=== PATIENT | male | born 1945 | race Caucasian/White ===

== ENCOUNTER 2016-08-19 17:58 | Inpatient (IN) ==
[2016-08-19] MEDS ORDERED: ONDANSETRON 4 MG/2 ML VIAL IV STA (18:31)
[2016-08-19] MEDS ORDERED: HYDROmorphone 2 MG/1 ML VIAL IV STA (18:31)
[2016-08-19] MEDS ORDERED: PIPERACILLIN/TAZOBACTAM 3,375 MG in SODIUM CHLORIDE 0.9% 100 ML IV STA (18:31)
[2016-08-19] MEDS ORDERED: PANTOPRAZOLE 40 MG VIAL IV STA (18:31)
[2016-08-19] MEDS ORDERED: SODIUM CHLORIDE 0.9% 1,000 ML IV STA (18:31)
[2016-08-19] MEDS ORDERED: ONDANSETRON 4 MG/2 ML VIAL ONE (18:44)
[2016-08-19] MEDS ORDERED: PANTOPRAZOLE 40 MG VIAL IV ONE (18:44)
[2016-08-19] MEDS ORDERED: PIPERACILLIN/TAZOBACTAM 3,375 MG VIAL IV ONE (18:44)
[2016-08-19] MEDS ORDERED: HYDROmorphone 2 MG/1 ML VIAL ONE (18:44)
--- NOTE | 2016-08-19 18:53 | Emergency Department Note ---
IAlexandr Brittany, am scribing for, and in the presence of, Stalin Capellan MD 18:40. Marilia Gongora Charles R, MD, personally performed the services described in this documentation, ascribed by Christie Strange in my presence, and it is both accurate and complete 853 . Arrival - Arrival Chief Complaint: Abdominal / Flank Pain Stated Complaint: nausea/cholostomy packed ED Nursing Triage Note: C/O States has a colostomy bag x 1 year., states today at 1500 he feels like his bag is stopped up or has a blockage, states nothing is draining out of the bag since 1500 today., states the last BM he can remember is on saturday., + nasuea., + vomited , + pain in the abdomen Mode of Arrival: Wheelchair Limitations: No Limitations Source: Patient Time Seen by Provider: 08/19/16 18:25 - History of Present Illness HPI Narrative: This is a 70 y/o white male,who presents to the ED with 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 He localizes the abdomen pain to the left lower quadrant. He states the pain is more so around his colostomy bag. He states he has had the colostomy bag for a year secondary to diverticulitis. He reports vomiting but states this is secondary to riding in the car on the way to the ED. He states the last time he has eaten was at noon today. He reports being on Aspirin and Plavex. He reports the area around the colostomy bag has been swollen today. Pt has no other complaints/pain in the ED at this time. Pt has a PMHx of CAD, thyroid disorder, and pancreatitis. Pt has had a cardiac cath with 2 stents, appendectomy, cholecystectomy, and colonoscopy. Pt has a family medical Hx of heart disease. 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) Consistency: constant Severity: severe Allergies/Adverse Reactions: Allergies Allergy/AdvReac Type Severity Reaction Status Date / Time No Known Allergies Allergy Verified 08/19/16 18:07 Home Medications: Home Medications Medication Instructions Recorded Confirmed Type Aspirin [Ecotrin] 325 mg PO DAILY 10/28/14 08/19/16 History Clopidogrel [Plavix] 75 mg PO DAILY 10/28/14 08/19/16 History Gabapentin Cap/Tab [Neurontin 300 mg PO TID 10/28/14 08/19/16 History Cap/Tab] Simvastatin [Zocor] 40 mg PO DAILY tablet 06/14/15 08/19/16 Rx Tamsulosin [Flomax] 0.4 mg PO DAILY capsule 06/14/15 08/19/16 Rx Acetaminophen Tab [Tylenol Tab] 650 mg PO Q6H PRN #0 tablet 02/21/16 08/19/16 Rx Montelukast Tab [Singulair Tab] 10 mg PO DAILY 04/13/16 08/19/16 History Ranitidine Tab [Zantac Tab] 150 mg PO BID 04/13/16 08/19/16 History Levothyroxine Tab [Synthroid Tab] 50 mcg PO DAILY 08/19/16 08/19/16 History Review of System - Review of System 12 point system: reviewed and no additional remarkable complaints except as stated - Review of System Gastrointestinal: Present: abdominal pain, nausea, vomiting Medical,Surgical,& Family Hx - Medical History Cardio: History of: CAD Neurology: No history of: Seizures HEENT: History of: HEENT Problems (cataract left eye) Endocrine: History of: Thyroid Disorder (takes levothyroxine) Gastrointestinal: History of: Hemorrhoids, Pancreatitis, Gastrointestinal Cancer , GI Problems (COLOSTOMY PLACEMENT PER DR. OLSEN 2016) Hematology: No history of: Blood Transfusion Reaction - Surgical History Cardiac Surgeries: Sugical HX of: Cardiac Catheterization (2 stents placed...2012) Abdominal Surgeries: Surgical HX of: Appendectomy (not certain), Cholecystectomy , Colonoscopy Orthopedic Surgeries: Patient denies;: Orthopedic Surgery - Family History Family History: Reports;: Family Heart Disease (parents) - Social History Smoking Status: Smoker, status unknown Frequency of Alcohol Use: None Type of Drug Use: None Exam Vital Signs: Vital Signs Temperature 97.6 F 08/19/16 18:02 Pulse Rate 105 H 08/19/16 19:00 Respiratory Rate 18 08/19/16 19:00 Blood Pressure 144/85 08/19/16 19:00 O2 Sat by Pulse Oximetry 99 08/19/16 19:00 - General General appearance: alert, in no apparent distress - Head Head exam: Present: atraumatic, normocephalic, normal inspection - Eye Eye exam: Present: normal appearance, PERRL, EOMI. Absent: nystagmus, miosis, mydriasis - ENT ENT exam: Present: normal exam, normal oropharynx, mucous membranes moist, TM's normal bilaterally, normal external ear exam - Neck Neck exam: Present: normal inspection, full ROM, trachea midline. Absent: tenderness, meningismus, lymphadenopathy, thyromegaly - Chest Chest inspection: Present: normal inspection, symmetric chest wall rise. Absent : tenderness, rash, abscess - Respiratory Respiratory exam: Present: normal lung sounds bilaterally. Absent: rales, respiratory distress, rhonchi, stridor, wheezes - Cardiovascular Cardiovascular exam: Present: regular rate, normal rhythm, normal heart sounds. Absent: murmur, rubs, gallop, clicks - Abdominal Exam Abdominal exam: Present: soft, tenderness (Tenderness around the colostomy bag area), hernia (What appears to be an incarcerated hernia), other (There is absoultely no bowel sounds). Absent: distention, guarding, rebound, rigidity - Rectal Exam Rectal exam: Present: deferred - Extremities Exam Extremities exam: Present: normal inspection, full ROM, normal capillary refill. Absent: tenderness, pedal edema, joint swelling, calf tenderness - Back Exam Back exam: Present: normal inspection, full ROM. Absent: tenderness, muscle spasm, rashes - Neurological Exam Neurological exam: Present: alert, oriented X3, CN II-XII intact. Absent: motor sensory deficit - Psychiatric Psychiatric exam: Present: normal affect, normal mood. Absent: depressed, agitated, anxious, flat affect, manic - Skin Skin exam: Present: warm, dry, intact, normal color. Absent: rash, cyanosis, diaphoresis, erythema, pallor, mottled Course - Consultations Consultation #1: Dr. Smalls saw patient emergency room he is going to come to emergency surgery for incarcerated abdominal hernia from the stoma Time: 19:16 Results - Labs CBC & BMP: 08/19/16 18:24 Lab Results: I have reviewed the patients labs Critical Care Time Critical Care Time: Yes Total Critical Care Time: 60 Disposition Clinical Impression: Abdominal pain, History of colostomy, Incarcerated hernia of abdominal cavity, Acute abdomen Case discussed with: patient, patient's family Disposition: Still a Patient Condition: Critical Time of Disposition: 19:17
[2016-08-19 19:08] LABS: Basophils % 0.4 % (0.0-0.8); Eosinophils # 0.3 10*3/uL (0.0-0.87); Eosinophils % 2.7 % (0.00-10.9); Hematocrit 38.1 VOL% (42.0-52.0); Hemoglobin 12.8 GM/DL (14.0-18.0); Immature Granulocytes % 0.5 %; Immature Granulocytes Absolute 0.05 #; Lymphocytes # 2.5 10*3/uL (1.4-4.0); Lymphocytes % 23.6 % (21.2-54.2); Mean Corpuscular HGB Conc 33.6 GM/DL (32-36); Mean Corpuscular Hemoglobin 29 PG (27-34); Mean Corpuscular Volume 84.9 FL (87-102); Mean Platelet Volume 9.1 FL (9.6-12.0); Monocytes # 0.8 10*3/uL (0.11-0.8); Monocytes % 7.4 % (1.7-12.7); Neutrophils # 6.8 10*3/uL (1.4-7.4); Neutrophils % 65.4 % (38.7-73.9); Platelet Count 355 T/CUMM (130-400); Red Blood Count 4.49 MC/CUMM (3.8-5.5); Red Cell Distribution Width 13.9 % (9.3-17.3); White Blood Count 10.5 T/CUMM (4-12)
[2016-08-19 19:19] LABS: Lactic Acid 1.9 MMOL/L (0.4-2.0)
[2016-08-19 19:22] LABS: Alanine Aminotransferase 14 U/L (16-61); Albumin 3.8 G/DL (3.4-5.0); Alkaline Phosphatase 96 U/L (45-117); Amylase 28 U/L (25-115); Aspartate Amino Transferase 12 U/L (0-37); Bilirubin,Total < 0.39 MG/DL (0.2-1.0); Blood Urea Nitrogen 10 MG/DL (7-18); Calcium 9.1 MG/DL (8.5-10.1); Glucose 173 MG/DL (74-106); Magnesium 2.2 MG/DL (1.8-2.4); Osmolality,Calculated 283.3 MOS/KG (273-304); Potassium 3.7 MMOL/L (3.5-5.1); Sodium 141 MMOL/L (136-145); Total Protein 7.7 G/DL (6.4-8.3); Troponin I Only < 0.015 NG/ML (0.00-0.045)
--- NOTE | 2016-08-19 19:24 | XRay Report ---
Single view the chest. Indication: Upper abdominal pain. Comparison: April 13, 2016. There is mild to moderate atelectasis which has developed in the left lung base. The heart is normal in size. There is calcific plaque within the right knob. The pulmonary vasculature is normal. The right lung is clear. Stable osseous structures. Impression: Development of mild to moderate left basilar atelectasis. PROCEDURE INTERPRETED AT [facility] DEPARTMENT OF RADIOLOGY Final Report Signed by: Dr. Qing Brewster
--- NOTE | 2016-08-19 19:26 | XRay Report ---
Abdomen complete. Indication: Generalized abdominal pain. Comparison: January 27, 2016. Calcified granuloma is seen in the medial aspect of the left lung base. Numerous surgical clips are present within the right upper quadrant. There is considerable fecal material within the colon. Bowel herniates into an ostomy site at the left lower quadrant. This was seen on the previous CT from February 16, 2016. There is air in mildly prominent small intestine. There are a few air-fluid levels noted. No free air. Normal osseous structures. Impression: 1. Constipation. 2. Bowel herniates into an ostomy site in the left lower quadrant. This is a stable finding. PROCEDURE INTERPRETED AT [facility] DEPARTMENT OF RADIOLOGY Final Report Signed by: Dr. Qing Brewster
--- NOTE | 2016-08-19 19:30 | General Surg History&Physical ---
Assessment and Plan (1) Incarcerated hernia of abdominal cavity Status: Acute Assessment and plan: This patient has an incarcerated parastomal hernia. This is firm and nonreducible. The patient has a bowel obstruction from this. I have recommended exploratory laparotomy with parastomal hernia repair. The patient has not had a colonoscopy or interrogation of the remainder of his GI tract so I do not think it would be a good idea to try to come back up right now in addition he is on Plavix and had a recent cardiac stent placed I think doing the minimal possible to get him well is most prudent plan at this time. I discussed the operation in detail with the patient and the expected outcomes have been reviewed. We will proceed with surgery tonight. Current Visit: Yes History of Present Illness Chief complaint: Abdominal pain with nausea and vomiting History of present illness: Mr. Willams is a 70 year old male who is admitted to the ER with abdominal pain and firmness over his parastomal hernia. He has also had nausea and vomiting. He had a colostomy done for perforated diverticulitis by Dr. Olsen in April 2015 and recently had coronary artery stents placed in April 2016 and is currently on Plavix and aspirin. He presents to the ER today with acute tenderness over his parastomal hernia which is been present for some time. He also developed nausea and vomiting. Home Medications Medication Instructions Recorded Confirmed Type Aspirin [Ecotrin] 325 mg PO DAILY 10/28/14 08/19/16 History Clopidogrel [Plavix] 75 mg PO DAILY 10/28/14 08/19/16 History Gabapentin Cap/Tab [Neurontin 300 mg PO TID 10/28/14 08/19/16 History Cap/Tab] Simvastatin [Zocor] 40 mg PO DAILY tablet 06/14/15 08/19/16 Rx Tamsulosin [Flomax] 0.4 mg PO DAILY capsule 06/14/15 08/19/16 Rx Acetaminophen Tab [Tylenol Tab] 650 mg PO Q6H PRN #0 tablet 02/21/16 08/19/16 Rx Montelukast Tab [Singulair Tab] 10 mg PO DAILY 04/13/16 08/19/16 History Ranitidine Tab [Zantac Tab] 150 mg PO BID 04/13/16 08/19/16 History Levothyroxine Tab [Synthroid Tab] 50 mcg PO DAILY 08/19/16 08/19/16 History Allergies Allergy/AdvReac Type Severity Reaction Status Date / Time No Known Allergies Allergy Verified 08/19/16 18:07 Medical,Surgical,& Family Hx - Medical History Cardio: History of: CAD Neurology: No history of: Seizures HEENT: History of: HEENT Problems (cataract left eye) Endocrine: History of: Thyroid Disorder (takes levothyroxine) Gastrointestinal: History of: Hemorrhoids, Pancreatitis, Gastrointestinal Cancer , GI Problems (COLOSTOMY PLACEMENT PER DR. OLSEN 2016) Hematology: No history of: Blood Transfusion Reaction - Surgical History Cardiac Surgeries: Sugical HX of: Cardiac Catheterization (2 stents placed...2012) Abdominal Surgeries: Surgical HX of: Appendectomy (not certain), Cholecystectomy , Colonoscopy Orthopedic Surgeries: Patient denies;: Orthopedic Surgery - Family History Family History: Reports;: Family Heart Disease (parents) - Social History Smoking Status: Smoker, status unknown Frequency of Alcohol Use: None Type of Drug Use: None Exam - Constitutional Vitals: Period Temp Pulse Resp BP Sys/Butler Pulse Ox Last 24 Hr 97.6 F-97.6 F 90-105 18-18 127-176/67-94 97-99 General appearance: normal weight, no acute distress - Head Head exam: Present: normal inspection, normocephalic - Eye Eye exam: Present: EOMI Pupils: Present: PATRICIO - ENT ENT exam: Present: normal exam Mouth exam: Present: normal external inspection, normal voice - Neck Neck exam: Present: normal inspection, trachea midline - Respiratory Respiratory exam: Present: clear to auscultation bilaterally. Absent: accessory muscle use, chest wall tenderness - Cardiovascular Cardiovascular exam: Present: tachycardia. Absent: RRR, systolic murmur - GI/Abdominal GI/Abdominal exam: Present: hypoactive bowel sounds, tenderness (There is acute tenderness over the parastomal hernia which is firm to the touch. There is no ostomy output), other (There is a firm mass over the parastomal hernia which is exquisitely tender and nonreducible.). Absent: guarding, rebound - Extremities Exam Extremities exam: Present: normal inspection, normal capillary refill - Back Exam Back exam: Present: normal inspection - Neurological Exam Neurological exam: Present: alert, oriented X3 Speech: Present: normal - Skin Skin exam: Present: normal color, warm - Constitutional Constitutional: Present: as per HPI - EENT Nose, mouth and throat: Present: as per HPI - Cardiovascular Cardiovascular: Present: as per HPI - Respiratory Respiratory: Present: as per HPI - Gastrointestinal Gastrointestinal: Present: as per HPI - Genitourinary Genitourinary: Present: as per HPI - Musculoskeletal Musculoskeletal: Present: as per HPI - Neurological Neurological: Present: as per HPI - Endocrine Endocrine: Present: as per HPI Hematologic/Lymphatic: Present: as per HPI Quality Measures - VTE Contraindication to Pharmacological VTE Prophylaxis: High Risk of Bleeding Results - Labs CBC & BMP: 08/19/16 18:24 08/19/16 18:24 - Diagnostic Findings Procedure: Chest x-ray: image reviewed by FRAN singh x-ray: image reviewed by me
[2016-08-19] MEDS ORDERED: PROPOFOL 1,000 MG/100 ML BOTTLE IV ONE (20:47)
--- NOTE | 2016-08-19 20:48 | Operative Note ---
Date of procedure: 08/19/16 Pre-op diagnosis: Incarcerated parastomal hernia Post-op diagnosis: same Procedure: Preoperative diagnosis Incarcerated parastomal hernia Postoperative diagnosis Incarcerated parastomal hernia with small bowel strangulation Procedures performed 1. Exploratory laparotomy 2. Reduction of parastomal hernia Findings A loop of small bowel was stuck in the parastomal hernia and an additional adhesion between the small bowel and the abdominal wall and omentum had created an internal hernia that had resulted in necrotic appearing small bowel. This was reduced manually by pushing on the ostomy site and also pulling gently internally and the hernia was reduced. The bowel pinked up some but still appeared slightly purple and dusky in portions of the area that was reduced. Once all of the bowel contents were reduced I made the decision to leave the abdomen open with a temporary abdominal closure rather than commit to any bowel resection up front with hopes that his small bowel pink up over the next day or 2 and he will not require any resection. Complications None apparent Specimen None Anesthesia GETA Blood loss Minimal Indications Incarcerated parastomal hernia Description of procedure The patient was taken to the operating room and transferred to the operating table in the supine position. Pressure points were padded and SCDs were placed to lower extremities. General endotracheal anesthesia was administered. The abdomen was prepped with Betadine and draped sterilely. Preoperative antibiotics were administered, and a timeout was performed. The abdomen was entered with a midline incision using the patient's prior midline incision and electrocautery was used to open the fascia. There is a lot of adhesions to the midline and these were taken down with sharp dissection. Once the adhesions were taken down in the midline it became apparent that there was necrotic distended small bowel there was looping into the parastomal hernia. In addition , there were adhesive bands between the small bowel and the abdominal wall as well as several pieces of omentum that had resulted in a necrotic appearing strangulated small bowel segment. This hernia was reduced with adhesio lysis and also with external pressure on the ostomy site. Once the mesentery was untwisted the small bowel pinked up. There was some areas of ecchymosis on the bowel wall and also some purplish areas and skip lesions that appeared dusky and overall there was nothing grossly necrotic after waiting several minutes and reevaluating the bowel and nothing was resected upfront. There is enough concern that I decided to close the abdomen with a temporary abdominal closure using a wound VAC and plan for second look laparotomy in the next 24-48 hours with plans for definitive repair of the parastomal hernia and reevaluation of the small bowel at that time. The patient was dressed with an abscess or abdominal wound VAC in his ostomy appliance was reapplied. He was transferred to the ICU and left on the ventilator. Postoperative plan Second look laparotomy in 24-48 hours Anesthesia: JOLENE Surgeon / Physician: Nabeel Smalls Estimated blood loss: minimal Specimens: none sent Condition: stable Disposition: ICU Results - Labs CBC & BMP: 08/19/16 18:24 08/19/16 18:24 Discharge Plan - Discharge Medications No Action Gabapentin Cap/Tab [Neurontin Cap/Tab] 300 mg PO TID Clopidogrel [Plavix] 75 mg PO DAILY Aspirin [Ecotrin] 325 mg PO DAILY Simvastatin [Zocor] 40 mg PO DAILY tablet Tamsulosin [Flomax] 0.4 mg PO DAILY capsule Montelukast Tab [Singulair Tab] 10 mg PO DAILY Ranitidine Tab [Zantac Tab] 150 mg PO BID Levothyroxine Tab [Synthroid Tab] 50 mcg PO DAILY Acetaminophen Tab [Tylenol Tab] 650 mg PO Q6H PRN #0 tablet PRN Reason: Pain Mild (1-3) And/Or Fever - Follow Up or Referral - Forms/Instructions
[2016-08-19 20:49] LABS: Amorphous Crystals,Urine Occasional /HPF (Few); Apearance,Urine Slightly Hazy (Clear); Bilirubin,Urine Negative (Negative); Blood, Urine Negative (Negative); Glucose,Urine (UA) Negative (Negative); Hyaline Casts,Urine 2 /LPF (0-3); Ketones,Urine 5 mg/dL (Negative); Mucus,Urine Occasional /LPF (Occasional); Nitrite,Urine Negative (Negative); Protein,Urine Negative; RBC,Urine 2 /HPF (0-4); Urine Color Yellow (Yellow); Urine Specific Gravity 1.011 (1.001-1.035); Urine Urobilinogen < 2.0 EU/DL (0.2-1.0); WBC,Urine 1 /HPF (0-6)
[2016-08-19] MEDS ORDERED: fentaNYL 100 MCG/2 ML VIAL ONE (20:56)
[2016-08-19] MEDS ORDERED: MIDAZOLAM 2 MG/2 ML VIAL ONE (20:56)
[2016-08-19] MEDS ORDERED: DESFLURANE 1 UNIT/15 MINUTE INH ONE (20:56)
[2016-08-19] MEDS: PROPOFOL 1,000 MG/100 ML BOTTLE IV SCH (21:00)
[2016-08-19 21:26] LABS: ABG Base Excess 0.9 MMOL/L (-2.5-2.5); ABG HCO3 25.2 MMOL/L (20-26); ABG Oxygen Saturation 99.3 % (95-100); ABG PCO2 47.5 MM HG (35-48); ABG PH 7.361 (7.35-7.45); Allen Test Positive; Pt O2 Delivery Device Ventilator
[2016-08-19] MEDS ORDERED: PROMETHAZINE 25 MG/1 ML VIAL IM PRN (21:28)
[2016-08-19] MEDS: LACTATED RINGERS 1,000 ML IV SCH (21:33)
[2016-08-19] MEDS: HYDROmorphone 2 MG/1 ML VIAL IV PRN (21:59)
[2016-08-20] MEDS: GABAPENTIN 300 MG CAPSULE PO SCH ×4 (00:02→23:11)
[2016-08-20] MEDS: FAMOTIDINE 20 MG TABLET PO SCH ×3 (00:02→12:29)
[2016-08-20] MEDS: HYDROmorphone 2 MG/1 ML VIAL IV PRN ×5 (00:30→17:56)
--- NOTE | 2016-08-20 02:37 | EKG Report ---
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
[2016-08-20 03:24] LABS: ABG Base Excess 2.8 MMOL/L (-2.5-2.5); ABG HCO3 27.8 MMOL/L (20-26); ABG Oxygen Saturation 98.2 % (95-100); ABG PCO2 44.3 MM HG (35-48); ABG PH 7.416 (7.35-7.45); ABG PO2 125.3 MM HG (80-95); ABG TCO2 29.2 MMOL/L (23-27); Allen Test Positive; Pt O2 Delivery Device Ventilator
[2016-08-20] MEDS ORDERED: LACTATED RINGERS 1,000 ML IV ONE ×5 (04:51→23:50)
[2016-08-20 05:12] LABS: Basophils % 0.3 % (0.0-0.8); Eosinophils % 0.2 % (0.00-10.9); Hematocrit 34.5 VOL% (42.0-52.0); Hemoglobin 11.3 GM/DL (14.0-18.0); Immature Granulocytes % 0.4 %; Immature Granulocytes Absolute 0.06 #; Lymphocytes # 0.4 10*3/uL (1.4-4.0); Lymphocytes % 2.4 % (21.2-54.2); Mean Corpuscular HGB Conc 32.8 GM/DL (32-36); Mean Corpuscular Hemoglobin 28 PG (27-34); Mean Corpuscular Volume 86.3 FL (87-102); Mean Platelet Volume 9.2 FL (9.6-12.0); Monocytes # 0.7 10*3/uL (0.11-0.8); Monocytes % 4.6 % (1.7-12.7); Neutrophils # 14.5 10*3/uL (1.4-7.4); Neutrophils % 92.1 % (38.7-73.9); Platelet Count 267 T/CUMM (130-400); Red Cell Distribution Width 13.8 % (9.3-17.3); White Blood Count 15.7 T/CUMM (4-12)
[2016-08-20 05:39] LABS: Calcium 7.8 MG/DL (8.5-10.1); Osmolality,Calculated 283.1 MOS/KG (273-304)
[2016-08-20 05:52] LABS: Band Neutrophils 15 % (0-10); Hypochromasia 1+; Lymphocytes 1 % (20-55); Metamyelocytes 1 %; Segmented Neutrophils 82 % (50-85); Total Cells Counted 100
[2016-08-20 05:53] LABS: Microcytosis Slight
[2016-08-20] MEDS ORDERED: ALBUMIN IV ONE (06:47)
[2016-08-20] MEDS ORDERED: ALBUMIN 5% 12.5 GM/250 ML VIAL IV ONE ×3 (06:48→23:48)
[2016-08-20] MEDS: LACTATED RINGERS 1,000 ML IV SCH ×3 (06:49→23:14)
[2016-08-20] MEDS: PROPOFOL 1,000 MG/100 ML BOTTLE IV SCH ×2 (06:57→23:10)
--- NOTE | 2016-08-20 06:58 | XRay Report ---
Exam: XR chest 1V portable Indication: Intubated Comparison study: Prior chest radiograph 08/19/2016 at 6:40 PM Findings: Endotracheal tube now noted in place which terminates approximately 4 cm from the pepper. Esophagogastric tube travels below the [id number] into the stomach. The proximal sidehole is at the gastroesophageal junction. Advancement 5 cm is recommended for more optimal positioning. Minimal perihilar opacities are noted which are slightly increased from the prior study likely due to atelectasis and low lung volumes. There is no focal consolidation, pneumothorax or pleural effusion identified. Osseous structures appear stable from prior. Impression: Interval intubation. Esophagogastric tube travels below the [id number] but the sidehole is noted in the distal esophagus and advancement 5 cm is recommended for more optimal positioning. Minimal perihilar and basilar opacities likely represent atelectasis, which are minimally increased from prior. PROCEDURE INTERPRETED AT [facility] DEPARTMENT OF RADIOLOGY Final Report Signed by: Raulito Flor
[2016-08-20] MEDS: LEVOTHYROXINE 50 MCG TABLET PO SCH (06:59)
--- NOTE | 2016-08-20 07:23 | XRay Report ---
Exam: XR chest 1V portable Date: 08/20/2016 4:00 AM Indication: Shortness of breath Comparison: 08/19/2016 Technical: AP portable Findings: Endotracheal tube is at the level aortic knob. Nasogastric tube and external cardiac leads are unchanged. Minimal atelectatic change in the left base. ASVD is present. Heart is normal in size. No pneumothorax. Impression: 1. Stable appearance of life support tubing 2. Persistent atelectatic change or infiltrate in the left base PROCEDURE INTERPRETED AT [facility] DEPARTMENT OF RADIOLOGY Final Report Signed by: Dr. Tylor Summers
--- NOTE | 2016-08-20 07:35 | Pulmonology Consult Note ---
Assessment and Plan (1) Hypotension Status: Acute Assessment and plan: The patient is on the ventilator postop and does have some hypotension. He is probably on the dry side. He will continue with fluid resuscitation. Current Visit: Yes (2) On mechanically assisted ventilation Status: Acute Assessment and plan: Patient is stable on the ventilator and is probably going back to surgery today. Current Visit: No (3) Coronary artery disease Status: Chronic Assessment and plan: The patient has had stents done in the recent past. Current Visit: No (4) Pancreatic cancer Status: Chronic Assessment and plan: The patient apparently had a Whipple procedure several years ago. Current Visit: No (5) Incarcerated hernia of abdominal cavity Status: Acute Assessment and plan: Patient comes in with an incarcerated ventral hernia is now postop. He will go back for relook operation today. Current Visit: Yes (6) Acute abdomen Status: Acute Assessment and plan: Patient came in with nausea vomiting and acute abdomen and is now postop. Current Visit: Yes History of Present Illness Chief complaint: Ventilator management History of present illness: Mr. Willams is a 70 year old white male that presented to the emergency room with abdominal pain and nausea and vomiting. He has had a previous colostomy for perforated diverticular disease. He had a ventral hernia that appeared incarcerated. He had an acute abdomen and was taken to the OR last night had the incarcerated ventral hernia repaired did have some small bowel strangulation. His abdomen was left open and he is stable on the ventilator. He is somewhat hypotensive and getting fluids. Otherwise he is reasonably alert and comfortable. He is going back to surgery today to have a relook operation. The patient has had known coronary artery disease and has had stents done in the past. He takes thyroid replacement. Otherwise he apparently has been fairly healthy. Home Medications Medication Instructions Recorded Confirmed Type Aspirin [Ecotrin] 325 mg PO DAILY 10/28/14 08/19/16 History Clopidogrel [Plavix] 75 mg PO DAILY 10/28/14 08/19/16 History Gabapentin Cap/Tab [Neurontin 300 mg PO TID 10/28/14 08/19/16 History Cap/Tab] Simvastatin [Zocor] 40 mg PO DAILY tablet 06/14/15 08/19/16 Rx Tamsulosin [Flomax] 0.4 mg PO DAILY capsule 06/14/15 08/19/16 Rx Acetaminophen Tab [Tylenol Tab] 650 mg PO Q6H PRN #0 tablet 02/21/16 08/19/16 Rx Montelukast Tab [Singulair Tab] 10 mg PO DAILY 04/13/16 08/19/16 History Ranitidine Tab [Zantac Tab] 150 mg PO BID 04/13/16 08/19/16 History Levothyroxine Tab [Synthroid Tab] 50 mcg PO DAILY 08/19/16 08/19/16 History Allergies Allergy/AdvReac Type Severity Reaction Status Date / Time No Known Allergies Allergy Verified 08/19/16 18:07 ROS unobtainable: due to endotracheal tube (He is on the ventilator and unable to give a history.) Exam (Pulmonay) H&P - Constitutional Vitals: Period Temp Pulse Resp BP Sys/Butler Pulse Ox Last 24 Hr 97 F-101.9 F 90-117 8-20 76-189/44-94 97-100 General appearance: normal weight, no acute distress (Patient is alert on the ventilator.) - Head Head exam: Present: normal inspection, normocephalic - Eye Eye exam: Present: EOMI. Absent: scleral icterus Pupils: Present: PATRICIO - ENT ENT exam: Present: normal exam, other (ET tube is in good position) - Neck Neck exam: Present: normal inspection. Absent: lymphadenopathy, thyromegaly - Respiratory Respiratory exam: Present: clear to auscultation bilaterally. Absent: wheezes - Cardiovascular Cardiovascular exam: Present: regular rate and rhythm, tachycardia. Absent: gallop, systolic murmur - GI/Abdominal GI/Abdominal exam: Present: soft, other (Abdomen is wrapped and is still open with a wound VAC in place.). Absent: distended - Extremities Exam Extremities exam: Absent: calf tenderness, edema - Neurological Exam Neurological exam: Present: alert - Psychiatric Psychiatric exam: Present: normal affect - Skin Skin exam: Present: warm, dry Medical,Surgical,& Family Hx - Medical History Cardio: History of: CAD Neurology: No history of: Seizures HEENT: History of: HEENT Problems (cataract left eye) Endocrine: History of: Thyroid Disorder (takes levothyroxine) Gastrointestinal: History of: Hemorrhoids, Pancreatitis, Gastrointestinal Cancer , GI Problems (COLOSTOMY PLACEMENT PER DR. OLSEN 2016) Hematology: No history of: Blood Transfusion Reaction - Surgical History Cardiac Surgeries: Sugical HX of: Cardiac Catheterization (2 stents placed...2012April 2016) Thoracic Surgeries: Patient denies;: Organ Transplant Abdominal Surgeries: Surgical HX of: Abdominal Surgery, Appendectomy (not certain), Cholecystectomy, Colonoscopy Reproductive Surgeries: Patient denies;: Genitourinary Surgery Orthopedic Surgeries: Patient denies;: Orthopedic Surgery - Family History Family History: Reports;: Family Heart Disease (parents) - Social History Smoking Status: Smoker, status unknown Frequency of Alcohol Use: None Type of Drug Use: None Results - Labs CBC & BMP: 08/20/16 04:52 08/20/16 04:52 Labs: PO2 is 125 with a PCO2 of 44 and a pH of 7.41 - Diagnostic Findings Procedure: Chest x-ray: image reviewed by me, report reviewed by me (Chest x- ray is clear) Quality Measures - VTE Contraindication to Pharmacological VTE Prophylaxis: High Risk of Bleeding
--- NOTE | 2016-08-20 08:21 | Cardiology Consult Note ---
Assessment and Plan (1) Stented coronary artery Status: Acute Assessment and plan: Patient has stable CAD currently. He had multiple LAD stents placed in April of this year and needs to continue his Plavix and aspirin for another 9 months. He is currently stable on Plavix and our plan will be to continue it as long as he is not having active bleeding. Current Visit: Yes (2) History of colostomy Status: Chronic Current Visit: Yes (3) Coronary artery disease Status: Chronic Current Visit: No (4) Hypercholesterolemia Status: Chronic Current Visit: No History of Present Illness - Data of Consult Patient: known to practice within the last 3 years - Consult Narrative Reason for consult: bowel obstruction on plavix with mul History of present illness: Mr. Willams is a 70 year old male who in April of this year underwent multiple stents placed to his LAD. He had 2 proximal LAD stents 2 mid LAD stents. He apparently is done well since that time. He has a history of an incarcerated parastomal hernia related to his colostomy. He has been on Plavix and aspirin since he had his intervention and has had no significant bleeding. He was taken to surgery and had a repair of his hernia and is going to be re-explored today. He is not having symptoms related to active angina. He is awake and alert without complaints. He is conversant but intubated but appears awake and appropriate. He denies breathing difficulties had no anginal chest pain no orthopnea or PND. CC: Nabeel Smalls MD - Home Medications and Allergies Home Medications: Home Medications Medication Instructions Recorded Confirmed Type Aspirin [Ecotrin] 325 mg PO DAILY 10/28/14 08/19/16 History Clopidogrel [Plavix] 75 mg PO DAILY 10/28/14 08/19/16 History Gabapentin Cap/Tab [Neurontin 300 mg PO TID 10/28/14 08/19/16 History Cap/Tab] Simvastatin [Zocor] 40 mg PO DAILY tablet 06/14/15 08/19/16 Rx Tamsulosin [Flomax] 0.4 mg PO DAILY capsule 06/14/15 08/19/16 Rx Acetaminophen Tab [Tylenol Tab] 650 mg PO Q6H PRN #0 tablet 02/21/16 08/19/16 Rx Montelukast Tab [Singulair Tab] 10 mg PO DAILY 04/13/16 08/19/16 History Ranitidine Tab [Zantac Tab] 150 mg PO BID 04/13/16 08/19/16 History Levothyroxine Tab [Synthroid Tab] 50 mcg PO DAILY 08/19/16 08/19/16 History Allergies/Adverse Reactions: Allergies Allergy/AdvReac Type Severity Reaction Status Date / Time No Known Allergies Allergy Verified 08/19/16 18:07 Medical,Surgical,& Family Hx - Medical History Cardio: History of: CAD Neurology: No history of: Seizures HEENT: History of: HEENT Problems (cataract left eye) Endocrine: History of: Thyroid Disorder (takes levothyroxine) Gastrointestinal: History of: Hemorrhoids, Pancreatitis, Gastrointestinal Cancer , GI Problems (COLOSTOMY PLACEMENT PER DR. OLSEN 2016) Hematology: No history of: Blood Transfusion Reaction - Surgical History Cardiac Surgeries: Sugical HX of: Cardiac Catheterization (2 stents placed...2012April 2016) Thoracic Surgeries: Patient denies;: Organ Transplant Abdominal Surgeries: Surgical HX of: Abdominal Surgery, Appendectomy (not certain), Cholecystectomy, Colonoscopy Reproductive Surgeries: Patient denies;: Genitourinary Surgery Orthopedic Surgeries: Patient denies;: Orthopedic Surgery - Family History Family History: Reports;: Family Heart Disease (parents) - Social History Smoking Status: Smoker, status unknown Frequency of Alcohol Use: None Type of Drug Use: None Physical Examination Vital Signs Temp Pulse Resp BP Pulse Ox 97.6 F 93 H 18 176/94 97 08/19/16 18:02 08/19/16 18:02 08/19/16 18:02 08/19/16 18:02 08/19/16 18:02 Exam: Physical examination: General: The patient is awake and alert and oriented -3. Mood and affect are normal. HEENT: Normocephalic, sclera are clear there are no lid xanthelasmas noted. Oral mucosa is free of cyanosis or pallor. Neck: The neck is supple without JVD. Carotid upstrokes are normal volume and amplitude. There are faint carotid bruits bilaterally. There is no palpable thyroid. Trachea is midline. Chest: Lungs: The patient is comfortable at rest without intercostal retractions or abdominal breathing. There are no adventitial sounds rales rubs rhonchi or wheezes noted. Cardiovascular: The PMI is nondisplaced. No palpable thrill S3 or S4. There is a regular rate and rhythm with a grade 3 murmur of what sounds like mitral insufficiency. No rub or gallop noted. Dorsalis pedis posterior tibial pulses are 1+ and equal and femoral pulses are 2+ and equal bilaterally. Abdomen: Abdomen is soft and nontender with normal active bowel sounds. There is no palpable mass or organomegaly noted. There is no midline bruit. Extremities exam: There is no cyanosis clubbing or edema. Skin: Skin is warm and dry without ecchymosis or urticaria or skin rash. There are no palpable nodules. Musculoskeletal: There is no kyphosis or scoliosis noted. Result/EKG - Labs CBC & BMP: 08/20/16 04:52 08/20/16 04:52 Labs: Laboratory Results - last 24 hr 08/19/16 08/19/16 08/19/16 18:24 18:24 20:45 WBC 10.5 RBC 4.49 Hgb 12.8 L Hct 38.1 L MCV 84.9 L MCH 29 MCHC 33.6 RDW 13.9 Plt Count 355 MPV 9.1 L Neut % (Auto) 65.4 Lymph % (Auto) 23.6 [place] % (Auto) 7.4 Eos % (Auto) 2.7 Baso % (Auto) 0.4 Neut # (Auto) 6.8 Lymph # (Auto) 2.5 [place] # (Auto) 0.8 Eos # (Auto) 0.3 Baso # (Auto) 0.0 Total Counted Immature Gran % 0.5 Nucleated RBC % 0.0 Immature Gran # 0.05 Segmented Neutrophils Band Neutrophils Lymphocytes Monocytes Metamyelocytes Nucleated RBCs # 0.00 Hypochromasia Microcytosis Morphology Comment ABG pH ABG pCO2 ABG pO2 ABG HCO3 ABG Total CO2 ABG O2 Saturation ABG Base Excess FiO2 Sodium 141 Potassium 3.7 Chloride 103 Carbon Dioxide 27 Anion Gap 14.7 BUN 10 Creatinine 0.80 GFR Calculation 99 BUN/Creatinine Ratio 12.00 Glucose 173 H Calculated Osmolality 283.3 Lactic Acid 1.9 Calcium 9.1 Magnesium 2.2 Total Bilirubin < 0.39 AST 12 ALT 14 L Alkaline Phosphatase 96 Troponin I < 0.015 Total Protein 7.7 Albumin 3.8 Globulin 3.9 H Albumin/Globulin Ratio 0.9 L Amylase 28 Lipase 91.0 Urine Color Yellow Urine Appearance Slightly hazy Urine pH 7.0 Ur Specific [place] 1.011 Urine Protein Negative Urine Glucose (UA) Negative Urine Ketones 5 Urine Blood Negative Urine Nitrate Negative Urine Bilirubin Negative Urine Urobilinogen < 2.0 H Urine Leukocytes Negative Urine RBC 2 Urine WBC 1 Amorphous Crystals Occasional Hyaline Casts 2 Urine Mucus Occasional Ur Culture Indicated? Not indicated 08/19/16 08/20/16 08/20/16 21:10 03:12 04:52 WBC 15.7 H D RBC 4.00 Hgb 11.3 L Hct 34.5 L MCV 86.3 L MCH 28 MCHC 32.8 RDW 13.8 Plt Count 267 D MPV 9.2 L Neut % (Auto) 92.1 H Lymph % (Auto) 2.4 L [place] % (Auto) 4.6 Eos % (Auto) 0.2 Baso % (Auto) 0.3 Neut # (Auto) 14.5 H Lymph # (Auto) 0.4 L [place] # (Auto) 0.7 Eos # (Auto) 0.0 Baso # (Auto) 0.0 Total Counted 100 Immature Gran % 0.4 Nucleated RBC % 0.0 Immature Gran # 0.06 Segmented Neutrophils 82 Band Neutrophils 15 H Lymphocytes 1 L Monocytes 1 L Metamyelocytes 1 Nucleated RBCs # 0.00 Hypochromasia 1+ Microcytosis Slight Morphology Comment ABG pH 7.361 7.416 ABG pCO2 47.5 44.3 ABG pO2 219.0 H 125.3 H ABG HCO3 25.2 27.8 H ABG Total CO2 24.0 29.2 H ABG O2 Saturation 99.3 98.2 ABG Base Excess 0.9 2.8 H FiO2 50.00 50.00 Sodium Potassium Chloride Carbon Dioxide Anion Gap BUN Creatinine GFR Calculation BUN/Creatinine Ratio Glucose Calculated Osmolality Lactic Acid Calcium Magnesium Total Bilirubin AST ALT Alkaline Phosphatase Troponin I Total Protein Albumin Globulin Albumin/Globulin Ratio Amylase Lipase Urine Color Urine Appearance Urine pH Ur Specific [place] Urine Protein Urine Glucose (UA) Urine Ketones Urine Blood Urine Nitrate Urine Bilirubin Urine Urobilinogen Urine Leukocytes Urine RBC Urine WBC Amorphous Crystals Hyaline Casts Urine Mucus Ur Culture Indicated? 08/20/16 04:52 WBC RBC Hgb Hct MCV MCH MCHC RDW Plt Count MPV Neut % (Auto) Lymph % (Auto) [place] % (Auto) Eos % (Auto) Baso % (Auto) Neut # (Auto) Lymph # (Auto) [place] # (Auto) Eos # (Auto) Baso # (Auto) Total Counted Immature Gran % Nucleated RBC % Immature Gran # Segmented Neutrophils Band Neutrophils Lymphocytes Monocytes Metamyelocytes Nucleated RBCs # Hypochromasia Microcytosis Morphology Comment ABG pH ABG pCO2 ABG pO2 ABG HCO3 ABG Total CO2 ABG O2 Saturation ABG Base Excess FiO2 Sodium 142 Potassium 4.0 Chloride 107 Carbon Dioxide 26 Anion Gap 13.0 BUN 13 Creatinine 0.80 GFR Calculation 99 BUN/Creatinine Ratio 16.00 Glucose 119 H Calculated Osmolality 283.1 Lactic Acid Calcium 7.8 L Magnesium Total Bilirubin AST ALT Alkaline Phosphatase Troponin I Total Protein Albumin Globulin Albumin/Globulin Ratio Amylase Lipase Urine Color Urine Appearance Urine pH Ur Specific [place] Urine Protein Urine Glucose (UA) Urine Ketones Urine Blood Urine Nitrate Urine Bilirubin Urine Urobilinogen Urine Leukocytes Urine RBC Urine WBC Amorphous Crystals Hyaline Casts Urine Mucus Ur Culture Indicated? - EKG EKG results: interpreted by me (EKG shows sinus rhythm with left anterior hemiblock which is borderline. No acute changes are noted) Quality Measures - VTE Contraindication to Pharmacological VTE Prophylaxis: High Risk of Bleeding
--- NOTE | 2016-08-20 08:26 | EKG Report ---
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
[2016-08-20] MEDS ORDERED: LACTATED RINGERS 700 ML IV ONE (08:48)
[2016-08-20] MEDS: PANTOPRAZOLE 40 MG VIAL IV SCH (08:49)
[2016-08-20] MEDS: PIPERACILLIN/TAZOBACTAM 3,375 MG in SODIUM CHLORIDE 0.9% 100 ML IV SCH ×2 (08:50→17:57)
[2016-08-20] MEDS ORDERED: ASPIRIN EC 81 MG TABLET PO SCH (09:00)
[2016-08-20] MEDS ORDERED: ASPIRIN EC 325 MG TABLET PO SCH (09:00)
--- NOTE | 2016-08-20 10:35 | Ultrasound Report ---
Exam: US carotid duplex BI Date: 08/20/2016 8:32 AM Indication: Carotid bruit Comparison 11/20/2011 Findings: Grayscale color flow analysis and spectral analysis imaging was performed with image stored and captured. Right Flow velocities centimeters per second Common carotid artery: 98 Proximal ICA: 215 Distal ICA: 154 External carotid artery: 152 Vertebral artery: 52 ICA/CCA ratio: 2.2 Measurements in millimeters Distal ICA: 3.5 Left: Flow velocities centimeters per second Common carotid artery: 91 Proximal ICA: 170 Distal ICA: 311 External carotid artery: 172 Vertebral artery: 63 ICA/CCA ratio: 3.4 Measurements in millimeters Distal ICA: 4.1 Some spectral broadening present. Moderate plaque present bilaterally with elevated velocities. Abnormal color flow Impression: 1. 50-70% stenosis right ICA 2. 70-80% stenosis left ICA 3. Increased velocities and calcification and plaque when compared to previous study. CT angiography may be beneficial or formal arteriography further evaluation Today studies were performed utilizing indirect NASCET criteria The ultrasound images were stored and captured PROCEDURE INTERPRETED AT [facility] Final Report Signed by: Dr. Tylor Summers
[2016-08-20] MEDS ORDERED: ASPIRIN CHEW 81 MG TABLET PO ONE (11:42)
[2016-08-20] MEDS: ASPIRIN CHEW 81 MG TABLET PO SCH (12:29)
[2016-08-20] MEDS: CLOPIDOGREL 75 MG TABLET PO SCH (12:29)
[2016-08-20] MEDS: MONTELUKAST 10 MG TABLET PO SCH (12:29)
[2016-08-20] MEDS: TAMSULOSIN 0.4 MG CAPSULE PO SCH (12:29)
[2016-08-20] MEDS: SIMVASTATIN 40 MG TABLET PO SCH (12:29)
--- NOTE | 2016-08-20 12:31 | ECHO Report ---
[facility] Exam Date: 08/20/2016 10:06 Referring Physician: Technologist: Age: 70 Ht (in): Wt (lb): Gender: M Exam Location: [facility] Echo Indications: BP: / HR: Rhythm: Sinus Technical Quality: Fair IMPRESSIONS Normal LV size and EF estimated to be in the 60% range AoV,MV calcification with preserved excursion Doppler study reveals trivial , mild TR at velocities suggesting sPAP of 30 mmHg LA chamber sizes are normal MEASUREMENTS (Male / Female) Normal Values 2D ECHO LV Diastolic Diameter PLAX 4.1 cm 4.2 - 5.9 / 3.9 - 5.3 cm LV Systolic Diameter PLAX 2.9 cm LV Fractional Shortening PLAX 28.5 % IVS Diastolic Thickness 1.2 cm 0.6 - 1.0 / 0.6 - 0.9 cm LVPW Diastolic Thickness 1.1 cm 0.6 - 1.0 / 0.6 - 0.9 cm RV Internal Dim ED PLAX 2.2 cm Aortic Root Diameter 2.7 cm LA Systolic Diameter LX 3.1 cm 3.0 - 4.0 / 2.7 - 3.8 cm DOPPLER TR Peak Velocity 197.0 cm/s TR Peak Gradient 15.5 mmHg FINDINGS Left Ventricle Right Ventricle Right Atrium Left Atrium Mitral Valve Aortic Valve Tricuspid Valve Pulmonic Valve Pericardium Aorta Petey Carrero MD (Electronically Signed) Final Date: 20 August 2016 11:54
[2016-08-20] MEDS ORDERED: PHENYLEPHRINE DRIP 40 MG/250 ML PREMIX IV ONE (13:05)
[2016-08-20] MEDS: PHENYLEPHRINE DRIP 40 MG/250 ML PREMIX IV SCH (13:07)
[2016-08-20] MEDS ORDERED: VECURONIUM 10 MG VIAL IV ONE (13:50)
[2016-08-20] MEDS ORDERED: PHENYLEPHRINE 1 MG/10 ML SYRINGE IV ONE (13:50)
[2016-08-20] MEDS ORDERED: TISSUE ADHESIVE 1 EACH APPLICATOR TOP ONE (17:00)
[2016-08-20] MEDS ORDERED: fentaNYL 100 MCG/2 ML VIAL ONE (17:30)
[2016-08-20] MEDS ORDERED: MIDAZOLAM 2 MG/2 ML VIAL ONE (17:31)
[2016-08-20] MEDS ORDERED: SEVOFLURANE 1 UNIT/15 MINUTE INH ONE (17:36)
--- NOTE | 2016-08-20 17:40 | Anesthesia Post-Op ---
Anesthesia Post OP - Post Ansesthetic Evaluation Patient seen in post op: Yes Resp: within normal limits CV: within normal limits Mental: within normal limits Temp: within normal limits [id number]: within normal limits Nausea and Vomiting: within normal limits Pain: within normal limits
[2016-08-20] MEDS: ENOXAPARIN 40 MG/0.4 ML SYRINGE SUBCUT SCH (17:48)
[2016-08-20] MEDS ORDERED: LIDOCAINE 100 MG/5 ML SYRINGE ONE (19:42)
[2016-08-20] MEDS ORDERED: ETOMIDATE 20 MG/10 ML VIAL IV ONE (19:42)
[2016-08-20] MEDS ORDERED: SUCCINYLCHOLINE 200 MG/10 ML VIAL ONE (19:42)
[2016-08-20] MEDS ORDERED: ROCURONIUM 100 MG/10 ML VIAL IV ONE (19:42)
[2016-08-20] MEDS ORDERED: ONDANSETRON 4 MG/2 ML VIAL ONE (19:42)
--- NOTE | 2016-08-20 19:52 | Operative Note ---
Date of procedure: 08/20/16 Pre-op diagnosis: Open abdomen with parastomal hernia Post-op diagnosis: same Procedure: Preoperative diagnosis Open abdomen with parastomal hernia Postoperative diagnosis Same Procedures performed 1. Reopening of recent laparotomy with second look laparotomy 2. Parastomal hernia repair with mesh 22 modifier Findings The small bowel all appeared viable and there is no evidence of obstruction or necrotic bowel. A retrorectus parastomal hernia repair with mesh was performed with a keyhole piece of 10 x 16 cm Strattice mesh. The fascia anteriorly and posteriorly was closed primarily around the mesh. The ostomy was patent after the repair was finished. Because of the intense adhesions in the large parastomal hernia this case took more than twice usual length of time. Complications None apparent Specimen None Anesthesia General endotracheal Blood loss Minimal Indications Open abdomen with large parastomal hernia Description of procedure The patient was taken to the operating room and transferred to the operating table in the supine position. Pressure points were padded and SCDs were hooked up to the pump in her artery present. The abdomen was prepped with Betadine and draped sterilely and the wound VAC was removed. Timeout was called. The abdomen was washed out copiously. A large parastomal hernia was seen consistent with a prior exploration. The bowel appeared viable and there is no evidence of necrotic bowel or need for resection of small bowel. The adhesions of a parastomal hernia were taken down. The retrorectus plane was developed and the anterior fascia was also dissected away from the rectus muscle around the stoma site. This took an extensive amount of time because of the patient's adhesions and the large size of the parastomal hernia and this took more than twice usual length of time because of this. The anterior fascia was closed with #1 PDS sutures. The retrorectus plane was then developed and a piece of 10 x 16 cm Strattice mesh was brought into the field. A keyhole was cut in the center of the mesh around the ostomy and the mesh was sewn in place with trans- fascial fixation using Monocryl sutures. 4 skin incisions were made spaced out along the course of the mesh using an 11 blade scalpel and the Monocryl sutures were parachuted through the trans-fascial fixation through the mesh and then back up through the fascia through these incisions. The 2 fixation locations medially were developed by creating a skin flap between the fascia and the skin incision and these 2 fixation locations were performed with transvaginal fixation using Monocryl sutures as well. These fixation sutures were all tied down. The mesh was under appropriate physiologic tension and covered the hernia well. The posterior fascia was then closed over the mesh after the tails of the mesh were reapproximated to close the mesh around the parastomal hernia defect. The posterior fascia and peritoneum was closed with #1 running PDS suture. The midline fascia was then closed with #1 non-looped PDS sutures and interrupted internal retention sutures using #1 Vicryl were placed intermittently throughout the fascia to prevent dehiscence postoperatively. The skin incisions were irrigated and closed with skin clips and the trans- fascial fixation locations were closed with skin glue. The ostomy was then evaluated and it was patent. The patient was transferred back to the ICU and left intubated. Post-operative plan wean ventilator Implants: 10 x 16cm strattice mesh Anesthesia: JOLENE Surgeon / Physician: Nabeel Smalls Estimated blood loss: minimal Specimens: none sent Condition: stable Disposition: ICU Results - Labs CBC & BMP: 08/20/16 04:52 08/20/16 04:52 Discharge Plan - Discharge Medications No Action Gabapentin Cap/Tab [Neurontin Cap/Tab] 300 mg PO TID Clopidogrel [Plavix] 75 mg PO DAILY Aspirin [Ecotrin] 325 mg PO DAILY Simvastatin [Zocor] 40 mg PO DAILY tablet Tamsulosin [Flomax] 0.4 mg PO DAILY capsule Montelukast Tab [Singulair Tab] 10 mg PO DAILY Ranitidine Tab [Zantac Tab] 150 mg PO BID Levothyroxine Tab [Synthroid Tab] 50 mcg PO DAILY Acetaminophen Tab [Tylenol Tab] 650 mg PO Q6H PRN #0 tablet PRN Reason: Pain Mild (1-3) And/Or Fever - Follow Up or Referral - Forms/Instructions
--- NOTE | 2016-08-20 22:01 | Operative Note ---
Date of procedure: 08/20/16 Pre-op diagnosis: Inadequate venous access with hypotension Post-op diagnosis: same Procedure: Preoperative diagnosis Hypotension with inadequate venous access Postoperative diagnosis Same Procedures performed Right internal jugular central line placement Ultrasound guidance and interpretation of images Findings The right internal jugular vein was compressible and was accessed on first stick with venous nonpulsatile blood return. Wire placement was confirmed with ultrasound and the vein was accessed under ultrasound guidance. The catheter was placed at 15 centimeters at the skin level. Complications None apparent Specimen None Anesthesia Local 10 cc lidocaine Indication Hypotension with inadequate venous access Description of procedure The patient was placed in supine position in his ICU bed. The neck was prepped with chlorhexidine and draped sterilely. Timeout was called. Ultrasound was used to identify the vascular structures in the right neck. The jugular vein is compressible. Local anesthetic was administered under ultrasound guidance. The vein was accessed with a needle on the first attempt under ultrasound guidance. Venous nonpulsatile blood return was obtained. A wire was passed easily into the venous system and placement was confirmed again with ultrasound. A skin incision was made alongside the wire and the dilator was placed over the wire. Seldinger technique was used to place a triple-lumen catheter and it was threaded over the wire up to 15 centimeters at the skin. The catheter was sewn in place at this location. All 3 lm returned blood easily and were flushed with saline. The catheter was sewn in place with 3-0 silk sutures in a Biopatch sterile dressing was placed with Tegaderm. Postoperative plan Chest x-ray Implants: central line Anesthesia: local Surgeon / Physician: Nabeel Smalls Estimated blood loss: minimal Specimens: none sent Condition: critical Disposition: ICU Results - Labs CBC & BMP: 08/20/16 04:52 08/20/16 04:52 Discharge Plan - Discharge Medications No Action Gabapentin Cap/Tab [Neurontin Cap/Tab] 300 mg PO TID Clopidogrel [Plavix] 75 mg PO DAILY Aspirin [Ecotrin] 325 mg PO DAILY Simvastatin [Zocor] 40 mg PO DAILY tablet Tamsulosin [Flomax] 0.4 mg PO DAILY capsule Montelukast Tab [Singulair Tab] 10 mg PO DAILY Ranitidine Tab [Zantac Tab] 150 mg PO BID Levothyroxine Tab [Synthroid Tab] 50 mcg PO DAILY Acetaminophen Tab [Tylenol Tab] 650 mg PO Q6H PRN #0 tablet PRN Reason: Pain Mild (1-3) And/Or Fever - Follow Up or Referral - Forms/Instructions
[2016-08-20] MEDS ORDERED: ALBUMIN 5% 25 GM in PREMIX 1 EACH IV SCH (23:45)
[2016-08-21] MEDS ORDERED: LACTATED RINGERS 1,000 ML IV ONE
[2016-08-21] MEDS ORDERED: ALBUMIN 5% 12.5 GM in PREMIX 2 EACH IV ONE (00:03)
[2016-08-21] MEDS ORDERED: ALBUMIN 5% 12.5 GM/250 ML VIAL IV ONE (00:08)
[2016-08-21 00:17] LABS: ABG Base Excess 0.3 MMOL/L (-2.5-2.5); ABG HCO3 24.3 MMOL/L (20-26); ABG Oxygen Saturation 98.7 % (95-100); ABG PCO2 36.5 MM HG (35-48); ABG PH 7.441 (7.35-7.45); ABG PO2 209.9 MM HG (80-95); ABG TCO2 25.4 MMOL/L (23-27); Allen Test Positive; Pt O2 Delivery Device Ventilator
[2016-08-21 00:20] LABS: Basophils % 0.1 % (0.0-0.8); Eosinophils % 0.2 % (0.00-10.9); Hematocrit 28.9 VOL% (42.0-52.0); Hemoglobin 9.3 GM/DL (14.0-18.0); Immature Granulocytes % 0.4 %; Immature Granulocytes Absolute 0.04 #; Lymphocytes # 0.6 10*3/uL (1.4-4.0); Lymphocytes % 5.8 % (21.2-54.2); Mean Corpuscular HGB Conc 32.2 GM/DL (32-36); Mean Corpuscular Hemoglobin 29 PG (27-34); Mean Corpuscular Volume 88.7 FL (87-102); Mean Platelet Volume 9.2 FL (9.6-12.0); Monocytes # 0.7 10*3/uL (0.11-0.8); Neutrophils # 8.9 10*3/uL (1.4-7.4); Neutrophils % 86.5 % (38.7-73.9); Platelet Count 196 T/CUMM (130-400); Red Blood Count 3.26 MC/CUMM (3.8-5.5); Red Cell Distribution Width 14.1 % (9.3-17.3); White Blood Count 10.3 T/CUMM (4-12)
[2016-08-21] MEDS: ONDANSETRON 4 MG/2 ML VIAL IV PRN ×3 (00:24→16:29)
[2016-08-21 00:42] LABS: Band Neutrophils 4 % (0-10); Lymphocytes 5 % (20-55); Segmented Neutrophils 87 % (50-85); Total Cells Counted 100
[2016-08-21 00:43] LABS: Calcium 7.2 MG/DL (8.5-10.1); Hypochromasia Slight; Magnesium 1.6 MG/DL (1.8-2.4); Osmolality,Calculated 285.8 MOS/KG (273-304); Platelet Estimate Adequate; Potassium 3.9 MMOL/L (3.5-5.1)
[2016-08-21] MEDS: HYDROmorphone 2 MG/1 ML VIAL IV PRN ×3 (00:59→10:47)
[2016-08-21] MEDS: PIPERACILLIN/TAZOBACTAM 3,375 MG in SODIUM CHLORIDE 0.9% 100 ML IV SCH ×4 (01:05→23:52)
[2016-08-21 04:10] LABS: ABG Base Excess -0.8 MMOL/L (-2.5-2.5); ABG HCO3 24.7 MMOL/L (20-26); ABG Oxygen Saturation 98.8 % (95-100); ABG PCO2 44.5 MM HG (35-48); ABG PH 7.362 (7.35-7.45); ABG PO2 209.2 MM HG (80-95); ABG TCO2 26.1 MMOL/L (23-27); Allen Test Positive; Pt O2 Delivery Device Ventilator
[2016-08-21] MEDS: LACTATED RINGERS 1,000 ML IV SCH ×3 (04:30→23:52)
[2016-08-21] MEDS ORDERED: MAGNESIUM SULF RIDER 4 GM in PREMIX 1 EACH IV PRN (05:23)
[2016-08-21] MEDS ORDERED: MAGNESIUM SULF RIDER 2 GM in PREMIX 1 EACH IV PRN (05:23)
[2016-08-21 05:39] LABS: Basophils % 0.1 % (0.0-0.8); Eosinophils % 0.1 % (0.00-10.9); Hematocrit 26.4 VOL% (42.0-52.0); Hemoglobin 8.3 GM/DL (14.0-18.0); Immature Granulocytes % 0.6 %; Immature Granulocytes Absolute 0.05 #; Lymphocytes # 0.6 10*3/uL (1.4-4.0); Mean Corpuscular HGB Conc 31.4 GM/DL (32-36); Mean Corpuscular Hemoglobin 28 PG (27-34); Mean Corpuscular Volume 90.1 FL (87-102); Mean Platelet Volume 9.5 FL (9.6-12.0); Monocytes # 0.5 10*3/uL (0.11-0.8); Monocytes % 6.4 % (1.7-12.7); Neutrophils # 6.7 10*3/uL (1.4-7.4); Neutrophils % 84.8 % (38.7-73.9); Platelet Count 180 T/CUMM (130-400); Red Blood Count 2.93 MC/CUMM (3.8-5.5); Red Cell Distribution Width 14.2 % (9.3-17.3); White Blood Count 7.9 T/CUMM (4-12)
[2016-08-21 06:09] LABS: Calcium 6.9 MG/DL (8.5-10.1); Magnesium 1.7 MG/DL (1.8-2.4); Osmolality,Calculated 282.1 MOS/KG (273-304); Potassium 3.9 MMOL/L (3.5-5.1)
[2016-08-21 06:12] LABS: Band Neutrophils 17 % (0-10); Lymphocytes 5 % (20-55); Segmented Neutrophils 73 % (50-85); Total Cells Counted 100
[2016-08-21 06:13] LABS: Hypochromasia Slight; Platelet Estimate Adequate; Polychromasia Slight
[2016-08-21] MEDS: LEVOTHYROXINE 50 MCG TABLET PO SCH (06:58)
--- NOTE | 2016-08-21 07:28 | XRay Report ---
Exam: XR chest 1V portable Indication: Intubated, ventilator Comparison study: 08/21/2016 radiograph Findings: Endotracheal tube and esophagogastric tube are in similar positions. Right-sided central venous catheter is also essentially stable from prior. There are patchy perihilar and basilar interstitial opacities with layering opacities on the left lung base, which are slightly increased from prior. There is no pneumothorax. Cardiac silhouette and mediastinal contours appear similar to prior. Impression: Stable position of support tubes and lines. Slight worsening of perihilar and basilar opacities may represent atelectasis and developing small left pleural effusion. PROCEDURE INTERPRETED AT [facility] DEPARTMENT OF RADIOLOGY Final Report Signed by: Raulito Flor
--- NOTE | 2016-08-21 07:38 | XRay Report ---
Exam: XR chest 1V portable Indication: Intubated, ventilator Comparison study: 08/20/2016 Findings: Endotracheal tube, esophagogastric tube and right-sided central line are in similar positions. Minimal perihilar and left basilar interstitial opacities are not significantly changed from prior. There is no focal consolidation, pneumothorax or pleural effusion. Impression: Stable position of support tubes and lines. No significant change. PROCEDURE INTERPRETED AT [facility] DEPARTMENT OF RADIOLOGY Final Report Signed by: Raulito Flor
--- NOTE | 2016-08-21 07:49 | Pulmonology Progress Note ---
Pulmonary - PN: Subj Interval history: Patient is a 70-year-old white man that presented with an acute abdomen with nausea and vomiting and had an incarcerated ventral hernia. His first operation was a couple nights ago. He was stable on the ventilator and had a relook operation yesterday evening. He has had his abdominal wound closed. He is relatively comfortable on the ventilator and is alert. He has required boluses of fluid to maintain his blood pressure but otherwise he is doing okay. Overall he looks reasonably stable this morning. Exam (Progress Note) - Constitutional Vitals: Period Temp Pulse Resp BP Sys/Butler Pulse Ox Last 24 Hr 97.5 F-99.8 F 71-113 8-22 63-132/44-74 94-100 Exam: General appearance: normal weight, no acute distress (Patient is alert on the ventilator. He is comfortable and responds easily.) - Head Head exam: Present: normal inspection, normocephalic - Eye Eye exam: Present: EOMI. Absent: scleral icterus Pupils: Present: PATRICIO - ENT ENT exam: Present: normal exam, other (ET tube is in good position) - Neck Neck exam: Present: normal inspection. Absent: lymphadenopathy, thyromegaly - Respiratory Respiratory exam: Present: clear to auscultation bilaterally. He does not have any rales or wheezing. - Cardiovascular Cardiovascular exam: Present: regular rate and rhythm. Absent: gallop, systolic murmur - GI/Abdominal GI/Abdominal exam: Present: soft, other (Abdomen is soft and the wound looks okay. ) - Extremities Exam Extremities exam: Absent: calf tenderness, edema, he moves his extremities okay. - Neurological Exam Neurological exam: Present: alert - Psychiatric Psychiatric exam: Present: normal affect - Skin Skin exam: Present: warm, dry Results - Labs CBC & BMP: 08/21/16 05:00 08/21/16 05:00 Labs: His PO2 is 209 with a PCO2 of 44 and a pH of 7.36 - Diagnostic Findings Procedure: Chest x-ray: image reviewed by me, report reviewed by me (Chest x- ray is rotated but looks okay) Assessment and Plan (1) Hypotension Status: Acute Assessment and plan: The patient is on the ventilator postop and does have some hypotension. He is probably on the dry side. He will continue with fluid resuscitation. His blood pressure looks better today. Current Visit: Yes (2) On mechanically assisted ventilation Status: Acute Assessment and plan: Patient is stable on the ventilator and is doing fairly well postop. Will see how he does on CPAP. Current Visit: No (3) Coronary artery disease Status: Chronic Assessment and plan: The patient has had stents done in the recent past. Current Visit: No (4) Pancreatic cancer Status: Chronic Assessment and plan: The patient apparently had a Whipple procedure several years ago. Current Visit: No (5) Incarcerated hernia of abdominal cavity Status: Acute Assessment and plan: Patient comes in with an incarcerated ventral hernia is now postop. He had his abdomen closed yesterday and is doing fairly well. Current Visit: Yes (6) Acute abdomen Status: Acute Assessment and plan: Patient came in with nausea vomiting and acute abdomen and is now postop. So far is stable postop. Current Visit: Yes
--- NOTE | 2016-08-21 07:55 | XRay Report ---
Exam: XR chest 1V portable Date: 08/20/2016 9:54 PM Indication: Status post central line placement Comparison: 08/20/2016 3:28 AM Technical: AP portable Findings: Right IJ catheter has been placed. External cardiac leads are present. Nasogastric tube and endotracheal tube are present. ASVD is present. Basilar atelectatic change present. Skin fold is present over the right chest no obvious pneumothorax present. Mild cardiac enlargement. Impression: 1. Interval placement right IJ catheter with stable appearance of the endotracheal tube and nasogastric tube 2. No pneumothorax 3. Minimal basilar atelectatic change bilaterally PROCEDURE INTERPRETED AT [facility] DEPARTMENT OF RADIOLOGY Final Report Signed by: Dr. Tylor Summers
[2016-08-21] MEDS: ASPIRIN CHEW 81 MG TABLET PO SCH (08:52)
[2016-08-21] MEDS: TAMSULOSIN 0.4 MG CAPSULE PO SCH (08:52)
[2016-08-21] MEDS: GABAPENTIN 300 MG CAPSULE PO SCH ×3 (08:52→21:00)
[2016-08-21] MEDS: MONTELUKAST 10 MG TABLET PO SCH (08:53)
[2016-08-21] MEDS: CLOPIDOGREL 75 MG TABLET PO SCH (08:53)
[2016-08-21] MEDS: SIMVASTATIN 40 MG TABLET PO SCH (08:53)
[2016-08-21] MEDS: PANTOPRAZOLE 40 MG VIAL IV SCH (08:54)
[2016-08-21 09:14] LABS: Allen Test Positive; Pt O2 Delivery Device Ventilator
[2016-08-21 09:15] LABS: ABG Base Excess -0.3 MMOL/L (-2.5-2.5); ABG HCO3 24.2 MMOL/L (20-26); ABG Oxygen Saturation 99.7 % (95-100); ABG PCO2 38.1 MM HG (35-48); ABG PH 7.409 (7.35-7.45); ABG TCO2 21.8 MMOL/L (23-27)
--- NOTE | 2016-08-21 09:45 | Cardiology Progress Note ---
Assessment and Plan - Time spent with patient Time spent with patient: Greater than 30 minutes (1) CAD (coronary artery disease) Status: Chronic Assessment and plan: SEE PLAN OF CARE LISTED BELOW Current Visit: Yes Qualifiers: Coronary Disease-Associated Artery/Lesion type: [place] artery [place] vs. transplanted heart: augustine heart Associated angina: without angina Qualified Code(s): I25.10 - Atherosclerotic heart disease of augustine coronary artery without angina pectoris (2) History of colostomy Status: Chronic Assessment and plan: SEE PLAN OF CARE LISTED BELOW Current Visit: Yes (3) Hypercholesterolemia Status: Chronic Assessment and plan: SEE PLAN OF CARE LISTED BELOW Current Visit: Yes (4) Anemia Status: Acute Assessment and plan: SEE PLAN OF CARE LISTED BELOW Current Visit: Yes (5) Incarcerated hernia of abdominal cavity Status: Acute Assessment and plan: SEE PLAN OF CARE LISTED BELOW Current Visit: Yes (6) Stented coronary artery Status: Chronic Assessment and plan: SEE PLAN OF CARE LISTED BELOW Current Visit: Yes Cardiology - PN: Subj Interval history: 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 BALDERAS SUMMARY: Mr. Willams, 70WM, with a known history of coronary artery disease, dyslipidemia. April 13, 2016 underwent proximal LAD (2 Emery), mid LAD (2 Emery), distal LAD (1 ARON). Admitted August 19, 2016 with abdominal pain. Was found to have an incarcerated hernia related to his colostomy. He urgently underwent exploratory laparotomy and reduction of parastomal hernia. In a staged fashion , returned to the OR the following day for reexploration with second look laparotomy. He has been maintained on the ventilator in ICU, slowly improving. AUGUST 21, 2016: This morning, patient is improving. He did require several fluid boluses for hypotension during the night. This has improved as well. He is being maintained in the ventilator but awake, alert and cooperative. No arrhythmia overnight. He is anemic but expected, appears to be stable. Magnesium is low and will verify that he is on magnesium replacement protocol. He is being maintained on aspirin, Plavix, lipid-lowering agent. When able, will introduce beta blockers and/or VITALIY inhibitor as needed. Will further discuss with Dr. Carrero and await additional recommendations. ASSESSMENT/PLAN: 1. INCARCERATED HERNIA REPAIR - status post repair. Stable 2. COLOSTOMY - pink stoma. Continue current plan of care 3. CAD WITH RECENT PCI -April 2016 required multiple PCI to the LAD with a total of 5 drug-eluting stents. Continue Aspirin/Plavix. 4. DYSLIPIDEMIA - continue lipid-lowering agent. Fasting lipid profile in the morning. 5. ANEMIA - seems to be stable. Expected postoperatively. Exam (Progress Note) - Constitutional Vitals: Period Temp Pulse Resp BP Sys/Butler Pulse Ox Last 24 Hr 97.5 F-99.8 F 71-113 8-22 63-132/44-74 94-100 Exam: General: [Appears well with no apparent distress.] [Pleasant and cooperative. ] [Appears comfortable.] HEENT: [Normocephalic, atraumatic. Mucous membranes moist. No jaundice noted. Conjunctiva moist and clear, sclerae anicteric] Neck: No JVD/HJR, no thyromegaly or lymphadenopathy noted. No carotid bruit appreciated Cardiac: [Regular rate and rhythm.] [No obvious murmur, rub or gallop.] Lungs: [Course sounds throughout. Symmetrical chest wall movements noted. Ventilator in use. Abdomen: Hypoactive colostomy intact, pink stoma. Dressing dry and intact mid abdomen. Musculoskeletal: No fluid collection. Decreased range of motion is noted. Extremities: No clubbing, cyanosis noted. [ No edema noted.] Upper extremity pulses 2+. Lower extremity pulses 2+. Capillary refill less than 3 seconds. Skin: No unusual lesions or rashes. No skin breakdown appreciated. Neuro: Awake, alert and oriented 3. Moves all extremities well without hemiparesis or paralysis. No essential tremor is appreciated. Result/EKG - Labs CBC & BMP: 08/21/16 05:00 08/21/16 05:00 Lab Results: I have reviewed the past 24 hour labs Labs: Laboratory Results - last 24 hr 08/21/16 08/21/16 08/21/16 00:13 00:15 00:15 WBC 10.3 D RBC 3.26 L Hgb 9.3 L D Hct 28.9 L MCV 88.7 MCH 29 MCHC 32.2 RDW 14.1 Plt Count 196 D MPV 9.2 L Neut % (Auto) 86.5 H Lymph % (Auto) 5.8 L [place] % (Auto) 7.0 Eos % (Auto) 0.2 Baso % (Auto) 0.1 Neut # (Auto) 8.9 H Lymph # (Auto) 0.6 L [place] # (Auto) 0.7 Eos # (Auto) 0.0 Baso # (Auto) 0.0 Total Counted 100 Immature Gran % 0.4 Nucleated RBC % 0.0 Immature Gran # 0.04 Segmented Neutrophils 87 H Band Neutrophils 4 Lymphocytes 5 L Monocytes 4 Nucleated RBCs # 0.00 Platelet Estimate Adequate Polychromasia Hypochromasia Slight ABG pH 7.441 ABG pCO2 36.5 ABG pO2 209.9 H ABG HCO3 24.3 ABG Total CO2 25.4 ABG O2 Saturation 98.7 ABG Base Excess 0.3 FiO2 50.00 Sodium 144 Potassium 3.9 Chloride 108 H Carbon Dioxide 26 Anion Gap 13.9 BUN 12 Creatinine 0.80 GFR Calculation 99 BUN/Creatinine Ratio 15.00 Glucose 106 Calculated Osmolality 285.8 Calcium 7.2 L Magnesium 1.6 L 08/21/16 08/21/16 08/21/16 03:59 05:00 05:00 WBC 7.9 RBC 2.93 L Hgb 8.3 L Hct 26.4 L MCV 90.1 MCH 28 MCHC 31.4 L RDW 14.2 Plt Count 180 MPV 9.5 L Neut % (Auto) 84.8 H Lymph % (Auto) 8.0 L [place] % (Auto) 6.4 Eos % (Auto) 0.1 Baso % (Auto) 0.1 Neut # (Auto) 6.7 Lymph # (Auto) 0.6 L [place] # (Auto) 0.5 Eos # (Auto) 0.0 Baso # (Auto) 0.0 Total Counted 100 Immature Gran % 0.6 Nucleated RBC % 0.0 Immature Gran # 0.05 Segmented Neutrophils 73 Band Neutrophils 17 H Lymphocytes 5 L Monocytes 5 Nucleated RBCs # 0.00 Platelet Estimate Adequate Polychromasia Slight Hypochromasia Slight ABG pH 7.362 ABG pCO2 44.5 ABG pO2 209.2 H ABG HCO3 24.7 ABG Total CO2 26.1 ABG O2 Saturation 98.8 ABG Base Excess -0.8 FiO2 50.00 Sodium 142 Potassium 3.9 Chloride 108 H Carbon Dioxide 27 Anion Gap 10.9 BUN 12 Creatinine 0.70 GFR Calculation 105 BUN/Creatinine Ratio 17.00 Glucose 100 Calculated Osmolality 282.1 Calcium 6.9 L Magnesium 1.7 L 08/21/16 09:05 WBC RBC Hgb Hct MCV MCH MCHC RDW Plt Count MPV Neut % (Auto) Lymph % (Auto) [place] % (Auto) Eos % (Auto) Baso % (Auto) Neut # (Auto) Lymph # (Auto) [place] # (Auto) Eos # (Auto) Baso # (Auto) Total Counted Immature Gran % Nucleated RBC % Immature Gran # Segmented Neutrophils Band Neutrophils Lymphocytes Monocytes Nucleated RBCs # Platelet Estimate Polychromasia Hypochromasia ABG pH 7.409 ABG pCO2 38.1 ABG pO2 171.0 H ABG HCO3 24.2 ABG Total CO2 21.8 L ABG O2 Saturation 99.7 ABG Base Excess -0.3 FiO2 40.00 Sodium Potassium Chloride Carbon Dioxide Anion Gap BUN Creatinine GFR Calculation BUN/Creatinine Ratio Glucose Calculated Osmolality Calcium Magnesium - Diagnostic Findings Procedure: Chest x-ray: report reviewed by me - EKG EKG results: interpreted by me EKG shows: sinus rhythm Quality Measures - VTE Contraindication to Pharmacological VTE Prophylaxis: High Risk of Bleeding
--- NOTE | 2016-08-21 11:30 | EKG Report ---
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
[2016-08-21] MEDS: PHENYLEPHRINE DRIP 40 MG/250 ML PREMIX IV SCH (13:46)
[2016-08-21] MEDS ORDERED: NALOXONE 0.4 MG/ML VIAL IV PRN (13:47)
[2016-08-21] MEDS: HYDROmorphone PCA 30 MG/30 ML SYRINGE IV SCH (14:03)
[2016-08-21] MEDS ORDERED: ALBUMIN 5% 50 GM in PREMIX 1 EACH IV ONE (14:59)
[2016-08-21 15:13] LABS: Hematocrit 27.4 VOL% (42.0-52.0); Hemoglobin 8.9 GM/DL (14.0-18.0)
[2016-08-21] MEDS: ENOXAPARIN 40 MG/0.4 ML SYRINGE SUBCUT SCH (16:35)
[2016-08-21] MEDS ORDERED: ALPRAZolam 0.5 MG TABLET PO PRN (17:10)
[2016-08-21] MEDS ORDERED: diphenhydrAMINE 50 MG/1 ML VIAL IV ONE (18:15)
[2016-08-21] MEDS ORDERED: diphenhydrAMINE 50 MG/1 ML VIAL ONE (18:15)
[2016-08-21] MEDS ORDERED: ACETAMINOPHEN 325 MG TABLET PO ONE (18:59)
--- NOTE | 2016-08-21 19:15 | XRay Report ---
Portable chest. Indication: Shortness of breath. Comparison: Earlier today. The heart is enlarged with left ventricular hypertrophy. There is infiltrate and pleural effusion at the left lung base, stable. The pulmonary vasculature is prominent. The right lung is essentially clear. IJ line is in satisfactory position. Endotracheal tube and nasogastric tube have been removed. Impression: No significant interval change in the appearance of the lung [place]. Cardiomegaly and venous congestion. Left basilar infiltrate and pleural effusion. PROCEDURE INTERPRETED AT [facility] DEPARTMENT OF RADIOLOGY Final Report Signed by: Dr. Qing Brewster
--- NOTE | 2016-08-21 19:34 | Event Note ---
General Surgery Progress Note Chief complaint This patient is a 71-year-old man admitted with a parastomal hernia that was incarcerated resulting in strangulated small bowel treated with reduction of parastomal hernia through exploratory laparotomy with delayed closure of abdomen and pelvis hernia repair on 08/20/2016 Interval history The patient was extubated this morning. He is still requiring IV fluid resuscitation. His hemoglobin is stabilized. His ostomy is starting to produce some. Labs are acceptable. Urine output is adequate. Physical exam The patient is afebrile with normal heart rate. His blood pressure is stabilizing some this morning with IV fluid resuscitation. He wakes up and follows commands. AVEL drain is serosanguineous. Labs Reviewed Imaging Chest x-ray reviewed Assessment and plan Continue n.p.o. for today Continue IV fluids as needed Continue to trend hemoglobin Monitor drain output
[2016-08-22] MEDS: PIPERACILLIN/TAZOBACTAM 3,375 MG in SODIUM CHLORIDE 0.9% 100 ML IV SCH ×4 (02:34→23:34)
[2016-08-22 04:13] LABS: Basophils % 0.3 % (0.0-0.8); Eosinophils # 0.2 10*3/uL (0.0-0.87); Eosinophils % 2.5 % (0.00-10.9); Hematocrit 25.8 VOL% (42.0-52.0); Hemoglobin 8.3 GM/DL (14.0-18.0); Immature Granulocytes % 0.5 %; Immature Granulocytes Absolute 0.04 #; Lymphocytes # 0.6 10*3/uL (1.4-4.0); Lymphocytes % 7.3 % (21.2-54.2); Mean Corpuscular HGB Conc 32.2 GM/DL (32-36); Mean Corpuscular Hemoglobin 29 PG (27-34); Mean Corpuscular Volume 89.3 FL (87-102); Mean Platelet Volume 9.6 FL (9.6-12.0); Monocytes # 0.5 10*3/uL (0.11-0.8); Neutrophils # 7.4 10*3/uL (1.4-7.4); Neutrophils % 83.4 % (38.7-73.9); Platelet Count 169 T/CUMM (130-400); Red Blood Count 2.89 MC/CUMM (3.8-5.5); Red Cell Distribution Width 13.8 % (9.3-17.3); White Blood Count 8.8 T/CUMM (4-12)
[2016-08-22 04:39] LABS: Calcium 7.4 MG/DL (8.5-10.1); Potassium 3.7 MMOL/L (3.5-5.1)
[2016-08-22 04:45] LABS: Cholesterol 61 MG/DL (50-200); HDL Cholesterol < 10 MG/DL (40-60); Triglycerides 149 MG/DL (2-150); VLDL CHOLESTEROL 29.8 MG/DL
[2016-08-22] MEDS: LACTATED RINGERS 1,000 ML IV SCH ×3 (06:38→23:36)
[2016-08-22] MEDS: LEVOTHYROXINE 50 MCG TABLET PO SCH (06:42)
--- NOTE | 2016-08-22 07:28 | Event Note ---
General Surgery Progress Note Chief complaint This patient is a 71-year-old man admitted with a parastomal hernia that was incarcerated resulting in strangulated small bowel treated with reduction of parastomal hernia through exploratory laparotomy with delayed closure of abdomen and pelvis hernia repair on 08/20/2016 Interval history The patient was extubated yesterday and his NG tube has been removed. His ostomy is working well. He feels hungry. His pain is well controlled. He had a reaction to albumin infusion yesterday and this was stopped and has since resolved. His hemoglobin is relatively stable and he has not been transfused. He is not complaining of any chest pain. He has not been out of bed. His urine output is adequate. His labs today are otherwise unremarkable. Physical exam The patient is afebrile with normal vital signs His chest is clear His heart is regular His abdomen is soft and appropriately tender with normal bowel sounds. No evidence of parastomal hernia. Ostomy is functioning well. Midline incision is clean with no evidence of infection. Labs Reviewed Imaging None Assessment and plan Full liquid diet today Transfer to floor Physical therapy Continue AVEL drain Increase activity Start Toradol for assisted pain control
[2016-08-22] MEDS: KETOROLAC 15 MG/1 ML VIAL IV SCH ×3 (07:48→20:47)
--- NOTE | 2016-08-22 08:09 | Pulmonology Progress Note ---
Pulmonary - PN: Subj Interval history: Patient is a 70-year-old white man that presented with an acute abdomen with nausea and vomiting and had an incarcerated ventral hernia. His first operation was a couple nights ago. He was stable on the ventilator and had a relook operation yesterday evening. He has had his abdominal wound closed. He did well yesterday and was able to be extubated. Today he says he is feeling okay but is very sore. He is not able to cough very well. He denies being short of breath however. His blood pressure and heart rate are little more stable. He will be transferred to the floor today. Exam (Progress Note) - Constitutional Vitals: Period Temp Pulse Resp BP Sys/Butler Pulse Ox Last 24 Hr 97.9 F-99.0 F 88-119 12-22 90-139/48-74 91-100 Exam: General appearance: normal weight, no acute distress (Patient is alert and talking and looks comfortable.) - Head Head exam: Present: normal inspection, normocephalic - Eye Eye exam: Present: EOMI. Absent: scleral icterus Pupils: Present: PATRICIO - ENT ENT exam: Present: normal exam - Neck Neck exam: Present: normal inspection. Absent: lymphadenopathy, thyromegaly - Respiratory Respiratory exam: Present: clear to auscultation bilaterally. He is moving air well without any wheezing. - Cardiovascular Cardiovascular exam: Present: regular rate and rhythm. Absent: gallop, systolic murmur - GI/Abdominal GI/Abdominal exam: Present: soft, other (Abdomen is soft and the wound looks okay. ) - Extremities Exam Extremities exam: Absent: calf tenderness, edema, he moves his extremities okay. - Neurological Exam Neurological exam: Present: alert, he is moving everything well without any weakness. - Psychiatric Psychiatric exam: Present: normal affect - Skin Skin exam: Present: warm, dry Results - Labs CBC & BMP: 08/22/16 03:45 08/22/16 03:45 - Diagnostic Findings Procedure: Chest x-ray: image reviewed by me, report reviewed by me (Chest x- ray shows some minimal atelectasis in the bases.) Assessment and Plan (1) Hypotension Status: Acute Assessment and plan: The patient is doing much better and his blood pressure and heart rate are stable. His volume status looks better. Current Visit: Yes (2) On mechanically assisted ventilation Status: Resolved Assessment and plan: Patient came off the ventilator easily yesterday and is doing well with his breathing. He will continue with respiratory therapy. Current Visit: No (3) Pancreatic cancer Status: Chronic Assessment and plan: The patient apparently had a Whipple procedure several years ago. Current Visit: No (4) Incarcerated hernia of abdominal cavity Status: Acute Assessment and plan: Patient comes in with an incarcerated ventral hernia is now postop. He is still very sore but his abdomen is doing better. Current Visit: Yes (5) Acute abdomen Status: Acute Assessment and plan: Patient came in with nausea vomiting and acute abdomen and is now postop. So far is stable postop. He will transfer to a regular room today. Current Visit: Yes
[2016-08-22] MEDS: CLOPIDOGREL 75 MG TABLET PO SCH (09:08)
[2016-08-22] MEDS: SIMVASTATIN 40 MG TABLET PO SCH (09:09)
[2016-08-22] MEDS: TAMSULOSIN 0.4 MG CAPSULE PO SCH (09:10)
[2016-08-22] MEDS: GABAPENTIN 300 MG CAPSULE PO SCH ×3 (09:10→20:48)
[2016-08-22] MEDS: ASPIRIN CHEW 81 MG TABLET PO SCH (09:11)
[2016-08-22] MEDS: MONTELUKAST 10 MG TABLET PO SCH (09:11)
[2016-08-22] MEDS: PANTOPRAZOLE 40 MG VIAL IV SCH (09:12)
--- NOTE | 2016-08-22 09:12 | EKG Report ---
Stationary ECG Study 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
--- NOTE | 2016-08-22 09:26 | Cardiology Progress Note ---
<Aline Tai E - Last Filed: 08/22/16 09:17> Assessment and Plan - Time spent with patient Time spent with patient: Greater than 30 minutes (1) CAD (coronary artery disease) Status: Chronic Assessment and plan: SEE PLAN OF CARE LISTED BELOW Current Visit: Yes Qualifiers: Coronary Disease-Associated Artery/Lesion type: [place] artery [place] vs. transplanted heart: [place] heart Associated angina: without angina Qualified Code(s): I25.10 - Atherosclerotic heart disease of [place] coronary artery without angina pectoris (2) History of colostomy Status: Chronic Assessment and plan: SEE PLAN OF CARE LISTED BELOW Current Visit: Yes (3) Hypercholesterolemia Status: Chronic Assessment and plan: SEE PLAN OF CARE LISTED BELOW Current Visit: Yes (4) Anemia Status: Acute Assessment and plan: SEE PLAN OF CARE LISTED BELOW Current Visit: Yes (5) Incarcerated hernia of abdominal cavity Status: Acute Assessment and plan: SEE PLAN OF CARE LISTED BELOW Current Visit: Yes (6) Stented coronary artery Status: Chronic Assessment and plan: SEE PLAN OF CARE LISTED BELOW Current Visit: Yes (7) Murmur, cardiac Status: Chronic Assessment and plan: SEE PLAN OF CARE LISTED BELOW Current Visit: Yes Cardiology - PN: Subj Interval history: FURNACE STOCK INSPECTOR: DR. BALDERAS SUMMARY: Mr. Willams, 70WM, with a known history of coronary artery disease, dyslipidemia. April 13, 2016 underwent proximal LAD (2 Emery), mid LAD (2 Emery), distal LAD (1 ARON). Admitted August 19, 2016 with abdominal pain. Was found to have an incarcerated hernia related to his colostomy. He urgently underwent exploratory laparotomy and reduction of parastomal hernia. In a staged fashion , returned to the OR the following day for reexploration with second look laparotomy and found to have strangulated small bowel treated with reduction of parastomal hernia through exploratory laparotomy with delayed closure. AUGUST 21, 2016: This morning, patient is improving. He did require several fluid boluses for hypotension during the night. This has improved as well. He is being maintained in the ventilator but awake, alert and cooperative. No arrhythmia overnight. He is anemic but expected, appears to be stable. Magnesium is low and will verify that he is on magnesium replacement protocol. He is being maintained on aspirin, Plavix, lipid-lowering agent. When able, will introduce beta blockers and/or VITALIY inhibitor as needed. Will further discuss with Dr. Carrero and await additional recommendations. AUGUST 22, 2016: Extubated this morning, appears to be improving well. Apparently he had some hypotension which responded well to fluid bolus. At this point, he is not on pressors and blood pressure stable. Denies chest pain and appears to be breathing comfortably. Labs are stable. Of note, he did have a rash. In the lower chest upper abdominal area laterally during the night. Echocardiogram August 20, 2016: EF 60%, trivial AMS, PAP 30 mmHg ASSESSMENT/PLAN: 1. INCARCERATED HERNIA REPAIR - status post repair. Stable 2. COLOSTOMY - pink stoma. Continue current plan of care 3. CAD WITH RECENT PCI - April 2016 required multiple PCI to the LAD with a total of 5 drug-eluting stents. Continue Aspirin/Plavix. 4. DYSLIPIDEMIA - continue lipid-lowering agent. LDL 31. 5. ANEMIA - seems to be stable. Expected postoperatively. 6. CARDIAC MURMUR - benign per recent echo Exam (Progress Note) - Constitutional Vitals: Period Temp Pulse Resp BP Sys/Butler Pulse Ox Last 24 Hr 97.9 F-99.0 F 88-119 12-24 90-139/48-74 91-100 Exam: General: [Appears well with no apparent distress.] [Pleasant and cooperative. ] [Appears comfortable.] HEENT: [Normocephalic, atraumatic. Mucous membranes moist. No jaundice noted. Conjunctiva moist and clear, sclerae anicteric] Neck: No JVD/HJR, no thyromegaly or lymphadenopathy noted. No carotid bruit appreciated Cardiac: [Regular rate and rhythm.] [No obvious murmur, rub or gallop.] Lungs: [Lungs relatively clear. Symmetrical chest wall movements noted. Abdomen: Hypoactive colostomy intact, pink stoma. Dressing dry and intact mid abdomen. Musculoskeletal: No fluid collection. Decreased range of motion is noted. Extremities: No clubbing, cyanosis noted. [ No edema noted.] Upper extremity pulses 2+. Lower extremity pulses 2+. Capillary refill less than 3 seconds. Skin: Red, raised rash laterally across the upper abdomen. No skin breakdown appreciated. Neuro: Awake, alert and oriented 3. Moves all extremities well without hemiparesis or paralysis. No essential tremor is appreciated. Result/EKG - Labs CBC & BMP: 08/22/16 03:45 08/22/16 03:45 Lab Results: I have reviewed the past 24 hour labs Labs: Laboratory Results - last 24 hr 08/21/16 08/21/16 08/22/16 05:00 15:11 03:45 WBC 8.8 RBC 2.89 L Hgb 8.9 L 8.3 L Hct 27.4 L 25.8 L MCV 89.3 MCH 29 MCHC 32.2 RDW 13.8 Plt Count 169 MPV 9.6 Neut % (Auto) 83.4 H Lymph % (Auto) 7.3 L [place] % (Auto) 6.0 Eos % (Auto) 2.5 Baso % (Auto) 0.3 Neut # (Auto) 7.4 Lymph # (Auto) 0.6 L [place] # (Auto) 0.5 Eos # (Auto) 0.2 Baso # (Auto) 0.0 Immature Gran % 0.5 Nucleated RBC % 0.0 Immature Gran # 0.04 Nucleated RBCs # 0.00 Sodium Potassium Chloride Carbon Dioxide Anion Gap BUN Creatinine GFR Calculation BUN/Creatinine Ratio Glucose Calculated Osmolality Calcium Magnesium Triglycerides Cholesterol LDL Cholesterol VLDL Cholesterol HDL Cholesterol Heart Disease Risk Ratio Blood Type O POSITIVE Antibody Screen Negative 08/22/16 08/22/16 03:45 03:45 WBC RBC Hgb Hct MCV MCH MCHC RDW Plt Count MPV Neut % (Auto) Lymph % (Auto) [place] % (Auto) Eos % (Auto) Baso % (Auto) Neut # (Auto) Lymph # (Auto) [place] # (Auto) Eos # (Auto) Baso # (Auto) Immature Gran % Nucleated RBC % Immature Gran # Nucleated RBCs # Sodium 143 Potassium 3.7 Chloride 106 Carbon Dioxide 25 Anion Gap 15.7 H BUN 9 Creatinine 0.50 L GFR Calculation 121 BUN/Creatinine Ratio 18.00 Glucose 72 L Calculated Osmolality 282.0 Calcium 7.4 L Magnesium 2.0 Triglycerides 149 Cholesterol 61 LDL Cholesterol 31.0 VLDL Cholesterol 29.8 HDL Cholesterol < 10 L Heart Disease Risk Ratio 6.10 Blood Type Antibody Screen - EKG EKG results: interpreted by me EKG shows: sinus rhythm Quality Measures - VTE Contraindication to Pharmacological VTE Prophylaxis: High Risk of Bleeding <Petey Carrero - Last Filed: 08/22/16 13:05> Assessment and Plan (1) Stented coronary artery Status: Chronic Current Visit: Yes (2) History of colostomy Status: Chronic Current Visit: Yes (3) Coronary artery disease Status: Deleted Current Visit: Yes (4) Hypercholesterolemia Status: Chronic Current Visit: Yes Cardiology - PN: Subj Interval history: This is a 70-year-old man who has a history of coronary disease recent stenting in April 2016 with 5 stents in the LAD. He now has had surgery and has had repair of some obstruction and was able to maintain his Plavix without stopping it. He has been cardiac stable and our plan is to continue support and follow. He has no other specific issues currently. I have discussed in detail the particulars of this case and I have examined the patient and reviewed the patient's chart both current and old. I was directly involved in the patient's evaluation and management and I completely agree with Aline Tai NP regarding this patient's evaluation and treatment plan. Exam (Progress Note) - Constitutional Vitals: Period Temp Pulse Resp BP Sys/Butler Pulse Ox Last 24 Hr 97.9 F-99.0 F 87-119 10-30 92-139/48-74 90-99 Result/EKG - Labs CBC & BMP: 08/22/16 03:45 08/22/16 03:45 Labs: Laboratory Results - last 24 hr 08/21/16 08/21/16 08/22/16 05:00 15:11 03:45 WBC 8.8 RBC 2.89 L Hgb 8.9 L 8.3 L Hct 27.4 L 25.8 L MCV 89.3 MCH 29 MCHC 32.2 RDW 13.8 Plt Count 169 MPV 9.6 Neut % (Auto) 83.4 H Lymph % (Auto) 7.3 L [place] % (Auto) 6.0 Eos % (Auto) 2.5 Baso % (Auto) 0.3 Neut # (Auto) 7.4 Lymph # (Auto) 0.6 L [place] # (Auto) 0.5 Eos # (Auto) 0.2 Baso # (Auto) 0.0 Immature Gran % 0.5 Nucleated RBC % 0.0 Immature Gran # 0.04 Nucleated RBCs # 0.00 Sodium Potassium Chloride Carbon Dioxide Anion Gap BUN Creatinine GFR Calculation BUN/Creatinine Ratio Glucose Calculated Osmolality Calcium Magnesium Triglycerides Cholesterol LDL Cholesterol VLDL Cholesterol HDL Cholesterol Heart Disease Risk Ratio Blood Type O POSITIVE Antibody Screen Negative 08/22/16 08/22/16 03:45 03:45 WBC RBC Hgb Hct MCV MCH MCHC RDW Plt Count MPV Neut % (Auto) Lymph % (Auto) [place] % (Auto) Eos % (Auto) Baso % (Auto) Neut # (Auto) Lymph # (Auto) [place] # (Auto) Eos # (Auto) Baso # (Auto) Immature Gran % Nucleated RBC % Immature Gran # Nucleated RBCs # Sodium 143 Potassium 3.7 Chloride 106 Carbon Dioxide 25 Anion Gap 15.7 H BUN 9 Creatinine 0.50 L GFR Calculation 121 BUN/Creatinine Ratio 18.00 Glucose 72 L Calculated Osmolality 282.0 Calcium 7.4 L Magnesium 2.0 Triglycerides 149 Cholesterol 61 LDL Cholesterol 31.0 VLDL Cholesterol 29.8 HDL Cholesterol < 10 L Heart Disease Risk Ratio 6.10 Blood Type Antibody Screen
[2016-08-22] MEDS: ALUMINUM/MAGNES/SIMETH MAX STR 30 ML UDCUP PO PRN ×2 (12:50→18:31)
[2016-08-22] MEDS: PHENYLEPHRINE DRIP 40 MG/250 ML PREMIX IV SCH (13:10)
[2016-08-22] MEDS: HYDROmorphone PCA 30 MG/30 ML SYRINGE IV SCH (14:01)
[2016-08-22] MEDS: ENOXAPARIN 40 MG/0.4 ML SYRINGE SUBCUT SCH (15:45)
[2016-08-22] MEDS ORDERED: ALUM/MAG/SIMETH/LIDO VISC 1:1 30 ML BOTTLE PO ONE (19:45)
[2016-08-23] MEDS: KETOROLAC 15 MG/1 ML VIAL IV SCH ×4 (01:30→20:51)
[2016-08-23] MEDS: CLORAZEPATE 3.75 MG TABLET PO PRN ×2 (03:07→23:26)
[2016-08-23 04:25] LABS: Basophils % 0.2 % (0.0-0.8); Eosinophils # 0.2 10*3/uL (0.0-0.87); Eosinophils % 2.2 % (0.00-10.9); Hematocrit 30.4 VOL% (42.0-52.0); Hemoglobin 9.6 GM/DL (14.0-18.0); Immature Granulocytes % 0.9 %; Immature Granulocytes Absolute 0.09 #; Lymphocytes # 0.6 10*3/uL (1.4-4.0); Lymphocytes % 6.6 % (21.2-54.2); Mean Corpuscular HGB Conc 31.6 GM/DL (32-36); Mean Corpuscular Hemoglobin 28 PG (27-34); Mean Corpuscular Volume 89.4 FL (87-102); Mean Platelet Volume 9.6 FL (9.6-12.0); Monocytes # 0.6 10*3/uL (0.11-0.8); Monocytes % 5.8 % (1.7-12.7); Neutrophils % 84.3 % (38.7-73.9); Platelet Count 224 T/CUMM (130-400); Red Cell Distribution Width 13.8 % (9.3-17.3); White Blood Count 9.5 T/CUMM (4-12)
[2016-08-23 04:55] LABS: Calcium 7.5 MG/DL (8.5-10.1); Magnesium 1.9 MG/DL (1.8-2.4); Osmolality,Calculated 275.4 MOS/KG (273-304); Potassium 3.7 MMOL/L (3.5-5.1)
[2016-08-23] MEDS: LEVOTHYROXINE 50 MCG TABLET PO SCH (06:14)
[2016-08-23] MEDS: LACTATED RINGERS 1,000 ML IV SCH ×3 (06:19→23:50)
--- NOTE | 2016-08-23 07:30 | EKG Report ---
Stationary ECG Study [facility] Test Date: 08/23/2016 7:32:17 AM Pat Name: KEYA BROWN Department: Room: 116 Gender: M Data Processor: SF : 1945 Requested by: Petey Carrero Order Number: [id number] Reading MD: PETEY CARRERO Intervals [place] Rate: 115 P: 56 NM: 146 QRS: 36 QRSD: 81 T: 18 QT: 303 QTc: 371 Interpretive Statements SINUS TACHYCARDIA WITH OCCASIONAL VENTRICULAR PREMATURE COMPLEXES ABNORMAL RHYTHM ECG Electronically Signed On 08-23-16 07:34:19 CDT by PETEY CARRERO [email or web address]
--- NOTE | 2016-08-23 07:56 | Cardiology Progress Note ---
<Aline Tai E - Last Filed: 08/23/16 08:14> Assessment and Plan - Time spent with patient Time spent with patient: Greater than 30 minutes (1) CAD (coronary artery disease) Status: Chronic Assessment and plan: SEE PLAN OF CARE LISTED BELOW Current Visit: Yes Qualifiers: Coronary Disease-Associated Artery/Lesion type: [place] artery [place] vs. transplanted heart: [place] heart Associated angina: without angina Qualified Code(s): I25.10 - Atherosclerotic heart disease of [place] coronary artery without angina pectoris (2) History of colostomy Status: Chronic Assessment and plan: SEE PLAN OF CARE LISTED BELOW Current Visit: Yes (3) Hypercholesterolemia Status: Chronic Assessment and plan: SEE PLAN OF CARE LISTED BELOW Current Visit: Yes (4) Anemia Status: Acute Assessment and plan: SEE PLAN OF CARE LISTED BELOW Current Visit: Yes (5) Incarcerated hernia of abdominal cavity Status: Acute Assessment and plan: SEE PLAN OF CARE LISTED BELOW Current Visit: Yes (6) Stented coronary artery Status: Chronic Assessment and plan: SEE PLAN OF CARE LISTED BELOW Current Visit: Yes (7) Murmur, cardiac Status: Chronic Assessment and plan: SEE PLAN OF CARE LISTED BELOW Current Visit: Yes (8) Sinus tachycardia Status: Acute Assessment and plan: SEE PLAN OF CARE LISTED BELOW Current Visit: Yes Cardiology - PN: Subj Interval history: LAPPING MACHINE SET UP OPERATOR: DR. BALDERAS SUMMARY: Mr. Willams, 70WM, with a known history of coronary artery disease, dyslipidemia. April 13, 2016 underwent proximal LAD (2 Emery), mid LAD (2 Emery), distal LAD (1 ARON). Admitted August 19, 2016 with abdominal pain. Was found to have an incarcerated hernia related to his colostomy. He urgently underwent exploratory laparotomy and reduction of parastomal hernia. In a staged fashion , returned to the OR the following day for reexploration with second look laparotomy and found to have strangulated small bowel treated with reduction of parastomal hernia through exploratory laparotomy with delayed closure. AUGUST 21, 2016: This morning, patient is improving. He did require several fluid boluses for hypotension during the night. This has improved as well. He is being maintained in the ventilator but awake, alert and cooperative. No arrhythmia overnight. He is anemic but expected, appears to be stable. Magnesium is low and will verify that he is on magnesium replacement protocol. He is being maintained on aspirin, Plavix, lipid-lowering agent. When able, will introduce beta blockers and/or VITALIY inhibitor as needed. Will further discuss with Dr. Carrero and await additional recommendations. AUGUST 22, 2016: Extubated this morning, appears to be improving well. Apparently he had some hypotension which responded well to fluid bolus. At this point, he is not on pressors and blood pressure stable. Denies chest pain and appears to be breathing comfortably. Labs are stable. Of note, he did have a rash. In the lower chest upper abdominal area laterally during the night. Echocardiogram August 20, 2016: EF 60%, trivial AMS, PAP 30 mmHg AUGUST 23, 2016: This morning, patient tells me he is feeling better. Off pressors. Blood pressure is stable. Heart rate reveals a sinus tachycardia low 100s. Continue with IV hydration. Anemia is stable on Aspirin and Plavix. Would like to add a beta-brent soon. If blood pressure remains to be stable , may consider starting this afternoon. Rhonchi throughout [place]. I obtained an incentive spirometry device and we reviewed how to use and he demonstrated ability. EF is 50%, safe to continue with hydration. Will further discuss with Dr. Carrero and await additional recommendations. ASSESSMENT/PLAN: 1. INCARCERATED HERNIA REPAIR - status post repair. Stable 2. COLOSTOMY - pink stoma. Continue current plan of care 3. CAD WITH RECENT PCI - April 2016 required multiple PCI to the LAD with a total of 5 drug-eluting stents. Continue Aspirin/Plavix. 4. DYSLIPIDEMIA - continue lipid-lowering agent. LDL 31. 5. ANEMIA - seems to be stable on Aspirin and Plavix. 6. CARDIAC MURMUR - benign per recent echo 7. SINUS TACHYCARDIA - stable, will consider adding beta-brent this afternoon if blood pressure remained stable. Exam (Progress Note) - Constitutional Vitals: Period Temp Pulse Resp BP Sys/Butler Pulse Ox Last 24 Hr 97.5 F-98.7 F 83-118 10-30 102-139/54-75 87-98 Exam: General: [Appears well with no apparent distress.] [Pleasant and cooperative. ] [Appears comfortable.] HEENT: [Normocephalic, atraumatic. Mucous membranes moist. No jaundice noted. Conjunctiva moist and clear, sclerae anicteric] Neck: No JVD/HJR, no thyromegaly or lymphadenopathy noted. No carotid bruit appreciated Cardiac: [Regular rate and rhythm.] [No obvious murmur, rub or gallop.] Lungs: [Lungs relatively clear. Symmetrical chest wall movements noted. Abdomen: Hypoactive colostomy intact, pink stoma. Dressing dry and intact mid abdomen. Musculoskeletal: No fluid collection. Decreased range of motion is noted. Extremities: No clubbing, cyanosis noted. [ No edema noted.] Upper extremity pulses 2+. Lower extremity pulses 2+. Capillary refill less than 3 seconds. Skin: Red, raised rash laterally across the upper abdomen. No skin breakdown appreciated. Neuro: Awake, alert and oriented 3. Moves all extremities well without hemiparesis or paralysis. No essential tremor is appreciated. Result/EKG - Labs CBC & BMP: 08/23/16 03:25 08/23/16 03:25 Lab Results: I have reviewed the past 24 hour labs Labs: Laboratory Results - last 24 hr 08/23/16 08/23/16 03:25 03:25 WBC 9.5 RBC 3.40 L Hgb 9.6 L Hct 30.4 L MCV 89.4 MCH 28 MCHC 31.6 L RDW 13.8 Plt Count 224 D MPV 9.6 Neut % (Auto) 84.3 H Lymph % (Auto) 6.6 L [place] % (Auto) 5.8 Eos % (Auto) 2.2 Baso % (Auto) 0.2 Neut # (Auto) 8.0 H Lymph # (Auto) 0.6 L [place] # (Auto) 0.6 Eos # (Auto) 0.2 Baso # (Auto) 0.0 Immature Gran % 0.9 Nucleated RBC % 0.0 Immature Gran # 0.09 Nucleated RBCs # 0.00 Sodium 140 Potassium 3.7 Chloride 105 Carbon Dioxide 24 Anion Gap 14.7 BUN 8 Creatinine 0.50 L GFR Calculation 121 BUN/Creatinine Ratio 16.00 Glucose 85 Calculated Osmolality 275.4 Calcium 7.5 L Magnesium 1.9 - EKG EKG results: interpreted by me EKG shows: tachycardia, sinus rhythm Quality Measures - VTE Contraindication to Pharmacological VTE Prophylaxis: High Risk of Bleeding <Petey Carrero - Last Filed: 08/23/16 11:00> Assessment and Plan (1) Stented coronary artery Status: Chronic Current Visit: Yes (2) History of colostomy Status: Chronic Current Visit: Yes (3) Coronary artery disease Status: Deleted Current Visit: Yes (4) Hypercholesterolemia Status: Chronic Current Visit: Yes Cardiology - PN: Subj Interval history: Patient continues stable. I agree with assessment and plan and I will start him on beta blockade. I have discussed in detail the particulars of this case and I have examined the patient and reviewed the patient's chart both current and old. I was directly involved in the patient's evaluation and management and I completely agree with Aline Tai NP regarding this patient's evaluation and treatment plan. Exam (Progress Note) - Constitutional Vitals: Period Temp Pulse Resp BP Sys/Butler Pulse Ox Last 24 Hr 97.5 F-98.1 F 83-118 10-27 102-139/54-80 87-98 Result/EKG - Labs CBC & BMP: 08/23/16 03:25 08/23/16 03:25 Labs: Laboratory Results - last 24 hr 08/23/16 08/23/16 03:25 03:25 WBC 9.5 RBC 3.40 L Hgb 9.6 L Hct 30.4 L MCV 89.4 MCH 28 MCHC 31.6 L RDW 13.8 Plt Count 224 D MPV 9.6 Neut % (Auto) 84.3 H Lymph % (Auto) 6.6 L [place] % (Auto) 5.8 Eos % (Auto) 2.2 Baso % (Auto) 0.2 Neut # (Auto) 8.0 H Lymph # (Auto) 0.6 L [place] # (Auto) 0.6 Eos # (Auto) 0.2 Baso # (Auto) 0.0 Immature Gran % 0.9 Nucleated RBC % 0.0 Immature Gran # 0.09 Nucleated RBCs # 0.00 Sodium 140 Potassium 3.7 Chloride 105 Carbon Dioxide 24 Anion Gap 14.7 BUN 8 Creatinine 0.50 L GFR Calculation 121 BUN/Creatinine Ratio 16.00 Glucose 85 Calculated Osmolality 275.4 Calcium 7.5 L Magnesium 1.9
--- NOTE | 2016-08-23 07:57 | Pulmonology Progress Note ---
Pulmonary - PN: Subj Interval history: Patient is a 70-year-old white man that presented with an acute abdomen with nausea and vomiting and had an incarcerated ventral hernia. His first operation was a couple nights ago. He was stable on the ventilator and had a relook operation yesterday evening. He has had his abdominal wound closed. He did well yesterday and was able to be extubated. He has had a little bit of trouble with his blood pressure but is better now. He still is very sore and cannot cough very well. He says he was a little congested last night but is better now. Overall he looks reasonably stable. Exam (Progress Note) - Constitutional Vitals: Period Temp Pulse Resp BP Sys/Butler Pulse Ox Last 24 Hr 97.5 F-98.7 F 83-118 10-30 102-139/54-75 87-98 Exam: General appearance: normal weight, no acute distress (Patient is alert and talking and looks comfortable. He continues to be very sore.) - Head Head exam: Present: normal inspection, normocephalic - Eye Eye exam: Present: EOMI. Absent: scleral icterus Pupils: Present: PATRICIO - ENT ENT exam: Present: normal exam - Neck Neck exam: Present: normal inspection. Absent: lymphadenopathy, thyromegaly - Respiratory Respiratory exam: Present: He has very good breath sounds bilaterally but he does have some rhonchi present. - Cardiovascular Cardiovascular exam: Present: regular rate and rhythm. He still has a mild tachycardia. Absent: gallop, systolic murmur - GI/Abdominal GI/Abdominal exam: Present: soft, other (Abdomen is soft and the wound looks okay. ) - Extremities Exam Extremities exam: Absent: calf tenderness, edema, he moves his extremities okay. - Neurological Exam Neurological exam: Present: alert, he is moving everything well without any weakness. - Psychiatric Psychiatric exam: Present: normal affect - Skin Skin exam: Present: warm, dry Results - Labs CBC & BMP: 08/23/16 03:25 08/23/16 03:25 Assessment and Plan (1) Hypotension Status: Acute Assessment and plan: The patient is doing much better and his blood pressure and heart rate are stable. His volume status looks better. He is still very weak. Current Visit: Yes (2) Pancreatic cancer Status: Chronic Assessment and plan: The patient apparently had a Whipple procedure several years ago. Current Visit: No (3) Incarcerated hernia of abdominal cavity Status: Acute Assessment and plan: Patient comes in with an incarcerated ventral hernia is now postop. He is still very sore but his abdomen is doing better. He still has a little trouble coughing and is very slow moving. Otherwise he is doing okay. Current Visit: Yes (4) Acute abdomen Status: Acute Assessment and plan: Patient came in with nausea vomiting and acute abdomen and is now postop. So far is stable postop. He will probably go to a regular room today. Current Visit: Yes
[2016-08-23] MEDS: MONTELUKAST 10 MG TABLET PO SCH (09:16)
[2016-08-23] MEDS: GABAPENTIN 300 MG CAPSULE PO SCH ×3 (09:16→20:51)
[2016-08-23] MEDS: TAMSULOSIN 0.4 MG CAPSULE PO SCH (09:16)
[2016-08-23] MEDS: SIMVASTATIN 40 MG TABLET PO SCH (09:16)
[2016-08-23] MEDS: CLOPIDOGREL 75 MG TABLET PO SCH (09:17)
[2016-08-23] MEDS: ASPIRIN CHEW 81 MG TABLET PO SCH (09:17)
[2016-08-23] MEDS: PANTOPRAZOLE 40 MG VIAL IV SCH (09:21)
[2016-08-23] MEDS: PIPERACILLIN/TAZOBACTAM 3,375 MG in SODIUM CHLORIDE 0.9% 100 ML IV SCH (09:26)
--- NOTE | 2016-08-23 10:26 | Event Note ---
General Surgery Progress Note Chief complaint This patient is a 71-year-old man admitted with a parastomal hernia that was incarcerated resulting in strangulated small bowel treated with reduction of parastomal hernia through exploratory laparotomy with delayed closure of abdomen and pelvis hernia repair on 08/20/2016 Interval history No events overnight. Patient was unable to transfer to a floor bed due to lack of nursing availability. He is passing gas and bowel movements through his ostomy. He feels well overall. He tolerated liquids with no nausea or vomiting. His labs are stable. Physical exam The patient is afebrile with normal vital signs other than some low-grade tachycardia His chest is clear His heart is regular His abdomen is soft and appropriately tender with normal bowel sounds. No evidence of parastomal hernia. Ostomy is functioning well. Midline incision is clean with no evidence of infection. Labs Reviewed Imaging None Assessment and plan Advance diet as tolerated Begin physical therapy and activity once transferred to the floor Continue Plavix, aspirin, and DVT chemoprophylaxis with Lovenox.
[2016-08-23] MEDS ORDERED: diphenhydrAMINE 50 MG/1 ML VIAL IV PRN (10:32)
[2016-08-23] MEDS: METOPROLOL TARTRATE 25 MG TABLET PO SCH ×2 (12:50→20:52)
[2016-08-23] MEDS ORDERED: HYDROmorphone 2 MG/1 ML VIAL IV PRN (14:37)
[2016-08-23] MEDS: HYDROmorphone PCA 30 MG/30 ML SYRINGE IV SCH (15:58)
[2016-08-23] MEDS: ENOXAPARIN 40 MG/0.4 ML SYRINGE SUBCUT SCH (16:07)
[2016-08-23] MEDS: HYDROmorphone 2 MG/1 ML VIAL IV PRN ×2 (16:08→21:57)
[2016-08-24] MEDS: KETOROLAC 15 MG/1 ML VIAL IV SCH ×4 (02:05→21:22)
[2016-08-24] MEDS: HYDROmorphone 2 MG/1 ML VIAL IV PRN ×2 (02:07→17:35)
[2016-08-24 05:57] LABS: Basophils % 0.3 % (0.0-0.8); Eosinophils # 0.3 10*3/uL (0.0-0.87); Eosinophils % 2.5 % (0.00-10.9); Hematocrit 31.6 VOL% (42.0-52.0); Hemoglobin 10.4 GM/DL (14.0-18.0); Immature Granulocytes % 0.9 %; Immature Granulocytes Absolute 0.09 #; Lymphocytes # 0.8 10*3/uL (1.4-4.0); Lymphocytes % 7.5 % (21.2-54.2); Mean Corpuscular HGB Conc 32.9 GM/DL (32-36); Mean Corpuscular Hemoglobin 29 PG (27-34); Mean Corpuscular Volume 86.8 FL (87-102); Monocytes # 0.7 10*3/uL (0.11-0.8); Monocytes % 6.5 % (1.7-12.7); Neutrophils # 8.3 10*3/uL (1.4-7.4); Neutrophils % 82.3 % (38.7-73.9); Platelet Count 256 T/CUMM (130-400); Red Blood Count 3.64 MC/CUMM (3.8-5.5); Red Cell Distribution Width 13.9 % (9.3-17.3); White Blood Count 10.1 T/CUMM (4-12)
[2016-08-24] MEDS: LEVOTHYROXINE 50 MCG TABLET PO SCH (06:11)
[2016-08-24 06:35] LABS: Calcium 7.8 MG/DL (8.5-10.1); Magnesium 2.2 MG/DL (1.8-2.4); Osmolality,Calculated 279.1 MOS/KG (273-304); Potassium 3.8 MMOL/L (3.5-5.1)
--- NOTE | 2016-08-24 08:43 | Pulmonology Progress Note ---
Pulmonary - PN: Subj Interval history: Patient is a 70-year-old white man that presented with an acute abdomen with nausea and vomiting and had an incarcerated ventral hernia. His first operation was a couple nights ago. He was stable on the ventilator and had a relook operation. He had his abdomen closed and came off the ventilator okay. He said he had a fairly good night but feels badly this morning. He has had a little bit of shortness of breath and continues to have abdominal pain. He feels like he may be breaking out although I do not see a rash at present. Overall he just feels bad in general Exam (Progress Note) - Constitutional Vitals: Period Temp Pulse Resp BP Sys/Butler Pulse Ox Last 24 Hr 97.9 F-99.9 F 88-114 18-22 114-159/62-88 90-94 Exam: General appearance: normal weight, no acute distress (Patient is alert and looks like he is comfortable. He is not in any distress at all.) - Head Head exam: Present: normal inspection, normocephalic - Eye Eye exam: Present: EOMI. Absent: scleral icterus Pupils: Present: PATRICIO - ENT ENT exam: Present: normal exam - Neck Neck exam: Present: normal inspection. Absent: lymphadenopathy, thyromegaly - Respiratory Respiratory exam: Present: He has fairly good breath sounds bilaterally with some mild rhonchi. - Cardiovascular Cardiovascular exam: Present: regular rate and rhythm. He still has a mild tachycardia. Absent: gallop, systolic murmur - GI/Abdominal GI/Abdominal exam: Present: soft, other (Abdomen is soft and the wound looks okay. He still has some mild tenderness.) - Extremities Exam Extremities exam: Absent: calf tenderness, edema, he moves his extremities okay. - Neurological Exam Neurological exam: Present: alert, he is moving everything well without any weakness. - Psychiatric Psychiatric exam: Present: normal affect - Skin Skin exam: Present: warm, dry Results - Labs CBC & BMP: 08/24/16 05:38 08/24/16 05:38 Assessment and Plan (1) Hypotension Status: Acute Assessment and plan: The patient is doing much better and his blood pressure is up now. We will try to diurese just a little. Current Visit: Yes (2) Pancreatic cancer Status: Chronic Assessment and plan: The patient apparently had a Whipple procedure several years ago. Current Visit: No (3) Incarcerated hernia of abdominal cavity Status: Acute Assessment and plan: Patient comes in with an incarcerated ventral hernia is now postop. He is still very sore but his abdomen is doing better. He still has a little trouble coughing and is very slow moving. Otherwise he is doing okay. Current Visit: Yes (4) Acute abdomen Status: Acute Assessment and plan: Patient came in with nausea vomiting and acute abdomen and is now postop. He says he does not feel that well but I do not think he had a good night sleep. He is taking some liquids but still has considerable soreness. Current Visit: Yes
[2016-08-24] MEDS ORDERED: FUROSEMIDE 20 MG/2 ML VIAL IV ONE (08:48)
--- NOTE | 2016-08-24 09:01 | Event Note ---
General Surgery Progress Note Chief complaint This patient is a 71-year-old man admitted with a parastomal hernia that was incarcerated resulting in strangulated small bowel treated with reduction of parastomal hernia through exploratory laparotomy with delayed closure of abdomen and pelvis hernia repair on 08/20/2016 Interval history No events overnight. The patient is having some sundowning with delirium at nighttime. He is tolerating his liquid diet with no nausea or vomiting. Urine output is good. Labs are normal today. AVEL drain is serosanguineous. Physical exam The patient does have a low-grade temp this morning with low-grade tachycardia otherwise his vital signs been normal His chest is clear His heart is regular His abdomen is soft and appropriately tender with normal bowel sounds. No evidence of parastomal hernia. Ostomy is functioning well. Midline incision is clean with no evidence of infection. He has a little bit of a rash on his abdominal wall which looks like an antibiotic allergy Labs Reviewed Imaging None Assessment and plan Advance diet as tolerated Begin physical therapy and activity today, patient has not ambulated yet Continue Plavix, aspirin, and DVT chemoprophylaxis with Lovenox. Stop antibiotics
[2016-08-24] MEDS: PANTOPRAZOLE 40 MG VIAL IV SCH (09:24)
[2016-08-24] MEDS: GABAPENTIN 300 MG CAPSULE PO SCH ×3 (09:27→21:22)
[2016-08-24] MEDS: ASPIRIN CHEW 81 MG TABLET PO SCH (09:27)
[2016-08-24] MEDS: SIMVASTATIN 40 MG TABLET PO SCH (09:27)
[2016-08-24] MEDS: CLOPIDOGREL 75 MG TABLET PO SCH (09:27)
[2016-08-24] MEDS: METOPROLOL TARTRATE 25 MG TABLET PO SCH ×2 (09:27→21:22)
[2016-08-24] MEDS: TAMSULOSIN 0.4 MG CAPSULE PO SCH (09:28)
[2016-08-24] MEDS: MONTELUKAST 10 MG TABLET PO SCH (09:28)
--- NOTE | 2016-08-24 14:20 | Cardiology Progress Note ---
Huber Gongora April, RN, am scribing for, and in the presence of, Petey Carrero MD 14:20. Assessment and Plan (1) CAD (coronary artery disease) Status: Chronic Assessment and plan: He required multiple PCI to the day with a total of 5 drug-eluting stents in April 2016. Continue aspirin and Plavix. Current Visit: Yes Qualifiers: Coronary Disease-Associated Artery/Lesion type: [place] artery [place] vs. transplanted heart: [place] heart Associated angina: without angina Qualified Code(s): I25.10 - Atherosclerotic heart disease of [place] coronary artery without angina pectoris (2) Anemia Status: Acute Assessment and plan: This is stable on aspirin and Plavix. Current Visit: Yes (3) Incarcerated hernia of abdominal cavity Status: Acute Assessment and plan: Status post repair, stable. Dr. Smalls is following. Current Visit: Yes (4) Sinus tachycardia Status: Acute Assessment and plan: Metoprolol tartrate was added yesterday. Heart rate this morning in the 80s- 90s. Current Visit: Yes (5) History of colostomy Status: Chronic Current Visit: Yes (6) Hypercholesterolemia Status: Chronic Current Visit: Yes Cardiology - PN: Subj Interval history: NOTE TELLER: DR. BALDERAS SUMMARY: Mr. Willams, 70WM, with a known history of coronary artery disease, dyslipidemia. April 13, 2016 underwent proximal LAD (2 Emery), mid LAD (2 Emery), distal LAD (1 ARON). Admitted August 19, 2016 with abdominal pain. Was found to have an incarcerated hernia related to his colostomy. He urgently underwent exploratory laparotomy and reduction of parastomal hernia. In a staged fashion , returned to the OR the following day for reexploration with second look laparotomy and found to have strangulated small bowel treated with reduction of parastomal hernia through exploratory laparotomy with delayed closure. August 24, 2016: Mr. Willams says he generally does not feel good. He gave me no specific complaints. He denies any chest pain. He does report rapid breathing and appears tachypneic. Oxygen is in use via nasal cannula. O2 sats have been in the low 90s. Metoprolol 12.5 p.o. twice daily was started yesterday. Vital signs been stable throughout the night. His H&H is slightly improved to 10.4 and 31.6. His kidney function and electrolytes are stable. He reports he has been trying to use his incentive spirometry frequently. Patient remains symptomatically stable with good vital signs and overall he is recovering without event. His cardiac status continues stable on good medications and we will continue following I have discussed in detail the particulars of this case and I have examined the patient and reviewed the patient's chart both current and old. I was directly involved in the patient's evaluation and management and I completely agree with Kely Ngo RN regarding this patient's evaluation and treatment plan. Exam (Progress Note) - Constitutional Vitals: Period Temp Pulse Resp BP Sys/Butler Pulse Ox Last 24 Hr 97.9 F-99.8 F 88-112 18-22 114-136/62-86 90-94 Exam: General: [Appears well with no apparent distress.] [Pleasant and cooperative. ] [Appears comfortable.] HEENT: [Normocephalic, atraumatic. Mucous membranes moist. No jaundice noted. Conjunctiva moist and clear, sclerae anicteric] Neck: No JVD/HJR, no thyromegaly or lymphadenopathy noted. No carotid bruit appreciated Cardiac: [Regular rate and rhythm.] [No obvious murmur, rub or gallop.] Lungs: [Lungs relatively clear. Symmetrical chest wall movements noted. Abdomen: Hypoactive colostomy intact, pink stoma. Dressing dry and intact mid abdomen. Musculoskeletal: No fluid collection. Decreased range of motion is noted. Extremities: No clubbing, cyanosis noted. [ No edema noted.] Upper extremity pulses 2+. Lower extremity pulses 2+. Capillary refill less than 3 seconds. Skin: Red, raised rash laterally across the upper abdomen. No skin breakdown appreciated. Neuro: Awake, alert and oriented 3. Moves all extremities well without hemiparesis or paralysis. No essential tremor is appreciated. Result/EKG - Labs CBC & BMP: 08/24/16 05:38 08/24/16 05:38 Lab Results: I have reviewed the past 24 hour labs Labs: Laboratory Results - last 24 hr 08/24/16 08/24/16 05:38 05:38 WBC 10.1 RBC 3.64 L Hgb 10.4 L Hct 31.6 L MCV 86.8 L MCH 29 MCHC 32.9 RDW 13.9 Plt Count 256 MPV 9.0 L Neut % (Auto) 82.3 H Lymph % (Auto) 7.5 L [place] % (Auto) 6.5 Eos % (Auto) 2.5 Baso % (Auto) 0.3 Neut # (Auto) 8.3 H Lymph # (Auto) 0.8 L [place] # (Auto) 0.7 Eos # (Auto) 0.3 Baso # (Auto) 0.0 Immature Gran % 0.9 Nucleated RBC % 0.0 Immature Gran # 0.09 Nucleated RBCs # 0.00 Sodium 142 Potassium 3.8 Chloride 107 Carbon Dioxide 25 Anion Gap 13.8 BUN 5 L Creatinine 0.60 L GFR Calculation 111 BUN/Creatinine Ratio 8.00 Glucose 107 H Calculated Osmolality 279.1 Calcium 7.8 L Magnesium 2.2 Quality Measures - VTE Contraindication to Pharmacological VTE Prophylaxis: High Risk of Bleeding Magan Gongora Wesley, MD, personally performed the services described in this documentation, ascribed by Kely Ngo RN in my presence, and it is both accurate and complete 420 .
[2016-08-24] MEDS: ENOXAPARIN 40 MG/0.4 ML SYRINGE SUBCUT SCH (15:04)
[2016-08-24] MEDS: ALUMINUM/MAGNES/SIMETH MAX STR 30 ML UDCUP PO PRN (17:34)
[2016-08-25] MEDS: HYDROmorphone 2 MG/1 ML VIAL IV PRN (00:38)
[2016-08-25] MEDS: KETOROLAC 15 MG/1 ML VIAL IV SCH ×4 (04:27→21:11)
[2016-08-25] MEDS: LEVOTHYROXINE 50 MCG TABLET PO SCH (06:04)
--- NOTE | 2016-08-25 08:03 | Pulmonology Progress Note ---
Pulmonary - PN: Subj Interval history: This 70-year-old white male had an incarcerated ventral hernia as a result of previous laparotomy for a Whipple procedure. He had surgery and is doing pretty well. He does have some postoperative atelectasis and required some fluids. He is better after Lasix and he is continuing to do incentive spirometry regularly. Exam (Progress Note) - Constitutional Vitals: Period Temp Pulse Resp BP Sys/Butler Pulse Ox Last 24 Hr 97.9 F-99.9 F 91-114 18-22 109-159/63-88 90-96 Exam: Vital signs are normal. Pupils react to light. Throat is clear. Neck supple no bruits. Chest shows a few basilar rhonchi. Heart normal rate and rhythm no murmurs. Abdomen is soft bandaged decreased bowel sounds present. Extremities no clubbing cyanosis or edema. Calves nontender. Results - Labs CBC & BMP: 08/24/16 05:38 08/24/16 05:38 Lab Results: I have reviewed the past 24 hour labs Assessment and Plan (1) Pancreatic cancer Status: Chronic Assessment and plan: Patient has previously had a Whipple procedure. Current Visit: No (2) Incarcerated hernia of abdominal cavity Status: Acute Assessment and plan: This is been repaired with surgery. Patient is eating some at present. Current Visit: Yes (3) CAD (coronary artery disease) Status: Chronic Assessment and plan: No active angina. Previous cardiac stents. Current Visit: Yes Qualifiers: Coronary Disease-Associated Artery/Lesion type: [place] artery [place] vs. transplanted heart: [place] heart Associated angina: without angina Qualified Code(s): I25.10 - Atherosclerotic heart disease of [place] coronary artery without angina pectoris
--- NOTE | 2016-08-25 08:27 | Event Note ---
Status post ex lap. Afebrile vital signs stable. Patient states he is feeling better and has been working with physical therapy. He is tolerating a regular diet. Stoma appears viable with some stool in the bag. His abdomen is soft appropriately tender nondistended incision looks okay. Encouraged ambulation.
[2016-08-25] MEDS: METOPROLOL TARTRATE 25 MG TABLET PO SCH ×2 (08:42→21:11)
[2016-08-25] MEDS: ASPIRIN CHEW 81 MG TABLET PO SCH (08:42)
[2016-08-25] MEDS: TAMSULOSIN 0.4 MG CAPSULE PO SCH (08:42)
[2016-08-25] MEDS: GABAPENTIN 300 MG CAPSULE PO SCH ×3 (08:43→21:11)
[2016-08-25] MEDS: CLOPIDOGREL 75 MG TABLET PO SCH (08:44)
[2016-08-25] MEDS: MONTELUKAST 10 MG TABLET PO SCH (08:47)
[2016-08-25] MEDS: SIMVASTATIN 40 MG TABLET PO SCH (08:48)
[2016-08-25] MEDS: PANTOPRAZOLE 40 MG VIAL IV SCH (08:49)
[2016-08-25] MEDS: ALUMINUM/MAGNES/SIMETH MAX STR 30 ML UDCUP PO PRN (10:20)
--- NOTE | 2016-08-25 12:22 | Cardiology Progress Note ---
Assessment and Plan (1) CAD (coronary artery disease) Status: Chronic Assessment and plan: He required multiple PCI to the day with a total of 5 drug-eluting stents in April 2016. Continue aspirin and Plavix. Current Visit: Yes Qualifiers: Coronary Disease-Associated Artery/Lesion type: [place] artery [place] vs. transplanted heart: [place] heart Associated angina: without angina Qualified Code(s): I25.10 - Atherosclerotic heart disease of [place] coronary artery without angina pectoris (2) Anemia Status: Acute Assessment and plan: This is stable on aspirin and Plavix. Current Visit: Yes (3) Incarcerated hernia of abdominal cavity Status: Acute Assessment and plan: Status post repair, stable. Dr. Smalls is following. Current Visit: Yes (4) Sinus tachycardia Status: Acute Assessment and plan: Metoprolol tartrate was added yesterday. Heart rate this morning in the 80s- 90s. Current Visit: Yes (5) History of colostomy Status: Chronic Current Visit: Yes (6) Hypercholesterolemia Status: Chronic Current Visit: Yes Cardiology - PN: Subj Interval history: Patient continues cardiac stable. He has had no anginal chest pain. He does have some peripheral edema affecting his feet which I think is likely related to fluid resuscitation over the hospitalization and will improve with diuresis as he is getting now. Overall from a cardiac standpoint is stable. Exam (Progress Note) - Constitutional Vitals: Period Temp Pulse Resp BP Sys/Butler Pulse Ox Last 24 Hr 97.8 F-99.9 F 81-108 14-20 94-150/52-81 90-96 Exam: General: [Appears well with no apparent distress.] [Pleasant and cooperative. ] [Appears comfortable.] HEENT: [Normocephalic, atraumatic. Mucous membranes moist. No jaundice noted. Conjunctiva moist and clear, sclerae anicteric] Neck: No JVD/HJR, no thyromegaly or lymphadenopathy noted. No carotid bruit appreciated Cardiac: [Regular rate and rhythm.] [No obvious murmur, rub or gallop.] Lungs: [Lungs relatively clear. Symmetrical chest wall movements noted. Abdomen: Hypoactive colostomy intact, pink stoma. Dressing dry and intact mid abdomen. Musculoskeletal: No fluid collection. Decreased range of motion is noted. Extremities: No clubbing, cyanosis noted. [ No edema noted.] Upper extremity pulses 2+. Lower extremity pulses 2+. Capillary refill less than 3 seconds. Skin: Red, raised rash laterally across the upper abdomen. No skin breakdown appreciated. Neuro: Awake, alert and oriented 3. Moves all extremities well without hemiparesis or paralysis. No essential tremor is appreciated. Result/EKG - Labs CBC & BMP: 08/24/16 05:38 08/24/16 05:38 Quality Measures - VTE Contraindication to Pharmacological VTE Prophylaxis: High Risk of Bleeding
[2016-08-25] MEDS: FUROSEMIDE 40 MG TABLET PO SCH (13:04)
[2016-08-25] MEDS: ENOXAPARIN 40 MG/0.4 ML SYRINGE SUBCUT SCH (15:04)
[2016-08-25] MEDS: CLORAZEPATE 3.75 MG TABLET PO PRN (21:11)
[2016-08-26] MEDS: KETOROLAC 15 MG/1 ML VIAL IV SCH ×4 (03:21→21:13)
[2016-08-26 05:55] LABS: Calcium 7.1 MG/DL (8.5-10.1); Magnesium 2.1 MG/DL (1.8-2.4); Osmolality,Calculated 278.3 MOS/KG (273-304); Potassium 2.6 MMOL/L (3.5-5.1)
[2016-08-26] MEDS: LEVOTHYROXINE 50 MCG TABLET PO SCH (06:06)
[2016-08-26] MEDS: CARBOXYMETHYLCELLULOSE 1% OPH SOLN BOTH EYES PRN ×2 (07:34→18:15)
[2016-08-26] MEDS: FUROSEMIDE 40 MG TABLET PO SCH (09:25)
[2016-08-26] MEDS: ASPIRIN CHEW 81 MG TABLET PO SCH (09:25)
[2016-08-26] MEDS: TAMSULOSIN 0.4 MG CAPSULE PO SCH (09:25)
[2016-08-26] MEDS: SIMVASTATIN 40 MG TABLET PO SCH (09:26)
[2016-08-26] MEDS: CLOPIDOGREL 75 MG TABLET PO SCH (09:26)
[2016-08-26] MEDS: METOPROLOL TARTRATE 25 MG TABLET PO SCH ×2 (09:26→21:13)
[2016-08-26] MEDS: MONTELUKAST 10 MG TABLET PO SCH (09:26)
[2016-08-26] MEDS: GABAPENTIN 300 MG CAPSULE PO SCH ×3 (09:26→21:13)
[2016-08-26] MEDS: PANTOPRAZOLE 40 MG VIAL IV SCH (09:27)
--- NOTE | 2016-08-26 10:45 | Pulmonology Progress Note ---
Pulmonary - PN: Subj Interval history: This 70-year-old white male had an incarcerated ventral hernia as a result of previous laparotomy for a Whipple procedure. He had surgery and is doing pretty well. He does have some postoperative atelectasis and required some fluids. He is better after Lasix and he is continuing to do incentive spirometry regularly. 08/26/2016 patient's breathing is okay. He just does not feel well. I note that his potassium is low at 2.6. We will replace that. Exam (Progress Note) - Constitutional Vitals: Period Temp Pulse Resp BP Sys/Butler Pulse Ox Last 24 Hr 97.9 F-99.8 F 81-99 16-20 94-129/52-75 94-96 Exam: Vital signs are normal. Pupils react to light. Throat is clear. Neck supple no bruits. Chest shows a few basilar rhonchi. Heart normal rate and rhythm no murmurs. Abdomen is soft bandaged decreased bowel sounds present. Extremities no clubbing cyanosis or edema. Calves nontender. Little change from yesterday. Results - Labs CBC & BMP: 08/24/16 05:38 08/26/16 05:02 Lab Results: I have reviewed the past 24 hour labs Assessment and Plan (1) Pancreatic cancer Status: Chronic Assessment and plan: Patient has previously had a Whipple procedure. Current Visit: No (2) Incarcerated hernia of abdominal cavity Status: Acute Assessment and plan: This is been repaired with surgery. Patient is eating some at present. 08/26/2016 patient is eating a little. Current Visit: Yes (3) CAD (coronary artery disease) Status: Chronic Assessment and plan: No active angina. Previous cardiac stents. 08/26/2016 no chest pain. Current Visit: Yes Qualifiers: Coronary Disease-Associated Artery/Lesion type: [place] artery [place] vs. transplanted heart: [place] heart Associated angina: without angina Qualified Code(s): I25.10 - Atherosclerotic heart disease of [place] coronary artery without angina pectoris (4) Hypokalemia Status: Acute Assessment and plan: Potassium down to 2.6. Ordered replacement. Current Visit: Yes
--- NOTE | 2016-08-26 11:04 | Cardiology Progress Note ---
Assessment and Plan (1) CAD (coronary artery disease) Status: Chronic Assessment and plan: He required multiple PCI to the day with a total of 5 drug-eluting stents in April 2016. Continue aspirin and Plavix. Current Visit: Yes Qualifiers: Coronary Disease-Associated Artery/Lesion type: [place] artery [place] vs. transplanted heart: [place] heart Associated angina: without angina Qualified Code(s): I25.10 - Atherosclerotic heart disease of [place] coronary artery without angina pectoris (2) Anemia Status: Acute Assessment and plan: This is stable on aspirin and Plavix. Current Visit: Yes (3) Incarcerated hernia of abdominal cavity Status: Acute Assessment and plan: Status post repair, stable. Dr. Smalls is following. Current Visit: Yes (4) Sinus tachycardia Status: Acute Assessment and plan: Metoprolol tartrate was added yesterday. Heart rate this morning in the 80s- 90s. Current Visit: Yes (5) History of colostomy Status: Chronic Current Visit: Yes (6) Hypercholesterolemia Status: Chronic Current Visit: Yes Cardiology - PN: Subj Interval history: Mr. Willams has responded to Lasix with diuresis. His potassium was dropped 2.6 and is getting replaced. He feels poorly and I think it is related to diuresis and hypokalemia and hopefully with continued recovery he will improved. He is cardiac stable otherwise. Exam (Progress Note) - Constitutional Vitals: Period Temp Pulse Resp BP Sys/Butler Pulse Ox Last 24 Hr 97.9 F-99.8 F 81-99 16-20 94-129/52-75 94-96 Exam: General: [Appears well with no apparent distress.] [Pleasant and cooperative. ] [Appears comfortable.] HEENT: [Normocephalic, atraumatic. Mucous membranes moist. No jaundice noted. Conjunctiva moist and clear, sclerae anicteric] Neck: No JVD/HJR, no thyromegaly or lymphadenopathy noted. No carotid bruit appreciated Cardiac: [Regular rate and rhythm.] [No obvious murmur, rub or gallop.] Lungs: [Lungs relatively clear. Symmetrical chest wall movements noted. Abdomen: Hypoactive colostomy intact, pink stoma. Dressing dry and intact mid abdomen. Musculoskeletal: No fluid collection. Decreased range of motion is noted. Extremities: No clubbing, cyanosis noted. [1+ pitting edema of the lower extremities bilaterally.] Upper extremity pulses 2+. Lower extremity pulses 2+ . Capillary refill less than 3 seconds. Skin: Red, raised rash laterally across the upper abdomen. No skin breakdown appreciated. Neuro: Awake, alert and oriented 3. Moves all extremities well without hemiparesis or paralysis. No essential tremor is appreciated. Result/EKG - Labs CBC & BMP: 08/24/16 05:38 08/26/16 05:02 Labs: Laboratory Results - last 24 hr 08/26/16 05:02 Sodium 141 Potassium 2.6 L Chloride 101 Carbon Dioxide 31 Anion Gap 11.6 BUN 5 L Creatinine 0.50 L GFR Calculation 124 BUN/Creatinine Ratio 10.00 Glucose 122 H Calculated Osmolality 278.3 Calcium 7.1 L Magnesium 2.1 Quality Measures - VTE Contraindication to Pharmacological VTE Prophylaxis: High Risk of Bleeding
[2016-08-26] MEDS: POTASSIUM CHLORIDE 20 MEQ TABLET PO SCH (12:20)
[2016-08-26] MEDS: POTASSIUM CHLORIDE RIDER 10 MEQ in PREMIX 1 EACH IV PRN (12:20)
--- NOTE | 2016-08-26 12:53 | Event Note ---
Afebrile vital signs stable. AVEL drain with serosanguineous fluid. He is tolerating a regular diet. His stoma appears to be functioning well. His abdomen is soft appropriately tender nondistended. He needs to ambulate a bit more.
[2016-08-26] MEDS: POTASSIUM CHLORIDE RIDER 20 MEQ in PREMIX 1 EACH IV PRN ×2 (14:08→16:23)
[2016-08-26] MEDS: ALUMINUM/MAGNES/SIMETH MAX STR 30 ML UDCUP PO PRN (14:46)
[2016-08-26] MEDS: ENOXAPARIN 40 MG/0.4 ML SYRINGE SUBCUT SCH (15:46)
[2016-08-26] MEDS: HYDROmorphone 2 MG/1 ML VIAL IV PRN (21:19)
[2016-08-27] MEDS: POTASSIUM CHLORIDE RIDER 20 MEQ in PREMIX 1 EACH IV PRN ×2 (00:45→02:46)
[2016-08-27] MEDS: LACTATED RINGERS 1,000 ML IV SCH (01:39)
[2016-08-27] MEDS: KETOROLAC 15 MG/1 ML VIAL IV SCH (04:43)
[2016-08-27] MEDS: LEVOTHYROXINE 50 MCG TABLET PO SCH (07:18)
--- NOTE | 2016-08-27 08:09 | Pulmonology Progress Note ---
Pulmonary - PN: Subj Interval history: Patient is a 70-year-old white man that presented with an acute abdomen with nausea and vomiting and had an incarcerated ventral hernia. His first operation was a couple nights ago. He was stable on the ventilator and had a relook operation. He had his abdomen closed and came off the ventilator okay. Over the weekend he is improved each day. He is sitting up and starting to do a little more activity. His appetite is a little better. He said he did diurese well but still has some extra fluid weight. His breathing is much better however. Overall he looks much better than he did Saturday. Exam (Progress Note) - Constitutional Vitals: Period Temp Pulse Resp BP Sys/Butler Pulse Ox Last 24 Hr 97.4 F-98.6 F 76-93 16-20 110-132/63-81 95-98 Exam: General appearance: normal weight, no acute distress (Patient is sitting up and looks much more comfortable and alert.) - Head Head exam: Present: normal inspection, normocephalic - Eye Eye exam: Present: EOMI. Absent: scleral icterus Pupils: Present: PATRICIO - ENT ENT exam: Present: normal exam - Neck Neck exam: Present: normal inspection. Absent: lymphadenopathy, thyromegaly - Respiratory Respiratory exam: Present: He has fairly good breath sounds bilaterally is moving air well and his lungs sound clear. - Cardiovascular Cardiovascular exam: Present: regular rate and rhythm. His heart rate is better. Absent: gallop, systolic murmur - GI/Abdominal GI/Abdominal exam: Present: soft, other (Abdomen is soft and the wound looks okay. He still has some mild tenderness.) - Extremities Exam Extremities exam: Absent: calf tenderness, edema, he moves his extremities okay. - Neurological Exam Neurological exam: Present: alert, he is moving everything well without any weakness. - Psychiatric Psychiatric exam: Present: normal affect - Skin Skin exam: Present: warm, dry Results - Labs CBC & BMP: 08/24/16 05:38 08/26/16 21:04 Assessment and Plan (1) Hypotension Status: Acute Assessment and plan: The patient is doing much better and his blood pressure stable. He is starting to diurese quite well. Current Visit: Yes (2) Pancreatic cancer Status: Chronic Assessment and plan: The patient apparently had a Whipple procedure several years ago. Current Visit: No (3) Incarcerated hernia of abdominal cavity Status: Acute Assessment and plan: Patient comes in with an incarcerated ventral hernia is now postop. He is moving around much better and his abdomen is improved. His appetite is doing better. Current Visit: Yes (4) Acute abdomen Status: Acute Assessment and plan: Patient came in with nausea vomiting and acute abdomen and is now postop. He looks much better than it did Saturday. He is moving around more and eating better. Overall he is much improved. Current Visit: Yes
--- NOTE | 2016-08-27 08:38 | Event Note ---
General Surgery Progress Note Chief complaint This patient is a 71-year-old man admitted with a parastomal hernia that was incarcerated resulting in strangulated small bowel treated with reduction of parastomal hernia through exploratory laparotomy with delayed closure of abdomen and pelvis hernia repair on 08/20/2016 Interval history No events over the weekend. Patient is tolerating his diet but he just does not have a real good taste or appetite. No nausea or vomiting. Ostomy is working well. Pain is well controlled. He got up and walked some yesterday but needed a lot of assistance and is nervous about going home his current condition. He is sitting up in a chair already this morning. He is off of IV fluids and his antibiotics have been stopped. Physical exam Afebrile, normal vital signs His chest is clear His heart is regular His abdomen is soft and appropriately tender with normal bowel sounds. No evidence of parastomal hernia. Ostomy is functioning well. Midline incision is clean with no evidence of infection. Abdominal wall rash has resolved. Labs None new Imaging None Assessment and plan Continue regular diet Discharge to swing bed or rehab if approved and once approved No further acute inpatient care is required and the patient is doing well.
[2016-08-27] MEDS: ASPIRIN CHEW 81 MG TABLET PO SCH (11:49)
[2016-08-27] MEDS: POTASSIUM CHLORIDE 20 MEQ TABLET PO SCH (11:49)
[2016-08-27] MEDS: METOPROLOL TARTRATE 25 MG TABLET PO SCH ×2 (11:49→21:12)
[2016-08-27] MEDS: GABAPENTIN 300 MG CAPSULE PO SCH ×3 (11:49→21:12)
[2016-08-27] MEDS: SIMVASTATIN 40 MG TABLET PO SCH (11:49)
[2016-08-27] MEDS: FUROSEMIDE 40 MG TABLET PO SCH (11:49)
[2016-08-27] MEDS: TAMSULOSIN 0.4 MG CAPSULE PO SCH (11:49)
[2016-08-27] MEDS: MONTELUKAST 10 MG TABLET PO SCH (11:49)
[2016-08-27] MEDS: CLOPIDOGREL 75 MG TABLET PO SCH (11:49)
[2016-08-27] MEDS: POTASSIUM CHLORIDE RIDER 10 MEQ in PREMIX 1 EACH IV PRN ×3 (11:50→19:32)
[2016-08-27] MEDS: PANTOPRAZOLE 40 MG VIAL IV SCH (11:57)
[2016-08-27] MEDS ORDERED: POTASSIUM CHLORIDE 20 MEQ TABLET PO ONE (13:30)
--- NOTE | 2016-08-27 13:31 | Cardiology Progress Note ---
Chuck Gongora Vanessa, RN, am scribing for, and in the presence of, Sly Kaba MD 13:30. Assessment and Plan - Time spent with patient Time spent with patient: Greater than 30 minutes (1) CAD (coronary artery disease) Status: Chronic Assessment and plan: Stable. He is not having any anginal complaint. Continue Plavix, aspirin, statin. Current Visit: Yes Qualifiers: Coronary Disease-Associated Artery/Lesion type: [place] artery [place] vs. transplanted heart: [place] heart Associated angina: without angina Qualified Code(s): I25.10 - Atherosclerotic heart disease of [place] coronary artery without angina pectoris (2) Hypokalemia Status: Acute Assessment and plan: Improved from K+ 2.6 to 3.2 this morning. Potassium has been repleted with IV KCl per PRN protocol, and is on routine K Dur 20 mEq by mouth daily. Current Visit: Yes (3) Incarcerated hernia of abdominal cavity Status: Acute Assessment and plan: He has had fairly stable perioperative course. Pain is controlled and he is increasing his activity. Will defer primary management to surgical services. Current Visit: Yes (4) Anemia Status: Acute Assessment and plan: This is stable. Current Visit: Yes (5) Sinus tachycardia Status: Resolved Assessment and plan: Appears to have improved since addition of beta-bernt and improvement of other medical issues. Current Visit: Yes (6) Hypercholesterolemia Status: Chronic Assessment and plan: Statin continued. FLP this admission unremarkable. Current Visit: Yes (7) History of colostomy Status: Chronic Current Visit: Yes (8) Hypothyroid Status: Chronic Assessment and plan: Synthroid has been continued. Current Visit: Yes Cardiology - PN: Subj Interval history: PRIMARY IT INFRASTRUCTURE ARCHITECT: DR. BALDERAS SUMMARY: Mr. Willams, 70-year-old white male, with past medical history of CAD, dyslipidemia, hypothyroidism. He underwent PCI in April 2016 and received a total of 5 drug-eluting stents to the left anterior descending artery. Dual antiplatelet therapy with Plavix and aspirin since that time. Patient is now admitted to hospital since July 20 with abdominal pain and was found to have incarcerated hernia related to colostomy. He is now status post exploratory lap and reduction of parastomal hernia with reexploration laparotomy the second day. Postoperatively, he experienced some hypotension, electrolyte imbalance, and had some atelectasis. He has also had some anemia, but he has not required blood transfusion. Patient transferred from the ICU to [facility] floor on August 22 , and clinical status has improved with IV fluids and diuresis. Cardiology was asked to see for cardiac medical management. Patient has been stable from a cardiac standpoint. Plavix and aspirin have been continued. August: Patient is sitting in bedside chair. No acute respiratory distress noted, and he reports that he does feel better but still does not feel "that great." Does appear a bit dyspneic with conversation. No chest pain or tightness. Appetite is fair today. Potassium 2.6 yesterday, and this has been repleted with IV KCl and by mouth supplement. Recheck K+ 3.2 earlier this morning. BP 110/64. He is diuresing well with by mouth Lasix. Previously tachycardic with pulse rate around 120, but much improved now with pulse rate in the 80s after addition of beta-brent. He is being evaluated for possible discharge to swing bed in the next 1-2 days. Current Medications Hydrocodone Bitart/Acetaminophen ([place] 7.5-325) 1 tablet PO Q4H PRN PRN Reason: Pain Moderate (4-7) Last Admin: 08/23/16 14:50 Dose: 1 tablet Al Hydrox/Mg Hydrox/Simethicone (Mylanta Max Strength Liquid) 30 ml PO Q6H PRN PRN Reason: Dyspepsia Last Admin: 08/26/16 14:46 Dose: 30 ml Aspirin () 81 mg PO DAILY [facility] Last Admin: 08/26/16 09:25 Dose: 81 mg Carboxymethylcellulose Sodium (Refresh Celluvisc) 1 drop BOTH EYES TID PRN PRN Reason: Dry Eyes Last Admin: 08/26/16 18:15 Dose: 1 drop Clopidogrel Bisulfate (Plavix) 75 mg PO DAILY [facility] Last Admin: 08/26/16 09:26 Dose: 75 mg Clorazepate Dipotassium (Tranxene) 3.75 mg PO Q6H PRN PRN Reason: Anxiety Last Admin: 08/25/16 21:11 Dose: 3.75 mg Diphenhydramine HCl (Benadryl Inj) 25 mg IV Q4HR PRN PRN Reason: Itching Enoxaparin Sodium (Lovenox) 40 mg SUBCUT Q24H [facility] Last Admin: 08/26/16 15:46 Dose: 40 mg Furosemide (Lasix Tab) 40 mg PO DAILY [facility] Last Admin: 08/26/16 09:25 Dose: 40 mg Gabapentin (Neurontin Cap/Tab) 300 mg PO TID [facility] Last Admin: 08/26/16 21:13 Dose: 300 mg Hydromorphone HCl (Dilaudid Inj) 1 mg IV Q2H PRN PRN Reason: Pain Severe (8-10) Last Admin: 08/26/16 21:19 Dose: 1 mg Hydromorphone HCl (Dilaudid Inj) 0.5 mg IV Q2H PRN PRN Reason: Pain Severe (8-10) Magnesium Sulfate 4 gm/ Premix 100 mls @ 25 mls/hr IV .PER PROTOCOL PRN; Protocol PRN Reason: Per Protocol Magnesium Sulfate 2 gm/ Premix 50 mls @ 25 mls/hr IV .PER PROTOCOL PRN; Protocol PRN Reason: Per Protocol Last Infusion: 08/21/16 08:56 Dose: Infused Potassium Chloride 20 meq/ (Premix) 100 mls @ 50 mls/hr IV .PER PROTOCOL PRN; Protocol PRN Reason: Per Protocol Last Admin: 08/27/16 02:46 Dose: 50 mls/hr Potassium Chloride 10 meq/ (Premix) 100 mls @ 100 mls/hr IV .PER PROTOCOL PRN; Protocol PRN Reason: Per Protocol Last Infusion: 08/26/16 13:20 Dose: Infused Levothyroxine Sodium (Synthroid Tab) 50 mcg PO 0700 [facility] Last Admin: 08/27/16 07:18 Dose: 50 mcg Metoprolol Tartrate (Lopressor Tab) 12.5 mg PO BID [facility] Last Admin: 08/26/16 21:13 Dose: 12.5 mg Montelukast Sodium (Singulair Tab) 10 mg PO DAILY [facility] Last Admin: 08/26/16 09:26 Dose: 10 mg Naloxone HCl (Narcan) 0.04 mg IV Q2M PRN PRN Reason: Opiate Reversal Ondansetron HCl (Zofran Inj) 4 mg IV Q4H PRN PRN Reason: Nausea/Vomiting Last Admin: 08/21/16 16:29 Dose: 4 mg Pantoprazole Sodium (Protonix Inj) 40 mg IV DAILY [facility] Last Admin: 08/26/16 09:27 Dose: 40 mg Potassium Chloride (K Dur) 20 meq PO DAILY [facility] Last Admin: 08/26/16 12:20 Dose: 20 meq Promethazine HCl (Phenergan Inj) 25 mg IM Q4H PRN PRN Reason: Nausea/Vomiting Simvastatin (Zocor) 40 mg PO DAILY [facility] Last Admin: 08/26/16 09:26 Dose: 40 mg Tamsulosin HCl (Flomax) 0.4 mg PO DAILY [facility] Last Admin: 08/26/16 09:25 Dose: 0.4 mg Exam (Progress Note) - Constitutional Vitals: Period Temp Pulse Resp BP Sys/Butler Pulse Ox Last 24 Hr 97.4 F-98.6 F 76-93 16-20 110-132/63-81 95-98 Exam: General: No apparent distress. Pleasant and cooperative. HEENT: Normocephalic, atraumatic. Mucous membranes moist. No jaundice noted. Conjunctiva moist and clear, sclerae anicteric Neck: No JVD/HJR, no thyromegaly or lymphadenopathy noted. No carotid bruit appreciated Cardiac: Regular rate and rhythm, murmur Lungs: Overall clear to auscultation bilaterally. No rhonchi, wheeze, rales, stridor. Abdomen: Hypoactive bowel sounds. Colostomy intact, pink stoma. Dressing dry and intact mid abdomen. AVEL drain with minimal drainage. Musculoskeletal: No fluid collection. Decreased range of motion is noted. Extremities: No clubbing, cyanosis noted. BLE with 1+ pitting edema. Upper extremity pulses 2+. Lower extremity pulses 2+. Capillary refill less than 3 seconds. Skin: No unusual lesions or rashes. No skin breakdown appreciated. Skin warm and dry. Neuro: Awake, alert and oriented 3. Moves all extremities well without hemiparesis or paralysis. No essential tremor is appreciated. Psych: Patient does not appear to be anxious or depressed. Result/EKG - Labs CBC & BMP: 08/24/16 05:38 08/27/16 07:49 Lab Results: I have reviewed the past 24 hour labs Labs: Laboratory Results - last 24 hr 08/26/16 08/27/16 21:04 07:49 Potassium 3.1 L 3.2 L - EKG EKG results: interpreted by me, no acute changes EKG shows: sinus rhythm Quality Measures - VTE Contraindication to Pharmacological VTE Prophylaxis: High Risk of Bleeding Sendy Gongora Michael, MD, personally performed the services described in this documentation, ascribed by Selma Woods RN in my presence, and it is both accurate and complete .
[2016-08-27] MEDS: ENOXAPARIN 40 MG/0.4 ML SYRINGE SUBCUT SCH (14:01)
[2016-08-27] MEDS: HYDROmorphone 2 MG/1 ML VIAL IV PRN (21:13)
[2016-08-28] MEDS: HYDROmorphone 2 MG/1 ML VIAL IV PRN (04:18)
[2016-08-28] MEDS: LEVOTHYROXINE 50 MCG TABLET PO SCH (06:45)
--- NOTE | 2016-08-28 07:36 | Event Note ---
General Surgery Progress Note Chief complaint This patient is a 71-year-old man admitted with a parastomal hernia that was incarcerated resulting in strangulated small bowel treated with reduction of parastomal hernia through exploratory laparotomy with delayed closure of abdomen and pelvis hernia repair on 08/20/2016 Interval history No events overnight. Patient continues to improve. He is being evaluated for swing bed and rehab. Physical exam Afebrile, normal vital signs His chest is clear His heart is regular His abdomen is soft and appropriately tender with normal bowel sounds. No evidence of parastomal hernia. Ostomy is functioning well. Midline incision is clean with no evidence of infection. Labs None new Imaging None Assessment and plan Continue regular diet Transfer to swing bed or rehab once approved Remove delvin next Saturday
[2016-08-28 07:56] LABS: Calcium 7.5 MG/DL (8.5-10.1); Magnesium 2.2 MG/DL (1.8-2.4); Osmolality,Calculated 277.4 MOS/KG (273-304)
--- NOTE | 2016-08-28 08:35 | Pulmonology Progress Note ---
Pulmonary - PN: Subj Interval history: Patient is a 70-year-old white man that presented with an acute abdomen with nausea and vomiting and had an incarcerated ventral hernia. His first operation was a couple nights ago. He was stable on the ventilator and had a relook operation. He had his abdomen closed and came off the ventilator okay. He continues to feel much better and did some walking with physical therapy. He feels like his abdomen is better and is eating more. He has diuresed well and his edema is gone now. Overall he is feeling much better. He will probably go to a swing bed. Exam (Progress Note) - Constitutional Vitals: Period Temp Pulse Resp BP Sys/Butler Pulse Ox Last 24 Hr 98.0 F-98.9 F 81-93 16-20 108-118/65-71 95-97 Exam: General appearance: normal weight, no acute distress (Patient is sitting up and looks much more comfortable and alert. He is not having any respiratory difficulties now.) - Head Head exam: Present: normal inspection, normocephalic - Eye Eye exam: Present: EOMI. Absent: scleral icterus Pupils: Present: PATRICIO - ENT ENT exam: Present: normal exam - Neck Neck exam: Present: normal inspection. Absent: lymphadenopathy, thyromegaly - Respiratory Respiratory exam: Present: He has fairly good breath sounds bilaterally is moving air well and his lungs sound clear. - Cardiovascular Cardiovascular exam: Present: regular rate and rhythm. His heart rate is better. Absent: gallop, systolic murmur - GI/Abdominal GI/Abdominal exam: Present: soft, other (Abdomen is soft and the wound looks okay. He still has some mild tenderness.) - Extremities Exam Extremities exam: He has no leg tenderness and his edema is gone down nicely. - Neurological Exam Neurological exam: Present: alert, he is moving everything well without any weakness. - Psychiatric Psychiatric exam: Present: normal affect - Skin Skin exam: Present: warm, dry Results - Labs CBC & BMP: 08/24/16 05:38 08/28/16 07:12 Assessment and Plan (1) Hypotension Status: Acute Assessment and plan: The patient is doing much better and his blood pressure stable. He is starting to diurese quite well. He remains hemodynamically stable. Current Visit: Yes (2) Pancreatic cancer Status: Chronic Assessment and plan: The patient apparently had a Whipple procedure several years ago. Current Visit: No (3) Incarcerated hernia of abdominal cavity Status: Acute Assessment and plan: Patient comes in with an incarcerated ventral hernia is now postop. He is moving around much better and his abdomen is improved. His appetite is doing better. His wounds are doing well. He is stable and probably go to a swing bed. Current Visit: Yes (4) Acute abdomen Status: Acute Assessment and plan: Patient came in with nausea vomiting and acute abdomen and is now postop. He looks much better than it did Saturday. He is moving around more and eating better. Overall he is much improved. He can go to the swing bed at any time. Current Visit: Yes
[2016-08-28] MEDS: PANTOPRAZOLE 40 MG VIAL IV SCH (09:38)
[2016-08-28] MEDS: ASPIRIN CHEW 81 MG TABLET PO SCH (09:38)
[2016-08-28] MEDS: GABAPENTIN 300 MG CAPSULE PO SCH ×2 (09:39→14:18)
[2016-08-28] MEDS: SIMVASTATIN 40 MG TABLET PO SCH (09:39)
[2016-08-28] MEDS: CLOPIDOGREL 75 MG TABLET PO SCH (09:39)
[2016-08-28] MEDS: TAMSULOSIN 0.4 MG CAPSULE PO SCH (09:39)
[2016-08-28] MEDS: MONTELUKAST 10 MG TABLET PO SCH (09:39)
[2016-08-28] MEDS: FUROSEMIDE 40 MG TABLET PO SCH (09:39)
[2016-08-28] MEDS: METOPROLOL TARTRATE 25 MG TABLET PO SCH (09:39)
[2016-08-28] MEDS: POTASSIUM CHLORIDE 20 MEQ TABLET PO SCH (09:39)
--- NOTE | 2016-08-28 11:27 | Cardiology Progress Note ---
Chuck Gongora Vanessa, RN, am scribing for, and in the presence of, Sly Kaba MD 11:27. Assessment and Plan - Time spent with patient Time spent with patient: Greater than 30 minutes (1) CAD (coronary artery disease) Status: Chronic Assessment and plan: Remains stable. Continue Plavix, ASA, statin. His cardiac status is stable at this time. We are going to drop off of his case. Please call if we can be of further assistance. Current Visit: Yes Qualifiers: Coronary Disease-Associated Artery/Lesion type: [place] artery [place] vs. transplanted heart: [place] heart Associated angina: without angina Qualified Code(s): I25.10 - Atherosclerotic heart disease of [place] coronary artery without angina pectoris (2) Hypokalemia Status: Acute Assessment and plan: Resolved. K+ 4.0 today. Continue PO supplement and monitor electrolytes. Current Visit: Yes (3) Incarcerated hernia of abdominal cavity Status: Acute Assessment and plan: He has had fairly stable perioperative course. Pain is controlled and he is increasing his activity. Will defer primary management to surgical services. Current Visit: Yes (4) Anemia Status: Acute Assessment and plan: This is stable. Current Visit: Yes (5) Sinus tachycardia Status: Resolved Assessment and plan: Resolved. Continue beta-brent. Current Visit: Yes (6) Hypercholesterolemia Status: Chronic Assessment and plan: Statin continued. FLP this admission unremarkable. Current Visit: Yes (7) History of colostomy Status: Chronic Current Visit: Yes (8) Hypothyroid Status: Chronic Assessment and plan: Synthroid has been continued. Current Visit: Yes Cardiology - PN: Subj Interval history: PRIMARY MEND WORKER: DR. GRAVES SUMMARY: Mr. Willams, 70-year-old white male, with past medical history of CAD, dyslipidemia, hypothyroidism. He underwent PCI in April 2016 and received a total of 5 drug-eluting stents to the left anterior descending artery. Dual antiplatelet therapy with Plavix and aspirin since that time. Patient is now admitted to hospital since July 20 with abdominal pain and was found to have incarcerated hernia related to colostomy. He is now status post exploratory lap and reduction of parastomal hernia with reexploration laparotomy the second day. Postoperatively, he experienced some hypotension, electrolyte imbalance, and had some atelectasis. He has also had some anemia, but he has not required blood transfusion. Patient transferred [facility] August 22 , and clinical status has improved with IV fluids and diuresis. Cardiology was asked to see for cardiac medical management. Patient has been stable from a cardiac standpoint. Plavix and aspirin have been continued. August: Mr. Willams is sitting up this morning, and he appears comfortable. He is pleasant, and he is not having any chest pain, shortness of breath. Reports dyspnea with exertion continues to improve. Lower extremity edema has decreased since previous exam. Hypokalemia resolved this morning with K+ 4.0. Magnesium 2.2. He has diuresed well, and renal function remained stable. BP 113/66. Pulse is 70s and regular. Reports his appetite is improved today also. He is in the process of being transferred to swing bed or rehab. From a cardiac standpoint, he is stable for transfer. He can follow up with Dr. Graves at [facility] clinic in 2-4 weeks. Current Medications Hydrocodone Bitart/Acetaminophen ([place] 7.5-325) 1 tablet PO Q4H PRN PRN Reason: Pain Moderate (4-7) Last Admin: 08/23/16 14:50 Dose: 1 tablet Al Hydrox/Mg Hydrox/Simethicone (Mylanta Max Strength Liquid) 30 ml PO Q6H PRN PRN Reason: Dyspepsia Last Admin: 08/26/16 14:46 Dose: 30 ml Aspirin () 81 mg PO DAILY [facility] Last Admin: 08/27/16 11:49 Dose: 81 mg Carboxymethylcellulose Sodium (Refresh Celluvisc) 1 drop BOTH EYES TID PRN PRN Reason: Dry Eyes Last Admin: 08/26/16 18:15 Dose: 1 drop Clopidogrel Bisulfate (Plavix) 75 mg PO DAILY [facility] Last Admin: 08/27/16 11:49 Dose: 75 mg Clorazepate Dipotassium (Tranxene) 3.75 mg PO Q6H PRN PRN Reason: Anxiety Last Admin: 08/25/16 21:11 Dose: 3.75 mg Diphenhydramine HCl (Benadryl Inj) 25 mg IV Q4HR PRN PRN Reason: Itching Enoxaparin Sodium (Lovenox) 40 mg SUBCUT Q24H [facility] Last Admin: 08/27/16 14:01 Dose: 40 mg Furosemide (Lasix Tab) 40 mg PO DAILY [facility] Last Admin: 08/27/16 11:49 Dose: 40 mg Gabapentin (Neurontin Cap/Tab) 300 mg PO TID [facility] Last Admin: 08/27/16 21:12 Dose: 300 mg Hydromorphone HCl (Dilaudid Inj) 1 mg IV Q2H PRN PRN Reason: Pain Severe (8-10) Last Admin: 08/28/16 04:18 Dose: 1 mg Hydromorphone HCl (Dilaudid Inj) 0.5 mg IV Q2H PRN PRN Reason: Pain Severe (8-10) Magnesium Sulfate 4 gm/ Premix 100 mls @ 25 mls/hr IV .PER PROTOCOL PRN; Protocol PRN Reason: Per Protocol Magnesium Sulfate 2 gm/ Premix 50 mls @ 25 mls/hr IV .PER PROTOCOL PRN; Protocol PRN Reason: Per Protocol Last Infusion: 08/21/16 08:56 Dose: Infused Potassium Chloride 20 meq/ (Premix) 100 mls @ 50 mls/hr IV .PER PROTOCOL PRN; Protocol PRN Reason: Per Protocol Last Admin: 08/27/16 02:46 Dose: 50 mls/hr Potassium Chloride 10 meq/ (Premix) 100 mls @ 100 mls/hr IV .PER PROTOCOL PRN; Protocol PRN Reason: Per Protocol Last Admin: 08/27/16 19:32 Dose: 100 mls/hr Levothyroxine Sodium (Synthroid Tab) 50 mcg PO 0700 [facility] Last Admin: 08/28/16 06:45 Dose: 50 mcg Metoprolol Tartrate (Lopressor Tab) 12.5 mg PO BID [facility] Last Admin: 08/27/16 21:12 Dose: 12.5 mg Montelukast Sodium (Singulair Tab) 10 mg PO DAILY [facility] Last Admin: 08/27/16 11:49 Dose: 10 mg Naloxone HCl (Narcan) 0.04 mg IV Q2M PRN PRN Reason: Opiate Reversal Ondansetron HCl (Zofran Inj) 4 mg IV Q4H PRN PRN Reason: Nausea/Vomiting Last Admin: 08/21/16 16:29 Dose: 4 mg Pantoprazole Sodium (Protonix Inj) 40 mg IV DAILY [facility] Last Admin: 08/27/16 11:57 Dose: 40 mg Potassium Chloride (K Dur) 20 meq PO DAILY [facility] Last Admin: 08/27/16 11:49 Dose: 20 meq Promethazine HCl (Phenergan Inj) 25 mg IM Q4H PRN PRN Reason: Nausea/Vomiting Simvastatin (Zocor) 40 mg PO DAILY [facility] Last Admin: 08/27/16 11:49 Dose: 40 mg Tamsulosin HCl (Flomax) 0.4 mg PO DAILY [facility] Last Admin: 08/27/16 11:49 Dose: 0.4 mg Exam (Progress Note) - Constitutional Vitals: Period Temp Pulse Resp BP Sys/Butler Pulse Ox Last 24 Hr 98.0 F-98.9 F 81-93 16-20 108-118/65-71 95-97 Exam: General: No apparent distress. Pleasant and cooperative. HEENT: Normocephalic, atraumatic. Mucous membranes moist. No jaundice noted. Conjunctiva moist and clear, sclerae anicteric Neck: No JVD/HJR, no thyromegaly or lymphadenopathy noted. No carotid bruit appreciated Cardiac: Regular rate and rhythm, murmur Lungs: Overall clear to auscultation bilaterally. No rhonchi, wheeze, rales, stridor. Abdomen: Hypoactive bowel sounds. Colostomy intact, pink stoma. Dressing dry and intact mid abdomen (incision is intact). Musculoskeletal: No fluid collection. Decreased range of motion is noted. Extremities: No clubbing, cyanosis noted. BLE with 1+ pitting edema. Upper extremity pulses 2+. Lower extremity pulses 2+. Capillary refill less than 3 seconds. Skin: No unusual lesions or rashes. No skin breakdown appreciated. Skin warm and dry. Neuro: Awake, alert and oriented 3. Moves all extremities well without hemiparesis or paralysis. No essential tremor is appreciated. Psych: Patient does not appear to be anxious or depressed. Result/EKG - Labs CBC & BMP: 08/24/16 05:38 08/28/16 07:12 Lab Results: I have reviewed the past 24 hour labs Labs: Laboratory Results - last 24 hr 08/27/16 08/28/16 22:25 07:12 Sodium 140 Potassium 3.7 4.0 Chloride 106 Carbon Dioxide 28 Anion Gap 10.0 BUN 6 L Creatinine 0.60 L GFR Calculation 113 BUN/Creatinine Ratio 10.00 Glucose 117 H Calculated Osmolality 277.4 Calcium 7.5 L Magnesium 2.2 - EKG EKG results: interpreted by me, no acute changes Quality Measures - VTE Contraindication to Pharmacological VTE Prophylaxis: High Risk of Bleeding Specialty Discharge - Follow Up or Referrals Follow up with: Archie Graves MD [Physician] - (follow up appointment with dr. graves at [facility] in 2-4 weeks once swing bed/rehab is complete. ) I, Sly Kaba MD, personally performed the services described in this documentation, ascribed by Selma Woods RN in my presence, and it is both accurate and complete 127 .
[2016-08-28 11:42] VITALS: BP 123/69
--- NOTE | 2016-08-28 12:05 | Discharge Summary ---
Hospital Course - Hospital Course Hospital Course: 70-year-old white male with history of coronary artery disease, hypothyroidism, GI cancer, and colostomy due to perforated diverticulitis admitted by Dr. Smalls on 08/19/2016 with abdominal pain and firmness over his parastomal hernia. He was found to have an incarcerated parastomal hernia that was not reducible. Patient was taken to the operating room that day for exploratory laparotomy with reduction of parastomal hernia. He was found to have an incarcerated parastomal hernia with small bowel strangulation. Dr. Martino from pulmonary was consulted for ventilator management. Dr. Carrero from cardiology was also consulted due to Patient having multiple LAD stents placed in April of this year with him being on Plavix and aspirin. Patient was taken back to the operating room on 08/20/2016 for reopening of the recent laparotomy for second look. The small bowel appeared viable at the time and there was no evidence of obstruction or necrotic bowel. Dr. Smalls did a delayed abdominal closure and repaired the parastomal hernia with mesh at that time and he also placed a central line. Patient had a slow improvement due to pain control and debility. Patient is now tolerating a regular diet having bowel movements and ambulating with physical therapy. he is going to be transferred to swing bed for further rehab today. Patient will follow-up with Dr. Smalls in his office in 1 week and he will follow-up with Dr. Graves at the [facility] clinic in 2-4 weeks. Complete discharge instructions were given to the patient. Care coordination, chart review, and completed discharge paperwork took approximately 45 minutes. - Time spent with patient Time with patient DS: Greater than 30 minutes Diagnosis - Discharge Diagnosis (1) Debility Status: Acute (2) History of colostomy Status: Chronic (3) Hypercholesterolemia Status: Chronic (4) Anemia Status: Chronic (5) Incarcerated hernia of abdominal cavity Status: Resolved (6) Acute abdomen Status: Resolved (7) Sinus tachycardia Status: Resolved Specialty Discharge - Follow Up or Referrals Follow up with: Archie Graves MD [Physician] - (follow up appointment with dr. graves at [facility] in 2-4 weeks once swing bed/rehab is complete. ) Discharge Plan - Discharge Data Disposition: Discharge Diet: advance to your usual diet Activity: as per physical therapy Hygiene: may shower Contact your physician if you experience:: fever over 101, Nausea/Vomiting Wound / Dressing Care Instructions: Okay to shower daily with mild soap and water, pat dry, okay to leave open to the air - Discharge Medications New HYDROcodone/ACETAMIN 7.5-325 [Baggs 7.5-325] 1 tablet PO Q4H PRN #30 tablet PRN Reason: Pain Moderate (4-7) Metoprolol Tartrate Tab [Lopressor Tab] 12.5 mg PO BID tablet Continue Gabapentin Cap/Tab [Neurontin Cap/Tab] 300 mg PO TID Clopidogrel [Plavix] 75 mg PO DAILY Aspirin [Ecotrin] 325 mg PO DAILY Simvastatin [Zocor] 40 mg PO DAILY tablet Tamsulosin [Flomax] 0.4 mg PO DAILY capsule Montelukast Tab [Singulair Tab] 10 mg PO DAILY Ranitidine Tab [Zantac Tab] 150 mg PO BID Levothyroxine Tab [Synthroid Tab] 50 mcg PO DAILY Acetaminophen Tab [Tylenol Tab] 650 mg PO Q6H PRN #0 tablet PRN Reason: Pain Mild (1-3) And/Or Fever - Follow Up or Referral Follow Up: Archie Graves MD [Physician] - (follow up appointment with dr. graves at [facility] in 2-4 weeks once swing bed/rehab is complete. ) Nabeel Smalls MD [Physician] - 1 Week - Forms/Instructions Exam - Constitutional Vitals: Period Temp Pulse Resp BP Sys/Butler Pulse Ox Last 24 Hr 97.6 F-98.9 F 81-104 16-20 108-123/65-71 95-98 Exam: 70-year-old white male, no acute distress, alert and oriented Chest clear CV regular rate and rhythm Abdomen soft, appropriately tender, incisions look good Extremities no edema Discharge Results Labs on day of discharge: Labs from last 24 hours 08/28/16 08/27/16 07:12 22:25 Sodium 140 Potassium 4.0 3.7 Chloride 106 Carbon Dioxide 28 Anion Gap 10.0 BUN 6 L Creatinine 0.60 L GFR Calculation 113 BUN/Creatinine Ratio 10.00 Glucose 117 H Calculated Osmolality 277.4 Calcium 7.5 L Magnesium 2.2 DS: Provider Date of admission: 08/19/16 19:28 Primary care physician: Best Price MD Attending physician on admission: Nabeel Smalls MD Consults: 08/19/16 21:28 Consult to Physician [CONS] Routine Comment: Consulting Provider: Consult to Specialist Group: Pulmonology When should Consulting Provider be notified: Now Consult to Physician [CONS] Routine Comment: established patient, stents in 04/2016 Consulting Provider: Consult to Specialist Group: Cardiology When should Consulting Provider be notified: In am 08/19/16 22:39 Consult to Dietitian [CONS] Routine Reason for Dietitian: Dietary Consult 08/23/16 11:18 Consult to Physical Therapy [CONS] Routine Reason for Physical Therapy: Evaluate and Treat 08/27/16 08:22 Consult to Case Mgmt/Social Srvs [CONS] Routine Reason for Case Mgmt/Social Srvs: Discharge Planning Swingbed/SNF/[facility] Home Health Consult Comment: request [facility] Discharging clinician: AMBER Costello Expected date of discharge: 08/28/16
[2016-08-28] MEDS: ALUMINUM/MAGNES/SIMETH MAX STR 30 ML UDCUP PO PRN (13:25)
== END 2016-08-28 14:30 | disposition swing bed (61) | DRG 336 ==
LOC: N.ED 17:58 → N.EDINP 19:28 → N.ICU 19:40 → N.3E 08-23 10:58
PROVIDERS: ADMIT Surgery; ATTEND Surgery

== ENCOUNTER 2017-03-27 11:10 | Inpatient (IN) ==
[2017-03-27] MEDS ORDERED: SODIUM CHLORIDE 0.9% 1,000 ML IV STA ×2 (11:56→12:09)
[2017-03-27 12:59] LABS: Basophils % 0.3 % (0.0-0.8); Eosinophils % 0.1 % (0.00-10.9); Hematocrit 40.2 VOL% (42.0-52.0); Hemoglobin 13.2 GM/DL (14.0-18.0); Immature Granulocytes % 0.6 %; Immature Granulocytes Absolute 0.09 #; Lymphocytes # 0.5 10*3/uL (1.4-4.0); Lymphocytes % 3.3 % (21.2-54.2); Mean Corpuscular HGB Conc 32.8 GM/DL (32-36); Mean Corpuscular Hemoglobin 29 PG (27-34); Mean Corpuscular Volume 87.2 FL (87-102); Mean Platelet Volume 9.8 FL (9.6-12.0); Monocytes # 0.9 10*3/uL (0.11-0.8); Monocytes % 6.2 % (1.7-12.7); Neutrophils # 12.9 10*3/uL (1.4-7.4); Neutrophils % 89.5 % (38.7-73.9); Platelet Count 218 T/CUMM (130-400); Red Blood Count 4.61 MC/CUMM (3.8-5.5); Red Cell Distribution Width 14.5 % (9.3-17.3); White Blood Count 14.4 T/CUMM (4-12)
[2017-03-27 13:02] LABS: INR 1.1; PT Patient Result 11.7 SECS
[2017-03-27 13:17] LABS: Albumin 3.6 G/DL (3.4-5.0); Bilirubin,Total 0.5 MG/DL (0.2-1.0); Calcium 8.9 MG/DL (8.5-10.1); Potassium 3.9 MMOL/L (3.5-5.1); Total Protein 7.8 G/DL (6.4-8.3)
[2017-03-27 13:25] LABS: Calcium 8.9 MG/DL (8.5-10.1); Osmolality,Calculated 278.7 MOS/KG (273-304); Potassium 4.1 MMOL/L (3.5-5.1)
[2017-03-27] MEDS ORDERED: PIPERACILLIN/TAZOBACTAM 3,375 MG in SODIUM CHLORIDE 0.9% 100 ML IV STA (13:26)
[2017-03-27] MEDS ORDERED: SODIUM CHLORIDE 0.9% 100 ML IV ONE (13:40)
[2017-03-27] MEDS ORDERED: PIPERACILLIN/TAZOBACTAM 3,375 MG VIAL IV ONE (13:40)
[2017-03-27 13:54] LABS: Lactic Acid 0.7 MMOL/L (0.4-2.0)
[2017-03-27 14:08] LABS: Amorphous Crystals,Urine Occasional /HPF (Few); Apearance,Urine Slightly Hazy (Clear); Bilirubin,Urine Negative (Negative); Blood, Urine Negative (Negative); Glucose,Urine (UA) Negative (Negative); Ketones,Urine Negative (Negative); Mucus,Urine Occasional /LPF (Occasional); Nitrite,Urine Negative (Negative); Protein,Urine 30 MG/DL; RBC,Urine 3 /HPF (0-4); Squamous Epithelial Cell,Urine Occasional /HPF (0-10); Urine Color Yellow (Yellow); Urine Specific Gravity 1.012 (1.001-1.035); Urine Urobilinogen < 2.0 EU/DL (0.2-1.0); WBC,Urine <1 /HPF (0-6)
[2017-03-27] MEDS ORDERED: ACETAMINOPHEN 325 MG TABLET PO PRN (14:37)
[2017-03-27] MEDS ORDERED: ONDANSETRON 4 MG/2 ML VIAL IV PRN (14:37)
[2017-03-27 15:18] LABS: Lymphocytes 6 % (20-55); Platelet Estimate Normal; Segmented Neutrophils 90 % (50-85); Total Cells Counted 100
[2017-03-27] MEDS ORDERED: ACETAMINOPHEN 500 MG TABLET ONE (17:49)
[2017-03-27] MEDS ORDERED: ACETAMINOPHEN 500 MG TABLET PO ONE (17:53)
[2017-03-27] MEDS: SODIUM CHLORIDE 0.9% 1,000 ML IV SCH ×2 (21:44→22:08)
[2017-03-27] MEDS: PIPERACILLIN/TAZOBACTAM 3,375 MG in SODIUM CHLORIDE 0.9% 100 ML IV SCH (21:44)
[2017-03-28] MEDS: PIPERACILLIN/TAZOBACTAM 3,375 MG in SODIUM CHLORIDE 0.9% 100 ML IV SCH ×3 (06:21→22:17)
[2017-03-28 06:32] LABS: Basophils % 0.3 % (0.0-0.8); Eosinophils % 0.5 % (0.00-10.9); Hematocrit 37.1 VOL% (42.0-52.0); Hemoglobin 12.2 GM/DL (14.0-18.0); Immature Granulocytes % 0.3 %; Immature Granulocytes Absolute 0.02 #; Lymphocytes # 0.9 10*3/uL (1.4-4.0); Lymphocytes % 11.5 % (21.2-54.2); Mean Corpuscular HGB Conc 32.9 GM/DL (32-36); Mean Corpuscular Hemoglobin 29 PG (27-34); Mean Corpuscular Volume 87.7 FL (87-102); Mean Platelet Volume 10.1 FL (9.6-12.0); Monocytes # 0.5 10*3/uL (0.11-0.8); Monocytes % 6.8 % (1.7-12.7); Neutrophils % 80.6 % (38.7-73.9); Platelet Count 184 T/CUMM (130-400); Red Blood Count 4.23 MC/CUMM (3.8-5.5); Red Cell Distribution Width 14.8 % (9.3-17.3); White Blood Count 7.4 T/CUMM (4-12)
[2017-03-28 06:55] LABS: Calcium 7.9 MG/DL (8.5-10.1); Osmolality,Calculated 277.4 MOS/KG (273-304); Potassium 4.2 MMOL/L (3.5-5.1)
[2017-03-28] MEDS: SODIUM CHLORIDE 0.9% 1,000 ML IV SCH ×3 (08:03→22:17)
[2017-03-29] MEDS: MELATONIN 3 MG TABLET PO PRN ×2 (00:36→21:03)
[2017-03-29] MEDS: PIPERACILLIN/TAZOBACTAM 3,375 MG in SODIUM CHLORIDE 0.9% 100 ML IV SCH ×4 (06:21→22:00)
[2017-03-29] MEDS: SODIUM CHLORIDE 0.9% 1,000 ML IV SCH ×3 (14:34→22:01)
[2017-03-30] MEDS: PIPERACILLIN/TAZOBACTAM 3,375 MG in SODIUM CHLORIDE 0.9% 100 ML IV SCH (06:24)
[2017-03-30 09:43] VITALS: BP 133/77
[2017-03-30] MEDS ORDERED: LEVOFLOXACIN 500 MG TABLET PO SCH (11:00)
[2017-03-30] MEDS ORDERED: metroNIDAZOLE 500 MG TABLET PO SCH (15:00)
== END 2017-03-30 11:32 | disposition home or self-care (01) | DRG 872 ==
LOC: N.ED 11:10 → N.EDINP 13:45 → SUATTDRO 13:45 → N.EDINP 18:15 → N.5E 18:44
PROVIDERS: ADMIT Internal Medicine; ATTEND Hospitalist

== ENCOUNTER 2018-12-01 10:09 | Inpatient (IN) ==
[2018-12-01] MEDS ORDERED: LOPERAMIDE 2 MG CAPSULE PO STA (10:43)
[2018-12-01] MEDS ORDERED: SODIUM CHLORIDE 0.9% 1,000 ML IV STA ×2 (10:43→13:01)
[2018-12-01] MEDS ORDERED: ONDANSETRON 4 MG/2 ML VIAL IV STA (10:43)
[2018-12-01 11:24] LABS: Basophils # 0.1 10*3/uL (0.0-0.2); Basophils % 0.4 % (0.0-0.8); Eosinophils # 0.1 10*3/uL (0.0-0.87); Eosinophils % 1.2 % (0.00-10.9); Hematocrit 37.1 VOL% (42.0-52.0); Hemoglobin 12.4 GM/DL (14.0-18.0); Immature Granulocytes % 0.9 %; Lymphocytes # 1.6 10*3/uL (1.4-4.0); Lymphocytes % 14.1 % (21.2-54.2); Mean Corpuscular HGB Conc 33.4 GM/DL (32-36); Mean Corpuscular Volume 89.8 FL (87-102); Mean Platelet Volume 9.7 FL (9.6-12.0); Monocytes % 6.9 % (1.7-12.7); Neutrophils % 76.5 % (38.7-73.9); Platelet Count 272 T/CUMM (130-400); Red Blood Count 4.13 MC/CUMM (3.8-5.5); Red Cell Distribution Width 13.7 % (9.3-17.3); White Blood Count 11.4 T/CUMM (4-12)
[2018-12-01 11:41] LABS: Alanine Aminotransferase 26 U/L (16-61); Albumin 3.4 G/DL (3.4-5.0); Alkaline Phosphatase 165 U/L (45-117); Aspartate Amino Transferase 18 U/L (0-37); Bilirubin,Total < 0.39 MG/DL (0.2-1.0); Blood Urea Nitrogen 33 MG/DL (7-18); Calcium 9.7 MG/DL (8.5-10.1); Estimated Glom Filtration Rate 22 ML/MIN; Glucose 208 MG/DL (74-106); Osmolality,Calculated 280.2 MOS/KG (273-304); Total Protein 8.3 G/DL (6.4-8.3)
[2018-12-01] MEDS ORDERED: ONDANSETRON 4 MG/2 ML VIAL IV PRN (13:48)
[2018-12-01] MEDS: GABAPENTIN 300 MG CAPSULE PO SCH ×2 (15:21→20:36)
[2018-12-01] MEDS: SODIUM CHLORIDE 0.9% 1,000 ML IV SCH (15:21)
[2018-12-01 18:17] LABS: Cancer Antigen 19-9 49.6 U/ML (0-37); Prostate Specific Antigen Diag 31.3 NG/ML (0-4)
[2018-12-01] MEDS: MONTELUKAST 10 MG TABLET PO SCH (20:35)
[2018-12-01] MEDS: SIMVASTATIN 40 MG TABLET PO SCH (20:35)
[2018-12-01] MEDS ORDERED: ENOXAPARIN 30 MG/0.3 ML SYRINGE SUBCUT SCH (21:00)
[2018-12-02] MEDS: SODIUM CHLORIDE 0.9% 1,000 ML IV SCH ×2 (02:20→15:31)
[2018-12-02 05:46] LABS: Basophils % 0.5 % (0.0-0.8); Eosinophils # 0.2 10*3/uL (0.0-0.87); Eosinophils % 3.3 % (0.00-10.9); Hematocrit 31.7 VOL% (42.0-52.0); Immature Granulocytes % 1.6 %; Immature Granulocytes Absolute 0.09 #; Lymphocytes # 1.5 10*3/uL (1.4-4.0); Lymphocytes % 25.8 % (21.2-54.2); Mean Corpuscular HGB Conc 32.2 GM/DL (32-36); Mean Corpuscular Volume 92.4 FL (87-102); Mean Platelet Volume 9.4 FL (9.6-12.0); Neutrophils % 59.8 % (38.7-73.9); Platelet Count 233 T/CUMM (130-400); Red Blood Count 3.43 MC/CUMM (3.8-5.5); Red Cell Distribution Width 13.8 % (9.3-17.3)
[2018-12-02 05:47] LABS: Hemoglobin 10.2 GM/DL (14.0-18.0); White Blood Count 5.7 T/CUMM (4-12)
[2018-12-02] MEDS: LEVOTHYROXINE 50 MCG TABLET PO SCH (05:48)
[2018-12-02 06:10] LABS: Calcium 8.2 MG/DL (8.5-10.1); Osmolality,Calculated 287.1 MOS/KG (273-304); Risk Ratio 8.62; Thyroid Stimulating Hormone 6.86 uIU/ml (0.358-3.74); VLDL CHOLESTEROL 46.6 MG/DL
[2018-12-02] MEDS: GABAPENTIN 300 MG CAPSULE PO SCH ×3 (09:24→20:37)
[2018-12-02] MEDS: ASPIRIN EC 325 MG TABLET PO SCH (09:24)
[2018-12-02] MEDS: TAMSULOSIN 0.4 MG CAPSULE PO SCH (09:24)
[2018-12-02] MEDS: PANTOPRAZOLE 40 MG TABLET PO SCH (09:24)
[2018-12-02] MEDS: CLOPIDOGREL 75 MG TABLET PO SCH (09:24)
[2018-12-02] MEDS ORDERED: ACETAMINOPHEN 325 MG TABLET PO PRN (15:19)
[2018-12-02] MEDS ORDERED: SIMETHICONE CHEW 125 MG TABLET PO PRN (20:07)
[2018-12-02] MEDS: SIMVASTATIN 40 MG TABLET PO SCH (20:37)
[2018-12-02] MEDS: MONTELUKAST 10 MG TABLET PO SCH (20:37)
[2018-12-02] MEDS ORDERED: ENOXAPARIN 40 MG/0.4 ML SYRINGE SUBCUT SCH (21:00)
[2018-12-03] MEDS: SODIUM CHLORIDE 0.9% 1,000 ML IV SCH ×2 (01:10→12:34)
[2018-12-03 05:57] LABS: Basophils % 0.7 % (0.0-0.8); Eosinophils # 0.2 10*3/uL (0.0-0.87); Eosinophils % 3.4 % (0.00-10.9); Hematocrit 31.4 VOL% (42.0-52.0); Hemoglobin 9.9 GM/DL (14.0-18.0); Immature Granulocytes % 3.8 %; Immature Granulocytes Absolute 0.21 #; Lymphocytes # 1.2 10*3/uL (1.4-4.0); Lymphocytes % 22.3 % (21.2-54.2); Mean Corpuscular HGB Conc 31.5 GM/DL (32-36); Mean Corpuscular Volume 93.7 FL (87-102); Mean Platelet Volume 9.1 FL (9.6-12.0); Monocytes % 8.5 % (1.7-12.7); Neutrophils % 61.3 % (38.7-73.9); Platelet Count 220 T/CUMM (130-400); Red Blood Count 3.35 MC/CUMM (3.8-5.5); Red Cell Distribution Width 13.6 % (9.3-17.3); White Blood Count 5.6 T/CUMM (4-12)
[2018-12-03 06:14] LABS: Calcium 7.5 MG/DL (8.5-10.1); Osmolality,Calculated 287.8 MOS/KG (273-304)
[2018-12-03] MEDS: LEVOTHYROXINE 50 MCG TABLET PO SCH (07:02)
[2018-12-03] MEDS ORDERED: MAGNESIUM SULF RIDER 4 GM in PREMIX 1 EACH IV PRN (08:04)
[2018-12-03] MEDS ORDERED: MAGNESIUM SULF RIDER 2 GM in PREMIX 1 EACH IV PRN (08:04)
[2018-12-03 08:06] LABS: INR 1.1; PT Patient Result 11.7 SECS (9.6-12.2)
[2018-12-03] MEDS: TAMSULOSIN 0.4 MG CAPSULE PO SCH (08:16)
[2018-12-03] MEDS: CLOPIDOGREL 75 MG TABLET PO SCH (08:16)
[2018-12-03] MEDS: PANTOPRAZOLE 40 MG TABLET PO SCH (08:16)
[2018-12-03] MEDS: ASPIRIN EC 325 MG TABLET PO SCH (08:16)
[2018-12-03] MEDS ORDERED: GABAPENTIN 300 MG CAPSULE PO SCH (09:00)
[2018-12-03 11:48] VITALS: BP 127/73
== END 2018-12-03 12:55 | disposition home health service (06) | DRG 683 ==
LOC: N.ED 10:09 → N.EDINP 13:48 → N.2E 14:06
PROVIDERS: ADMIT Internal Medicine; ATTEND Internal Medicine

== ENCOUNTER 2019-12-01 12:52 | Inpatient (IN) ==
[2019-12-01] MEDS ORDERED: NITROGLYCERIN 2% OINT 1 INCH/GM PACK TOP STA (13:22)
[2019-12-01] MEDS ORDERED: ASPIRIN 325 MG TABLET PO STA (13:22)
[2019-12-01] MEDS ORDERED: ENOXAPARIN 100 MG/ML SYRINGE SUBCUT STA (13:22)
[2019-12-01] MEDS ORDERED: ALUM/MAG/SIMETH/LIDO VISC 1:1 30 ML BOTTLE PO STA (13:22)
[2019-12-01 13:30] LABS: Basophils % 0.3 % (0.0-0.8); Eosinophils # 0.1 10*3/uL (0.0-0.87); Eosinophils % 0.7 % (0.00-10.9); Hematocrit 37.6 VOL% (42.0-52.0); Hemoglobin 13.1 GM/DL (14.0-18.0); Immature Granulocytes % 0.6 %; Immature Granulocytes Absolute 0.05 #; Lymphocytes # 0.9 10*3/uL (1.4-4.0); Lymphocytes % 9.8 % (21.2-54.2); Mean Corpuscular HGB Conc 34.8 GM/DL (32-36); Mean Corpuscular Volume 93.8 FL (87-102); Mean Platelet Volume 9.9 FL (9.6-12.0); Monocytes % 7.3 % (1.7-12.7); Neutrophils % 81.3 % (38.7-73.9); Platelet Count 200 T/CUMM (130-400); Red Blood Count 4.01 MC/CUMM (3.8-5.5); Red Cell Distribution Width 13.4 % (9.3-17.3); White Blood Count 8.7 T/CUMM (4-12)
[2019-12-01 13:39] LABS: INR 1.1; PT Patient Result 11.7 SECS (9.8-11.9); Partial Thromboplastin Time 26.5 SECS (23.9-33.8)
[2019-12-01 13:44] LABS: Albumin 3.5 G/DL (3.4-5.0); Bilirubin,Total 0.6 MG/DL (0.2-1.0); Osmolality,Calculated 271.2 MOS/KG (273-304); Total Protein 7.4 G/DL (6.4-8.3)
[2019-12-01 14:08] LABS: Bilirubin,Urine Negative (Negative); Blood, Urine Moderate mg/dL (Negative); Glucose,Urine (UA) Negative (Negative); Hyaline Casts,Urine 1 /LPF (0-3); Ketones,Urine Negative (Negative); Nitrite,Urine Negative (Negative); Protein,Urine 30 MG/DL; RBC,Urine 13 /HPF (0-4); Urine Appearance CLEAR (Clear); Urine Color Amber (Yellow); Urine Specific Gravity 1.028 (1.001-1.035); Urine Urobilinogen < 2.0 EU/DL (0.2-1.0); WBC,Urine 2 /HPF (0-6)
[2019-12-01 14:12] LABS: Barbiturates Screen,Urine Negative (Negative); Benzodiazepines Screen,Urine Negative (Negative); Cannabinoid Screen,Urine Negative (Negative); Opiate Screen,Urine Negative (Negative); Phencyclidine Screen,Urine Negative (Negative)
[2019-12-01] MEDS ORDERED: LOPERAMIDE 2 MG CAPSULE PO PRN (15:05)
[2019-12-01] MEDS ORDERED: NITROGLYCERIN SL 0.4 MG TABLET SL PRN (15:05)
[2019-12-01] MEDS ORDERED: hydrALAZINE 20 MG/1 ML VIAL IV PRN (15:20)
[2019-12-01] MEDS ORDERED: GLUCAGON 1 MG VIAL IM PRN (15:20)
[2019-12-01] MEDS ORDERED: ZALEPLON 5 MG CAPSULE PO PRN (15:20)
[2019-12-01] MEDS ORDERED: diphenhydrAMINE CAP 25 MG CAPSULE PO PRN (15:20)
[2019-12-01] MEDS ORDERED: BISACODYL 5 MG TABLET PO PRN (15:20)
[2019-12-01] MEDS ORDERED: ONDANSETRON 4 MG/2 ML VIAL IV PRN (15:20)
[2019-12-01] MEDS ORDERED: ACETAMINOPHEN 325 MG TABLET PO PRN (15:20)
[2019-12-01] MEDS ORDERED: LACTULOSE 20 GM/30 ML UDCUP PO PRN (15:20)
[2019-12-01] MEDS ORDERED: guaiFENesin/DM ER 600-30 MG TABLET PO PRN (15:20)
[2019-12-01] MEDS ORDERED: SIMETHICONE CHEW 125 MG TABLET PO PRN (15:20)
[2019-12-01] MEDS ORDERED: DEXTROSE 50% 25 GM/50 ML VIAL IV PRN (15:20)
[2019-12-01] MEDS ORDERED: DOCUSATE SODIUM 100 MG CAPSULE PO PRN (15:20)
[2019-12-01] MEDS: INSULIN REGULAR 100 UNIT/ML SUBCUT SCH ×2 (17:54→21:17)
[2019-12-01] MEDS ORDERED: NITROGLYCERIN 2% OINT 1 INCH/GM PACK TOP ONE (19:00)
[2019-12-01] MEDS ORDERED: MORPHINE 4 MG/1 ML VIAL IV PRN (19:37)
[2019-12-01] MEDS ORDERED: METOPROLOL TARTRATE 25 MG TABLET PO ONE (19:38)
[2019-12-01] MEDS ORDERED: ENOXAPARIN 80 MG/0.8 ML SYRINGE SUBCUT SCH (20:00)
[2019-12-01] MEDS ORDERED: ENOXAPARIN 40 MG/0.4 ML SYRINGE SUBCUT SCH (21:00)
[2019-12-01] MEDS: GABAPENTIN 300 MG CAPSULE PO SCH (21:17)
[2019-12-01] MEDS: MONTELUKAST 10 MG TABLET PO SCH (21:17)
[2019-12-02] MEDS ORDERED: NITROGLYCERIN 2% OINT 1 INCH/GM PACK TOP SCH
[2019-12-02] MEDS: NITROGLYCERIN 2% OINT 1 INCH/GM PACK TOP SCH ×4 (01:01→17:46)
[2019-12-02 01:04] LABS: Basophils % 0.5 % (0.0-0.8); Eosinophils # 0.1 10*3/uL (0.0-0.87); Hematocrit 35.5 VOL% (42.0-52.0); Hemoglobin 12.1 GM/DL (14.0-18.0); Immature Granulocytes % 0.4 %; Immature Granulocytes Absolute 0.03 #; Lymphocytes # 1.4 10*3/uL (1.4-4.0); Lymphocytes % 16.9 % (21.2-54.2); Mean Corpuscular HGB Conc 34.1 GM/DL (32-36); Mean Corpuscular Volume 94.2 FL (87-102); Mean Platelet Volume 9.8 FL (9.6-12.0); Monocytes % 10.4 % (1.7-12.7); Neutrophils % 70.8 % (38.7-73.9); Platelet Count 210 T/CUMM (130-400); Red Blood Count 3.77 MC/CUMM (3.8-5.5); Red Cell Distribution Width 13.2 % (9.3-17.3)
[2019-12-02] MEDS ORDERED: ENOXAPARIN 80 MG/0.8 ML SYRINGE SUBCUT SCH (01:30)
[2019-12-02 01:34] LABS: Albumin 3.2 G/DL (3.4-5.0); Bilirubin,Total 0.6 MG/DL (0.2-1.0); Calcium 8.5 MG/DL (8.5-10.1); Osmolality,Calculated 275.8 MOS/KG (273-304); Risk Ratio 3.13; Thyroid Stimulating Hormone 4.17 uIU/ml (0.358-3.74); Total Protein 6.9 G/DL (6.4-8.3); VLDL CHOLESTEROL 23.2 MG/DL
[2019-12-02] MEDS: LEVOTHYROXINE 50 MCG TABLET PO SCH (06:10)
[2019-12-02] MEDS: INSULIN REGULAR 100 UNIT/ML SUBCUT SCH ×4 (08:39→21:49)
[2019-12-02] MEDS ORDERED: CLOPIDOGREL 75 MG TABLET PO SCH (09:00)
[2019-12-02] MEDS: ASPIRIN 325 MG TABLET PO SCH (09:34)
[2019-12-02] MEDS: TAMSULOSIN 0.4 MG CAPSULE PO SCH (09:36)
[2019-12-02] MEDS: GABAPENTIN 300 MG CAPSULE PO SCH ×3 (09:36→21:49)
[2019-12-02] MEDS: LORATADINE 10 MG TABLET PO SCH (09:36)
[2019-12-02] MEDS: PANTOPRAZOLE 40 MG TABLET PO SCH (09:37)
[2019-12-02] MEDS ORDERED: MAGNESIUM SULF RIDER 2 GM in PREMIX 1 EACH IV PRN (09:55)
[2019-12-02] MEDS ORDERED: POTASSIUM CHLORIDE RIDER 10 MEQ in PREMIX 1 EACH IV PRN (09:55)
[2019-12-02] MEDS ORDERED: SODIUM CHLORIDE 0.45% 1,000 ML IV SCH (10:00)
[2019-12-02] MEDS: METOPROLOL TARTRATE 25 MG TABLET PO SCH ×2 (10:15→21:49)
[2019-12-02] MEDS: TRIAMTERENE/HCTZ 37.5-25 MG TABLET PO SCH (10:16)
[2019-12-02] MEDS ORDERED: LIDOCAINE 1% 20 ML VIAL ONE (12:48)
[2019-12-02] MEDS ORDERED: DIAZEPAM 5 MG TABLET PO ONE (13:00)
[2019-12-02] MEDS ORDERED: diphenhydrAMINE CAP 25 MG CAPSULE PO ONE (13:00)
[2019-12-02] MEDS ORDERED: MIDAZOLAM 2 MG/2 ML VIAL ONE (15:19)
[2019-12-02] MEDS ORDERED: fentaNYL 100 MCG/2 ML VIAL ONE (15:19)
[2019-12-02] MEDS ORDERED: HEPARIN 5,000 UNIT/1 ML VIAL ONE (15:56)
[2019-12-02] MEDS: MONTELUKAST 10 MG TABLET PO SCH (21:49)
[2019-12-02] MEDS: ROSUVASTATIN 20 MG TABLET PO SCH (21:49)
[2019-12-03] MEDS: NITROGLYCERIN 2% OINT 1 INCH/GM PACK TOP SCH ×3 (00:26→12:14)
[2019-12-03] MEDS: LEVOTHYROXINE 50 MCG TABLET PO SCH (06:12)
[2019-12-03 06:19] LABS: Basophils % 0.6 % (0.0-0.8); Eosinophils # 0.1 10*3/uL (0.0-0.87); Eosinophils % 1.6 % (0.00-10.9); Hematocrit 36.3 VOL% (42.0-52.0); Hemoglobin 12.6 GM/DL (14.0-18.0); Immature Granulocytes % 0.5 %; Immature Granulocytes Absolute 0.03 #; Lymphocytes % 15.8 % (21.2-54.2); Mean Corpuscular HGB Conc 34.7 GM/DL (32-36); Mean Corpuscular Volume 93.3 FL (87-102); Mean Platelet Volume 9.8 FL (9.6-12.0); Monocytes % 11.9 % (1.7-12.7); Neutrophils % 69.6 % (38.7-73.9); Platelet Count 205 T/CUMM (130-400); Red Blood Count 3.89 MC/CUMM (3.8-5.5); Red Cell Distribution Width 13.4 % (9.3-17.3); White Blood Count 6.3 T/CUMM (4-12)
[2019-12-03 06:44] LABS: Bilirubin,Total 0.7 MG/DL (0.2-1.0); Calcium 8.5 MG/DL (8.5-10.1); Osmolality,Calculated 276.7 MOS/KG (273-304); Total Protein 6.7 G/DL (6.4-8.3)
[2019-12-03] MEDS: GABAPENTIN 300 MG CAPSULE PO SCH ×3 (08:36→22:10)
[2019-12-03] MEDS: TAMSULOSIN 0.4 MG CAPSULE PO SCH (08:36)
[2019-12-03] MEDS: TRIAMTERENE/HCTZ 37.5-25 MG TABLET PO SCH (08:37)
[2019-12-03] MEDS: LORATADINE 10 MG TABLET PO SCH (08:37)
[2019-12-03] MEDS: METOPROLOL TARTRATE 25 MG TABLET PO SCH ×2 (08:37→22:06)
[2019-12-03] MEDS: ASPIRIN 325 MG TABLET PO SCH (08:38)
[2019-12-03] MEDS: INSULIN REGULAR 100 UNIT/ML SUBCUT SCH ×4 (08:38→22:11)
[2019-12-03] MEDS: PANTOPRAZOLE 40 MG TABLET PO SCH (08:38)
[2019-12-03 09:13] LABS: Albumin 3.4 G/DL (3.4-5.0); Bilirubin,Direct 0.18 MG/DL (0.0-0.20); Bilirubin,Indirect 0.5 MG/DL (0.0-1.0); Bilirubin,Total 0.7 MG/DL (0.2-1.0); Total Protein 7.5 G/DL (6.4-8.3)
[2019-12-03] MEDS ORDERED: GLUCAGON 1 MG VIAL IM PRN (09:21)
[2019-12-03] MEDS ORDERED: DEXTROSE 50% 25 GM/50 ML VIAL IV PRN (09:21)
[2019-12-03 10:03] LABS: ABG Base Excess -3.1 MMOL/L (-2.5-2.5); ABG HCO3 21.8 MMOL/L (20-26); ABG Oxygen Saturation 96.7 % (95-100); ABG PCO2 33.6 MM HG (35-48); ABG PH 7.401 (7.35-7.45); ABG PO2 82.7 MM HG (80-95); ABG TCO2 18.3 MMOL/L (23-27); Allen Test Positive
[2019-12-03] MEDS: CHLORHEXIDINE 4% SOLN 118 ML BOTTLE TOP SCH ×2 (15:00→22:11)
[2019-12-03] MEDS ORDERED: SIMETHICONE CHEW 80 MG TABLET PO SCH (15:01)
[2019-12-03] MEDS: SIMETHICONE CHEW 80 MG TABLET PO SCH ×2 (17:32→22:06)
[2019-12-03] MEDS ORDERED: ENOXAPARIN 30 MG/0.3 ML SYRINGE SUBCUT SCH (21:00)
[2019-12-03] MEDS: ROSUVASTATIN 20 MG TABLET PO SCH (22:05)
[2019-12-03] MEDS: RIFAXIMIN 550 MG TABLET PO SCH (22:06)
[2019-12-03] MEDS: MONTELUKAST 10 MG TABLET PO SCH (22:06)
[2019-12-03] MEDS: CHLORHEXIDINE 0.12% ORAL RINSE 60 ML BOTTLE SWISH/SPIT SCH (22:10)
[2019-12-04] MEDS ORDERED: PAPAVERINE 60 MG/2 ML VIAL ONE (04:22)
[2019-12-04] MEDS ORDERED: VANCOMYCIN 1,000 MG VIAL ONE (04:23)
[2019-12-04] MEDS ORDERED: VANCOMYCIN 500 MG VIAL ONE (04:23)
[2019-12-04] MEDS ORDERED: CEFUROXIME INJ 1,500 MG in SYRINGE 1 EACH IV ONE (05:00)
[2019-12-04] MEDS ORDERED: FAMOTIDINE 20 MG TABLET PO ONE (05:30)
[2019-12-04] MEDS ORDERED: CALCIUM CHLORIDE 1,000 MG/10 ML VIAL IV ONE (05:39)
[2019-12-04] MEDS ORDERED: HEPARIN/NACL 0.9% 2 UNITS/ML 500 ML IV ONE (05:39)
[2019-12-04] MEDS ORDERED: SUFentanil 250 MCG/5 ML AMP ONE (05:39)
[2019-12-04] MEDS ORDERED: MIDAZOLAM 10 MG/2 ML VIAL ONE (05:39)
[2019-12-04] MEDS ORDERED: PHENYLEPHRINE DRIP 20 MG/250 ML PREMIX IV ONE (05:39)
[2019-12-04] MEDS ORDERED: LIDOCAINE 2% 5 ML VIAL ONE ×2 (05:39→10:57)
[2019-12-04] MEDS ORDERED: ETOMIDATE 40 MG/20 ML VIAL IV ONE (05:40)
[2019-12-04] MEDS ORDERED: SODIUM CHLORIDE 0.9% 1,000 ML IV ONE (05:40)
[2019-12-04] MEDS ORDERED: VECURONIUM 10 MG VIAL IV ONE (05:40)
[2019-12-04] MEDS ORDERED: SODIUM CHLORIDE 0.9% 250 ML IV ONE (05:40)
[2019-12-04] MEDS ORDERED: LACTATED RINGERS 1,000 ML IV ONE (05:40)
[2019-12-04] MEDS ORDERED: NITROGLYCERIN DRIP 50 MG/250 ML BOTTLE IV ONE (05:40)
[2019-12-04] MEDS ORDERED: AMINOCAPROIC ACID 5,000 MG/20 ML VIAL ONE (05:40)
[2019-12-04] MEDS ORDERED: ePHEDrine 50 MG/ML VIAL ONE (05:40)
[2019-12-04 05:47] LABS: Basophils % 0.3 % (0.0-0.8); Eosinophils # 0.2 10*3/uL (0.0-0.87); Hematocrit 39.9 VOL% (42.0-52.0); Immature Granulocytes % 0.8 %; Immature Granulocytes Absolute 0.07 #; Lymphocytes # 1.3 10*3/uL (1.4-4.0); Lymphocytes % 14.7 % (21.2-54.2); Mean Corpuscular HGB Conc 35.1 GM/DL (32-36); Mean Corpuscular Volume 92.1 FL (87-102); Mean Platelet Volume 9.6 FL (9.6-12.0); Monocytes % 10.7 % (1.7-12.7); Neutrophils % 71.5 % (38.7-73.9); Platelet Count 230 T/CUMM (130-400); Red Blood Count 4.33 MC/CUMM (3.8-5.5); Red Cell Distribution Width 13.2 % (9.3-17.3)
[2019-12-04] MEDS: CHLORHEXIDINE 4% SOLN 118 ML BOTTLE TOP SCH ×3 (05:53→08:24)
[2019-12-04 06:13] LABS: Albumin 3.5 G/DL (3.4-5.0); Bilirubin,Total 0.8 MG/DL (0.2-1.0); Calcium 9.1 MG/DL (8.5-10.1); Osmolality,Calculated 272.2 MOS/KG (273-304); Total Protein 7.8 G/DL (6.4-8.3)
[2019-12-04] MEDS: LEVOTHYROXINE 50 MCG TABLET PO SCH (06:29)
[2019-12-04] MEDS ORDERED: FAMOTIDINE 20 MG/2 ML VIAL IV ONE (06:46)
[2019-12-04] MEDS ORDERED: diphenhydrAMINE 50 MG/1 ML VIAL ONE (06:46)
[2019-12-04] MEDS ORDERED: NITROPRUSSIDE 50 MG/2 ML VIAL ONE (07:30)
[2019-12-04] MEDS ORDERED: POTASSIUM CHLORIDE RIDER 100 ML IV ONE (07:30)
[2019-12-04] MEDS ORDERED: SODIUM BICARBONATE 50 MEQ/50 ML VIAL IV ONE ×2 (07:30→10:57)
[2019-12-04] MEDS ORDERED: PHENYLEPHRINE DRIP 40 MG/250 ML PREMIX IV ONE (07:31)
[2019-12-04] MEDS ORDERED: CALCIUM CHLORIDE 1,000 MG/10 ML SYRINGE IV ONE (07:31)
[2019-12-04 07:52] LABS: ABG Base Excess -7.3 MMOL/L (-2.5-2.5); ABG HCO3 18.6 MMOL/L (20-26); ABG PCO2 39.7 MM HG (35-48); ABG PH 7.287 (7.35-7.45); ABG TCO2 16.9 MMOL/L (23-27); Glucose Heart Surgery 146 MG/DL (74-106); Hematocrit Heart Surgery 38.8 PERCENT (42-52); Hemoglobin Heart Surgery 12.6 G/DL (14.0-18.0); Ionized Calcium Arterial 1.19 MMOL/L (1.21-1.46); PCO2 Patient Temp Arterial 39.7 MMHG; PH Patient Temp Arterial 7.287; Patient Temperature 37 CELCIUS; Sodium Heart/CVR 136 MMOL/L (135-145)
[2019-12-04] MEDS: SODIUM CHLORIDE 0.9% 1,000 ML IV SCH ×2 (08:23→14:28)
[2019-12-04] MEDS: LORATADINE 10 MG TABLET PO SCH (08:24)
[2019-12-04] MEDS: INSULIN REGULAR 100 UNIT/ML SUBCUT SCH ×2 (08:24→14:28)
[2019-12-04] MEDS: TAMSULOSIN 0.4 MG CAPSULE PO SCH (08:24)
[2019-12-04] MEDS: ASPIRIN 325 MG TABLET PO SCH (08:24)
[2019-12-04] MEDS: GABAPENTIN 300 MG CAPSULE PO SCH (08:25)
[2019-12-04] MEDS: RIFAXIMIN 550 MG TABLET PO SCH (08:25)
[2019-12-04] MEDS: METOPROLOL TARTRATE 25 MG TABLET PO SCH ×2 (08:25→17:43)
[2019-12-04] MEDS: SIMETHICONE CHEW 80 MG TABLET PO SCH (08:25)
[2019-12-04] MEDS: CHLORHEXIDINE 0.12% ORAL RINSE 60 ML BOTTLE SWISH/SPIT SCH ×2 (08:25→20:40)
[2019-12-04] MEDS: PANTOPRAZOLE 40 MG TABLET PO SCH (08:25)
[2019-12-04] MEDS: TRIAMTERENE/HCTZ 37.5-25 MG TABLET PO SCH (08:25)
[2019-12-04 09:22] LABS: Hematocrit Heart Surgery 23.8 PERCENT (42-52); Hemoglobin Heart Surgery 7.6 G/DL (14.0-18.0); PCO2 Patient Temp Venous 39.2 MM HG; PH Patient Temp Venous 7.364; PO2 Patient Temp Venous 45.6 MM HG; Potassium Heart/CVR 4.9 MMOL/L (3.5-5.1); VBG Base Excess -2.7 MEQ/L (0-4); VBG HCO3 21.9 MEQ/L (24-28); VBG Oxygen Saturation 80.8 %; VBG PCO2 39.2 MMHG (41-51); VBG PH 7.364; VBG PO2 45.6 MMHG (17-40)
[2019-12-04 09:34] LABS: Bilirubin,Urine Negative (Negative); Blood, Urine Moderate mg/dL (Negative); Glucose,Urine (UA) Negative (Negative); Ketones,Urine 5 mg/dL (Negative); Mucus,Urine Occasional /LPF (Occasional); Nitrite,Urine Negative (Negative); Protein,Urine Negative; RBC,Urine 14 /HPF (0-4); Urine Appearance CLEAR (Clear); Urine Color Yellow (Yellow); Urine Urobilinogen < 2.0 EU/DL (0.2-1.0); WBC,Urine 3 /HPF (0-6)
[2019-12-04 09:57] LABS: Hematocrit Heart Surgery 24.7 PERCENT (42-52); Hemoglobin Heart Surgery 7.9 G/DL (14.0-18.0); PCO2 Patient Temp Venous 40.4 MM HG; PH Patient Temp Venous 7.378; Potassium Heart/CVR 4.9 MMOL/L (3.5-5.1); VBG Base Excess -1.2 MEQ/L (0-4); VBG HCO3 23.2 MEQ/L (24-28); VBG Oxygen Saturation 82.4 %; VBG PCO2 40.4 MMHG (41-51); VBG PH 7.378
[2019-12-04 10:28] LABS: Hemoglobin Heart Surgery 8.7 G/DL (14.0-18.0); PCO2 Patient Temp Venous 37.9 MM HG; PH Patient Temp Venous 7.441; PO2 Patient Temp Venous 36.9 MM HG; Potassium Heart/CVR 4.9 MMOL/L (3.5-5.1); VBG Base Excess 1.1 MEQ/L (0-4); VBG HCO3 25.2 MEQ/L (24-28); VBG PCO2 37.9 MMHG (41-51); VBG PH 7.441; VBG PO2 36.9 MMHG (17-40)
[2019-12-04] MEDS ORDERED: THROMBIN TOPICAL (RECOMBINANT) 5,000 UNIT VIAL TOP ONE (10:52)
[2019-12-04] MEDS ORDERED: MANNITOL 100 GM/500 ML BAG IV ONE (10:56)
[2019-12-04] MEDS ORDERED: MAGNESIUM SULFATE 5 GM/10 ML VIAL IV ONE (10:57)
[2019-12-04] MEDS ORDERED: PROTAMINE SULFATE 250 MG/25 ML VIAL IV ONE (10:57)
[2019-12-04] MEDS ORDERED: methylPREDNISolone SOD SUC 1,000 MG/8 ML VIAL ONE (10:57)
[2019-12-04] MEDS ORDERED: DEXTROSE 5% KCL 20 MEQ 20 MEQ/1,000 ML BAG IV ONE (10:57)
[2019-12-04] MEDS ORDERED: HEPARIN 10,000 UNIT/10 ML VIAL ONE (10:57)
[2019-12-04] MEDS ORDERED: ALBUMIN 25% 25 GM/100 ML VIAL IV ONE (10:57)
[2019-12-04] MEDS ORDERED: FUROSEMIDE 20 MG/2 ML VIAL ONE (10:58)
[2019-12-04 11:17] LABS: ABG Base Excess -2.4 MMOL/L (-2.5-2.5); ABG HCO3 22.4 MMOL/L (20-26); ABG PCO2 36.3 MM HG (35-48); ABG PH 7.393 (7.35-7.45); ABG TCO2 20.5 MMOL/L (23-27); Glucose Heart Surgery 283 MG/DL (74-106); Hematocrit Heart Surgery 26.3 PERCENT (42-52); Hemoglobin Heart Surgery 8.5 G/DL (14.0-18.0); Ionized Calcium Arterial 1.26 MMOL/L (1.21-1.46); PCO2 Patient Temp Arterial 36.3 MMHG; PH Patient Temp Arterial 7.393; Patient Temperature 37 CELCIUS; Potassium Heart/CVR 3.5 MMOL/L (3.5-5.1); Sodium Heart/CVR 135 MMOL/L (135-145)
[2019-12-04] MEDS ORDERED: DEXTROSE 50% 25 GM/50 ML VIAL IV PRN ×2 (11:55)
[2019-12-04] MEDS ORDERED: ALBUMIN 5% 12.5 GM in PREMIX 1 EACH IV PRN (11:55)
[2019-12-04] MEDS ORDERED: CALCIUM CHLORIDE 1,000 MG/10 ML SYRINGE IV PRN (11:55)
[2019-12-04] MEDS ORDERED: MAGNESIUM SULF RIDER 4 GM in PREMIX 1 EACH IV PRN (11:55)
[2019-12-04] MEDS ORDERED: ACETAMINOPHEN 650 MG SUPP RECTAL PRN (11:55)
[2019-12-04] MEDS ORDERED: MORPHINE 10 MG/1 ML VIAL IV PRN (11:55)
[2019-12-04] MEDS ORDERED: INSULIN REGULAR 100 UNIT/ML IV PRN (11:55)
[2019-12-04] MEDS ORDERED: PHENYLEPHRINE DRIP 40 MG/250 ML PREMIX IV PRN (11:55)
[2019-12-04] MEDS ORDERED: MAGNESIUM SULF RIDER 2 GM in PREMIX 1 EACH IV PRN (11:55)
[2019-12-04] MEDS ORDERED: ONDANSETRON 4 MG/2 ML VIAL IV PRN (11:55)
[2019-12-04] MEDS ORDERED: CHLORHEXIDINE 4% SOLN 118 ML BOTTLE TOP PRN (11:55)
[2019-12-04] MEDS ORDERED: INSULIN REGULAR 100 UNIT/ML IV ONE (11:55)
[2019-12-04] MEDS ORDERED: INSULIN REGULAR DRIP 100 ML IV SCH (11:55)
[2019-12-04] MEDS ORDERED: MIDAZOLAM 2 MG/2 ML VIAL IV PRN (11:55)
[2019-12-04] MEDS ORDERED: SODIUM CHLORIDE 0.45% 1,000 ML IV SCH ×2 (11:55)
[2019-12-04] MEDS ORDERED: NITROPRUSSIDE 100 MG in DEXTROSE 5% 250 ML IV PRN (11:55)
[2019-12-04] MEDS ORDERED: VECURONIUM 10 MG VIAL IV PRN ×2 (11:55)
[2019-12-04] MEDS ORDERED: MIDAZOLAM 10 MG/2 ML VIAL IV PRN (11:55)
[2019-12-04] MEDS ORDERED: SEVOFLURANE 1 UNIT/15 MINUTE INH ONE (12:11)
[2019-12-04] MEDS ORDERED: ESMOLOL 100 MG/10 ML VIAL IV ONE (12:11)
[2019-12-04] MEDS ORDERED: MINERAL OIL/PETROLATUM OPH OINT 3.5 GM TUBE ONE (12:11)
[2019-12-04 12:30] LABS: ABG Base Excess -0.8 MMOL/L (-2.5-2.5); ABG HCO3 23.9 MMOL/L (20-26); ABG PCO2 39.6 MM HG (35-48); ABG PH 7.399 (7.35-7.45); ABG PO2 407.6 MM HG (80-95); ABG TCO2 25.1 MMOL/L (23-27); Glucose Heart Surgery 267 MG/DL (74-106); Hemoglobin Heart Surgery 9.5 G/DL (14.0-18.0); Potassium Heart/CVR 3.7 MMOL/L (3.5-5.1)
[2019-12-04 12:40] LABS: Basophils % 0.2 % (0.0-0.8); Eosinophils # 0.1 10*3/uL (0.0-0.87); Eosinophils % 0.4 % (0.00-10.9); Hematocrit 25.7 VOL% (42.0-52.0); Immature Granulocytes % 0.7 %; Immature Granulocytes Absolute 0.08 #; Lymphocytes # 1.1 10*3/uL (1.4-4.0); Lymphocytes % 8.8 % (21.2-54.2); Mean Corpuscular HGB Conc 34.6 GM/DL (32-36); Mean Corpuscular Volume 93.1 FL (87-102); Mean Platelet Volume 9.9 FL (9.6-12.0); Monocytes % 7.3 % (1.7-12.7); Neutrophils % 82.6 % (38.7-73.9); Platelet Count 228 T/CUMM (130-400); Red Cell Distribution Width 13.4 % (9.3-17.3)
[2019-12-04 12:41] LABS: Hemoglobin 8.9 GM/DL (14.0-18.0); Red Blood Count 2.76 MC/CUMM (3.8-5.5); White Blood Count 12.3 T/CUMM (4-12)
[2019-12-04 12:47] LABS: INR 1.2; PT Patient Result 13.1 SECS (9.8-11.9); Partial Thromboplastin Time 29.3 SECS (23.9-33.8)
[2019-12-04] MEDS: LACTATED RINGERS 250 ML IV PRN ×6 (12:48→14:30)
[2019-12-04] MEDS: POTASSIUM CHLORIDE RIDER 20 MEQ in PREMIX 1 EACH IV PRN ×4 (12:48→20:48)
[2019-12-04] MEDS ORDERED: METOPROLOL TARTRATE 25 MG TABLET PO SCH (12:52)
[2019-12-04 13:41] LABS: CKMB % 5.2 %
[2019-12-04] MEDS: MORPHINE 4 MG/1 ML VIAL IV PRN ×2 (13:41→18:10)
[2019-12-04 13:43] LABS: Troponin I 3.55 NG/ML (0.00-0.045)
[2019-12-04 13:44] LABS: Calcium 9.2 MG/DL (8.5-10.1); Osmolality,Calculated 283.8 MOS/KG (273-304); Total Protein 6.3 G/DL (6.4-8.3)
[2019-12-04] MEDS: POTASSIUM CHLORIDE RIDER 10 MEQ in PREMIX 1 EACH IV PRN ×3 (13:44→21:42)
[2019-12-04 14:28] LABS: ABG Base Excess -2.6 MMOL/L (-2.5-2.5); ABG HCO3 22.3 MMOL/L (20-26); ABG Oxygen Saturation 99.3 % (95-100); ABG PCO2 42.4 MM HG (35-48); ABG PH 7.343 (7.35-7.45); ABG TCO2 21.2 MMOL/L (23-27); Glucose Heart Surgery 257 MG/DL (74-106); Hematocrit Heart Surgery 28.7 PERCENT (42-52); Hemoglobin Heart Surgery 9.2 G/DL (14.0-18.0); Potassium Heart/CVR 3.5 MMOL/L (3.5-5.1)
[2019-12-04] MEDS ORDERED: FUROSEMIDE 40 MG/4 ML VIAL IV PRN (15:30)
[2019-12-04 15:50] LABS: ABG Base Excess 0.2 MMOL/L (-2.5-2.5); ABG HCO3 24.7 MMOL/L (20-26); ABG Oxygen Saturation 99.9 % (95-100); ABG PCO2 35.7 MM HG (35-48); ABG PH 7.437 (7.35-7.45); ABG TCO2 21.8 MMOL/L (23-27); Glucose Heart Surgery 235 MG/DL (74-106); Hematocrit Heart Surgery 31.2 PERCENT (42-52); Hemoglobin Heart Surgery 10.1 G/DL (14.0-18.0)
[2019-12-04] MEDS: CEFUROXIME INJ 1,500 MG in SYRINGE 1 EACH IV SCH (18:37)
[2019-12-04 18:50] LABS: ABG Base Excess 2.3 MMOL/L (-2.5-2.5); ABG HCO3 26.4 MMOL/L (20-26); ABG Oxygen Saturation 99.7 % (95-100); ABG PCO2 37.9 MM HG (35-48); ABG PH 7.448 (7.35-7.45); ABG TCO2 23.6 MMOL/L (23-27); Glucose Heart Surgery 194 MG/DL (74-106); Hemoglobin Heart Surgery 10.4 G/DL (14.0-18.0); Potassium Heart/CVR 3.8 MMOL/L (3.5-5.1)
[2019-12-04 20:44] LABS: ABG Base Excess 2.7 MMOL/L (-2.5-2.5); ABG HCO3 26.9 MMOL/L (20-26); ABG Oxygen Saturation 99.4 % (95-100); ABG PCO2 40.4 MM HG (35-48); ABG PH 7.435 (7.35-7.45); ABG TCO2 24.4 MMOL/L (23-27); Glucose Heart Surgery 153 MG/DL (74-106); Hematocrit Heart Surgery 32.8 PERCENT (42-52); Hemoglobin Heart Surgery 10.6 G/DL (14.0-18.0); Potassium Heart/CVR 3.5 MMOL/L (3.5-5.1)
[2019-12-04 21:23] LABS: CKMB % 4.7 %
[2019-12-04 21:31] LABS: Troponin I 2.95 NG/ML (0.00-0.045)
[2019-12-04 21:41] LABS: ABG HCO3 26.1 MMOL/L (20-26); ABG Oxygen Saturation 98.3 % (95-100); ABG PCO2 38.7 MM HG (35-48); ABG PH 7.446 (7.35-7.45); ABG PO2 139.3 MM HG (80-95); ABG TCO2 27.2 MMOL/L (23-27); Glucose Heart Surgery 133 MG/DL (74-106); Potassium Heart/CVR 3.9 MMOL/L (3.5-5.1)
[2019-12-04 22:41] LABS: ABG HCO3 26.4 MMOL/L (20-26); ABG Oxygen Saturation 98.2 % (95-100); ABG PCO2 40.3 MM HG (35-48); ABG PH 7.434 (7.35-7.45); ABG PO2 137.1 MM HG (80-95); ABG TCO2 27.6 MMOL/L (23-27); Glucose Heart Surgery 122 MG/DL (74-106); Hemoglobin Heart Surgery 11.1 G/DL (14.0-18.0); Potassium Heart/CVR 3.8 MMOL/L (3.5-5.1)
[2019-12-05] MEDS: LACTATED RINGERS 250 ML IV PRN (00:59)
[2019-12-05 01:04] LABS: ABG Base Excess 2.1 MMOL/L (-2.5-2.5); ABG HCO3 26.3 MMOL/L (20-26); ABG Oxygen Saturation 99.3 % (95-100); ABG PCO2 37.5 MM HG (35-48); ABG PH 7.447 (7.35-7.45); ABG TCO2 21.7 MMOL/L (23-27); Glucose Heart Surgery 113 MG/DL (74-106); Hematocrit Heart Surgery 48.1 PERCENT (42-52); Hemoglobin Heart Surgery 15.7 G/DL (14.0-18.0); Potassium Heart/CVR 3.6 MMOL/L (3.5-5.1)
[2019-12-05] MEDS: MORPHINE 4 MG/1 ML VIAL IV PRN (01:55)
[2019-12-05] MEDS: METOPROLOL TARTRATE 25 MG TABLET PO SCH ×2 (02:11→06:28)
[2019-12-05 02:12] LABS: ABG Base Excess 1.1 MMOL/L (-2.5-2.5); ABG HCO3 24.9 MMOL/L (20-26); ABG Oxygen Saturation 97.7 % (95-100); ABG PCO2 36.8 MM HG (35-48); ABG PH 7.449 (7.35-7.45); ABG PO2 113.2 MM HG (80-95); ABG TCO2 26.1 MMOL/L (23-27); Glucose Heart Surgery 109 MG/DL (74-106); Hemoglobin Heart Surgery 10.7 G/DL (14.0-18.0); Potassium Heart/CVR 3.6 MMOL/L (3.5-5.1)
[2019-12-05] MEDS: POTASSIUM CHLORIDE RIDER 20 MEQ in PREMIX 1 EACH IV PRN (02:37)
[2019-12-05 04:38] LABS: ABG Base Excess -1.2 MMOL/L (-2.5-2.5); ABG HCO3 22.7 MMOL/L (20-26); ABG Oxygen Saturation 97.2 % (95-100); ABG PCO2 34.9 MM HG (35-48); ABG PH 7.431 (7.35-7.45); ABG TCO2 23.8 MMOL/L (23-27); Glucose Heart Surgery 164 MG/DL (74-106); Hemoglobin Heart Surgery 10.3 G/DL (14.0-18.0); Potassium Heart/CVR 4.2 MMOL/L (3.5-5.1)
[2019-12-05 04:43] LABS: Basophils % 0.1 % (0.0-0.8); Hematocrit 28.1 VOL% (42.0-52.0); Hemoglobin 9.8 GM/DL (14.0-18.0); Immature Granulocytes % 0.5 %; Immature Granulocytes Absolute 0.06 #; Lymphocytes # 0.5 10*3/uL (1.4-4.0); Lymphocytes % 4.1 % (21.2-54.2); Mean Corpuscular HGB Conc 34.9 GM/DL (32-36); Mean Corpuscular Volume 90.9 FL (87-102); Mean Platelet Volume 10.1 FL (9.6-12.0); Monocytes % 6.8 % (1.7-12.7); Neutrophils % 88.5 % (38.7-73.9); Platelet Count 154 T/CUMM (130-400); Red Blood Count 3.09 MC/CUMM (3.8-5.5); Red Cell Distribution Width 14.5 % (9.3-17.3)
[2019-12-05 05:10] LABS: CKMB % 5.4 %
[2019-12-05 05:11] LABS: Troponin I 3.06 NG/ML (0.00-0.045)
[2019-12-05 05:28] LABS: Albumin 2.7 G/DL (3.4-5.0); Bilirubin,Direct 0.21 MG/DL (0.0-0.20); Bilirubin,Total 1.2 MG/DL (0.2-1.0); Calcium 7.7 MG/DL (8.5-10.1); Osmolality,Calculated 277.7 MOS/KG (273-304); Total Protein 5.4 G/DL (6.4-8.3)
[2019-12-05 05:47] LABS: Anisocytosis Slight; Band Neutrophils 5 % (0-10); Eosinophils 1 % (0-10); Lymphocytes 5 % (20-55); Macrocytosis Slight; Platelet Estimate Adequate; Segmented Neutrophils 80 % (50-85); Total Cells Counted 100
[2019-12-05] MEDS: CEFUROXIME INJ 1,500 MG in SYRINGE 1 EACH IV SCH (06:39)
[2019-12-05] MEDS ORDERED: INSULIN REGULAR 100 UNIT/ML SUBCUT SCH ×2 (08:00→12:00)
[2019-12-05] MEDS: CHLORHEXIDINE 0.12% ORAL RINSE 60 ML BOTTLE SWISH/SPIT SCH (08:12)
[2019-12-05] MEDS ORDERED: KETOROLAC 30 MG/1 ML VIAL IV ONE (09:37)
[2019-12-05] MEDS ORDERED: LOPERAMIDE 2 MG CAPSULE PO PRN (10:05)
[2019-12-05] MEDS ORDERED: guaiFENesin/DM ER 600-30 MG TABLET PO PRN (10:05)
[2019-12-05] MEDS ORDERED: MAGNESIUM SULF RIDER 2 GM in PREMIX 1 EACH IV PRN (10:45)
[2019-12-05] MEDS ORDERED: ALUMINUM/MAGNES/SIMETH MAX STR 30 ML UDCUP PO PRN (10:45)
[2019-12-05] MEDS ORDERED: MAGNESIUM SULF RIDER 4 GM in PREMIX 1 EACH IV PRN (10:45)
[2019-12-05] MEDS ORDERED: oxyCODONE/ACETAMINOPHEN 5-325 MG TABLET PO PRN (10:45)
[2019-12-05] MEDS ORDERED: SODIUM CHLOR 0.45% KCL 20 MEQ 20 MEQ/1,000 ML BAG IV SCH (10:45)
[2019-12-05] MEDS ORDERED: ONDANSETRON 4 MG/2 ML VIAL IV PRN (10:45)
[2019-12-05] MEDS ORDERED: ZALEPLON 5 MG CAPSULE PO PRN (10:45)
[2019-12-05] MEDS ORDERED: GLUCAGON 1 MG VIAL IM PRN ×2 (10:45)
[2019-12-05] MEDS ORDERED: DEXTROSE 50% 25 GM/50 ML VIAL IV PRN ×2 (10:45)
[2019-12-05] MEDS ORDERED: MAGNESIUM HYDROXIDE SUSP 30 ML UDCUP PO PRN (10:45)
[2019-12-05] MEDS: KETOROLAC 30 MG/1 ML VIAL IV SCH ×2 (11:45→17:43)
[2019-12-05] MEDS: SIMETHICONE CHEW 80 MG TABLET PO SCH ×2 (13:25→17:43)
[2019-12-05] MEDS: INSULIN REGULAR 100 UNIT/ML SUBCUT SCH ×2 (13:25→17:29)
[2019-12-05] MEDS: GABAPENTIN 300 MG CAPSULE PO SCH (14:40)
[2019-12-05] MEDS ORDERED: SODIUM CHLORIDE 0.9% 1,000 ML IV ONE (16:34)
[2019-12-05] MEDS ORDERED: SODIUM CHLORIDE 0.9% 250 ML IV ONE ×2 (16:34→17:38)
[2019-12-05] MEDS ORDERED: AMIODARONE INJ 150 MG in DEXTROSE 5% 100 ML IV ONE (18:33)
[2019-12-05] MEDS ORDERED: AMIODARONE INJ 450 MG in DEXTROSE 5% 241 ML IV SCH (19:00)
[2019-12-05] MEDS ORDERED: METOPROLOL TARTRATE 25 MG TABLET PO SCH (21:00)
[2019-12-06] MEDS: ROSUVASTATIN 20 MG TABLET PO SCH ×2 (00:31→21:25)
[2019-12-06] MEDS: MONTELUKAST 10 MG TABLET PO SCH ×2 (00:31→21:26)
[2019-12-06] MEDS: INSULIN REGULAR 100 UNIT/ML SUBCUT SCH ×5 (00:31→21:32)
[2019-12-06] MEDS: GABAPENTIN 300 MG CAPSULE PO SCH ×4 (00:31→21:25)
[2019-12-06] MEDS: SIMETHICONE CHEW 80 MG TABLET PO SCH ×5 (00:31→21:26)
[2019-12-06] MEDS: KETOROLAC 30 MG/1 ML VIAL IV SCH ×5 (00:32→21:56)
[2019-12-06] MEDS: CHLORHEXIDINE 0.12% ORAL RINSE 60 ML BOTTLE SWISH/SPIT SCH ×3 (00:36→21:27)
[2019-12-06] MEDS: RIFAXIMIN 550 MG TABLET PO SCH ×3 (00:36→21:27)
[2019-12-06] MEDS: PHENYLEPHRINE DRIP 40 MG/250 ML PREMIX IV PRN (01:46)
[2019-12-06] MEDS: SODIUM CHLOR 0.45% KCL 20 MEQ 20 MEQ/1,000 ML BAG IV SCH ×2 (03:59→14:50)
[2019-12-06 04:59] LABS: Basophils % 0.1 % (0.0-0.8); Eosinophils % 0.1 % (0.00-10.9); Hematocrit 28.1 VOL% (42.0-52.0); Hemoglobin 9.8 GM/DL (14.0-18.0); Immature Granulocytes % 0.6 %; Immature Granulocytes Absolute 0.09 #; Lymphocytes # 1.3 10*3/uL (1.4-4.0); Lymphocytes % 8.6 % (21.2-54.2); Mean Corpuscular HGB Conc 34.9 GM/DL (32-36); Mean Corpuscular Volume 92.1 FL (87-102); Mean Platelet Volume 10.1 FL (9.6-12.0); Monocytes % 7.4 % (1.7-12.7); Neutrophils % 83.2 % (38.7-73.9); Platelet Count 199 T/CUMM (130-400); Red Blood Count 3.05 MC/CUMM (3.8-5.5); Red Cell Distribution Width 14.7 % (9.3-17.3); White Blood Count 15.5 T/CUMM (4-12)
[2019-12-06 05:18] LABS: Albumin 2.5 G/DL (3.4-5.0); Bilirubin,Direct 0.12 MG/DL (0.0-0.20); Bilirubin,Indirect 0.3 MG/DL (0.0-1.0); Bilirubin,Total 0.4 MG/DL (0.2-1.0); CKMB % 2.6 %; Calcium 7.4 MG/DL (8.5-10.1); Osmolality,Calculated 274.8 MOS/KG (273-304); Total Protein 5.7 G/DL (6.4-8.3)
[2019-12-06 05:23] LABS: Troponin I 2.55 NG/ML (0.00-0.045)
[2019-12-06] MEDS ORDERED: FUROSEMIDE 40 MG/4 ML VIAL IV ONE (06:00)
[2019-12-06] MEDS: LEVOTHYROXINE 50 MCG TABLET PO SCH (06:08)
[2019-12-06] MEDS ORDERED: POTASSIUM CHLORIDE 20 MEQ TABLET PO ONE (06:55)
[2019-12-06] MEDS ORDERED: MAGNESIUM SULF RIDER 2 GM in PREMIX 1 EACH IV ONE (06:55)
[2019-12-06] MEDS ORDERED: TRIAMTERENE/HCTZ 37.5-25 MG TABLET PO SCH (09:00)
[2019-12-06] MEDS: PANTOPRAZOLE 40 MG TABLET PO SCH (09:34)
[2019-12-06] MEDS: FERROUS SULFATE 325 MG TABLET PO SCH (09:35)
[2019-12-06] MEDS: ASPIRIN EC 325 MG TABLET PO SCH ×2 (09:35→10:51)
[2019-12-06] MEDS: DOCUSATE SODIUM 100 MG CAPSULE PO SCH (09:36)
[2019-12-06] MEDS: LORATADINE 10 MG TABLET PO SCH (09:37)
[2019-12-06] MEDS: ASCORBIC ACID 500 MG TABLET PO SCH ×2 (11:54→21:26)
[2019-12-07] MEDS: SODIUM CHLOR 0.45% KCL 20 MEQ 20 MEQ/1,000 ML BAG IV SCH ×3 (00:44→20:29)
[2019-12-07] MEDS: KETOROLAC 30 MG/1 ML VIAL IV SCH (04:38)
[2019-12-07 04:54] LABS: Basophils % 0.2 % (0.0-0.8); Eosinophils # 0.1 10*3/uL (0.0-0.87); Eosinophils % 1.5 % (0.00-10.9); Hematocrit 28.7 VOL% (42.0-52.0); Hemoglobin 9.7 GM/DL (14.0-18.0); Immature Granulocytes % 1.2 %; Immature Granulocytes Absolute 0.11 #; Lymphocytes # 1.1 10*3/uL (1.4-4.0); Lymphocytes % 11.8 % (21.2-54.2); Mean Corpuscular HGB Conc 33.8 GM/DL (32-36); Mean Corpuscular Volume 93.2 FL (87-102); Mean Platelet Volume 9.9 FL (9.6-12.0); Neutrophils % 76.3 % (38.7-73.9); Platelet Count 186 T/CUMM (130-400); Red Blood Count 3.08 MC/CUMM (3.8-5.5); Red Cell Distribution Width 14.6 % (9.3-17.3); White Blood Count 8.9 T/CUMM (4-12)
[2019-12-07 05:15] LABS: Alanine Aminotransferase 37 U/L (16-61); Albumin 2.3 G/DL (3.4-5.0); Alkaline Phosphatase 93 U/L (45-117); Aspartate Amino Transferase 29 U/L (0-37); Bilirubin,Indirect 0.7 MG/DL (0.0-1.0); Blood Urea Nitrogen 11 MG/DL (7-18); Calcium 7.6 MG/DL (8.5-10.1); Estimated Glom Filtration Rate 114 ML/MIN; Glucose 132 MG/DL (74-106); Osmolality,Calculated 279.4 MOS/KG (273-304); Total Protein 5.5 G/DL (6.4-8.3)
[2019-12-07] MEDS: LEVOTHYROXINE 50 MCG TABLET PO SCH (06:19)
[2019-12-07] MEDS: PANTOPRAZOLE 40 MG TABLET PO SCH (07:50)
[2019-12-07] MEDS: INSULIN REGULAR 100 UNIT/ML SUBCUT SCH ×4 (07:50→20:16)
[2019-12-07] MEDS: GABAPENTIN 300 MG CAPSULE PO SCH ×3 (08:50→20:12)
[2019-12-07] MEDS: RIFAXIMIN 550 MG TABLET PO SCH ×2 (08:50→20:11)
[2019-12-07] MEDS: DOCUSATE SODIUM 100 MG CAPSULE PO SCH (08:50)
[2019-12-07] MEDS: POTASSIUM CHLORIDE 20 MEQ TABLET PO PRN ×2 (08:50→09:50)
[2019-12-07] MEDS: PHENYLEPHRINE DRIP 40 MG/250 ML PREMIX IV PRN (08:50)
[2019-12-07] MEDS: LORATADINE 10 MG TABLET PO SCH (08:50)
[2019-12-07] MEDS: ASPIRIN EC 325 MG TABLET PO SCH (08:50)
[2019-12-07] MEDS: FERROUS SULFATE 325 MG TABLET PO SCH (08:50)
[2019-12-07] MEDS: ASCORBIC ACID 500 MG TABLET PO SCH ×2 (08:50→20:14)
[2019-12-07] MEDS: SIMETHICONE CHEW 80 MG TABLET PO SCH ×4 (09:00→20:13)
[2019-12-07] MEDS: CHLORHEXIDINE 0.12% ORAL RINSE 60 ML BOTTLE SWISH/SPIT SCH ×2 (09:15→20:18)
[2019-12-07] MEDS: ACETAMINOPHEN 325 MG TABLET PO PRN (10:50)
[2019-12-07] MEDS ORDERED: SIMETHICONE CHEW 80 MG TABLET PO ONE (13:00)
[2019-12-07] MEDS: MIDODRINE 5 MG TABLET PO SCH ×2 (15:50→20:13)
[2019-12-07] MEDS: ROSUVASTATIN 20 MG TABLET PO SCH (20:10)
[2019-12-07] MEDS: MONTELUKAST 10 MG TABLET PO SCH (20:15)
[2019-12-08] MEDS: ACETAMINOPHEN 325 MG TABLET PO PRN (02:22)
[2019-12-08 04:14] LABS: Basophils % 0.3 % (0.0-0.8); Eosinophils # 0.3 10*3/uL (0.0-0.87); Eosinophils % 3.3 % (0.00-10.9); Hematocrit 29.7 VOL% (42.0-52.0); Hemoglobin 10.2 GM/DL (14.0-18.0); Immature Granulocytes % 1.2 %; Immature Granulocytes Absolute 0.09 #; Lymphocytes % 13.5 % (21.2-54.2); Mean Corpuscular HGB Conc 34.3 GM/DL (32-36); Mean Corpuscular Volume 93.1 FL (87-102); Mean Platelet Volume 10.1 FL (9.6-12.0); Monocytes % 9.4 % (1.7-12.7); Neutrophils % 72.3 % (38.7-73.9); Platelet Count 208 T/CUMM (130-400); Red Blood Count 3.19 MC/CUMM (3.8-5.5); Red Cell Distribution Width 14.6 % (9.3-17.3); White Blood Count 7.6 T/CUMM (4-12)
[2019-12-08 04:19] LABS: Calcium 7.4 MG/DL (8.5-10.1); Osmolality,Calculated 272.8 MOS/KG (273-304)
[2019-12-08] MEDS: SODIUM CHLOR 0.45% KCL 20 MEQ 20 MEQ/1,000 ML BAG IV SCH (06:14)
[2019-12-08] MEDS: LEVOTHYROXINE 50 MCG TABLET PO SCH (06:22)
[2019-12-08] MEDS: ASPIRIN EC 325 MG TABLET PO SCH (08:50)
[2019-12-08] MEDS: RIFAXIMIN 550 MG TABLET PO SCH ×2 (08:51→22:19)
[2019-12-08] MEDS: GABAPENTIN 300 MG CAPSULE PO SCH ×3 (08:51→22:18)
[2019-12-08] MEDS: SIMETHICONE CHEW 80 MG TABLET PO SCH ×4 (08:51→22:18)
[2019-12-08] MEDS: MIDODRINE 5 MG TABLET PO SCH ×3 (08:51→22:18)
[2019-12-08] MEDS: DOCUSATE SODIUM 100 MG CAPSULE PO SCH (08:52)
[2019-12-08] MEDS: LORATADINE 10 MG TABLET PO SCH (08:52)
[2019-12-08] MEDS: PANTOPRAZOLE 40 MG TABLET PO SCH (08:52)
[2019-12-08] MEDS: ASCORBIC ACID 500 MG TABLET PO SCH ×2 (08:52→22:18)
[2019-12-08] MEDS: INSULIN REGULAR 100 UNIT/ML SUBCUT SCH ×4 (08:53→22:39)
[2019-12-08] MEDS: FERROUS SULFATE 325 MG TABLET PO SCH (08:57)
[2019-12-08] MEDS ORDERED: DOCUSATE SODIUM 100 MG CAPSULE PO PRN (09:19)
[2019-12-08] MEDS: TAMSULOSIN 0.4 MG CAPSULE PO SCH ×2 (09:34→11:18)
[2019-12-08] MEDS ORDERED: SODIUM CHLOR 0.45% KCL 20 MEQ 20 MEQ/1,000 ML BAG IV SCH (11:11)
[2019-12-08] MEDS ORDERED: ONDANSETRON 4 MG/2 ML VIAL IV PRN (11:11)
[2019-12-08] MEDS ORDERED: DEXTROSE 50% 25 GM/50 ML VIAL IV PRN (11:11)
[2019-12-08] MEDS ORDERED: ALUMINUM/MAGNES/SIMETH MAX STR 30 ML UDCUP PO PRN (11:11)
[2019-12-08] MEDS ORDERED: PSEUDOEPHEDRINE HCL 120 MG PO PRN (11:11)
[2019-12-08] MEDS ORDERED: MAGNESIUM SULF RIDER 4 GM in PREMIX 1 EACH IV PRN (11:11)
[2019-12-08] MEDS ORDERED: ZALEPLON 5 MG CAPSULE PO PRN (11:11)
[2019-12-08] MEDS ORDERED: MAGNESIUM SULF RIDER 2 GM in PREMIX 1 EACH IV PRN (11:11)
[2019-12-08] MEDS ORDERED: GLUCAGON 1 MG VIAL IM PRN (11:11)
[2019-12-08] MEDS ORDERED: CETIRIZINE PSEUDOEPHEDRINE PO SCH (11:11)
[2019-12-08] MEDS ORDERED: MAGNESIUM HYDROXIDE SUSP 30 ML UDCUP PO PRN (11:11)
[2019-12-08] MEDS: CHLORHEXIDINE 0.12% ORAL RINSE 60 ML BOTTLE SWISH/SPIT SCH ×2 (17:21→22:21)
[2019-12-08] MEDS: ROSUVASTATIN 20 MG TABLET PO SCH (22:18)
[2019-12-08] MEDS: MONTELUKAST 10 MG TABLET PO SCH (22:18)
[2019-12-08] MEDS: METOPROLOL TARTRATE 25 MG TABLET PO SCH (22:21)
[2019-12-09] MEDS: ACETAMINOPHEN 325 MG TABLET PO PRN ×2 (01:23→18:55)
[2019-12-09] MEDS ORDERED: FUROSEMIDE 40 MG/4 ML VIAL IV ONE (06:00)
[2019-12-09] MEDS: LEVOTHYROXINE 50 MCG TABLET PO SCH (06:06)
[2019-12-09 06:45] LABS: Basophils % 0.5 % (0.0-0.8); Eosinophils # 0.4 10*3/uL (0.0-0.87); Hematocrit 30.1 VOL% (42.0-52.0); Immature Granulocytes % 2.6 %; Lymphocytes # 1.2 10*3/uL (1.4-4.0); Lymphocytes % 14.9 % (21.2-54.2); Mean Corpuscular HGB Conc 33.2 GM/DL (32-36); Mean Corpuscular Volume 93.8 FL (87-102); Mean Platelet Volume 10.1 FL (9.6-12.0); Monocytes % 11.7 % (1.7-12.7); Neutrophils % 65.3 % (38.7-73.9); Platelet Count 245 T/CUMM (130-400); Red Blood Count 3.21 MC/CUMM (3.8-5.5); Red Cell Distribution Width 14.6 % (9.3-17.3); White Blood Count 7.8 T/CUMM (4-12)
[2019-12-09 07:28] LABS: Alanine Aminotransferase 23 U/L (16-61); Albumin 2.1 G/DL (3.4-5.0); Alkaline Phosphatase 93 U/L (45-117); Aspartate Amino Transferase 18 U/L (0-37); Bilirubin,Indirect 0.6 MG/DL (0.0-1.0); Blood Urea Nitrogen 12 MG/DL (7-18); Calcium 7.9 MG/DL (8.5-10.1); Estimated Glom Filtration Rate 104 ML/MIN; Glucose 120 MG/DL (74-106); Osmolality,Calculated 273.8 MOS/KG (273-304); Total Protein 5.5 G/DL (6.4-8.3)
[2019-12-09] MEDS: INSULIN REGULAR 100 UNIT/ML SUBCUT SCH ×4 (08:20→21:28)
[2019-12-09] MEDS: LORATADINE 10 MG TABLET PO SCH (08:36)
[2019-12-09] MEDS: RIFAXIMIN 550 MG TABLET PO SCH ×2 (08:36→21:27)
[2019-12-09] MEDS: MIDODRINE 5 MG TABLET PO SCH ×3 (08:36→21:27)
[2019-12-09] MEDS: ASCORBIC ACID 500 MG TABLET PO SCH ×2 (08:36→21:27)
[2019-12-09] MEDS: TAMSULOSIN 0.4 MG CAPSULE PO SCH (08:36)
[2019-12-09] MEDS: ASPIRIN EC 325 MG TABLET PO SCH (08:37)
[2019-12-09] MEDS: GABAPENTIN 300 MG CAPSULE PO SCH ×3 (08:37→21:27)
[2019-12-09] MEDS: SIMETHICONE CHEW 80 MG TABLET PO SCH ×4 (08:37→21:27)
[2019-12-09] MEDS: DOCUSATE SODIUM 100 MG CAPSULE PO SCH (08:37)
[2019-12-09] MEDS: PANTOPRAZOLE 40 MG TABLET PO SCH (08:37)
[2019-12-09] MEDS: FERROUS SULFATE 325 MG TABLET PO SCH (08:37)
[2019-12-09] MEDS: METOPROLOL TARTRATE 25 MG TABLET PO SCH ×2 (08:38→21:28)
[2019-12-09] MEDS: CHLORHEXIDINE 0.12% ORAL RINSE 60 ML BOTTLE SWISH/SPIT SCH ×2 (08:38→21:29)
[2019-12-09] MEDS ORDERED: SEMAGLUTIDE 3 MG PO SCH (09:00)
[2019-12-09] MEDS: ROSUVASTATIN 20 MG TABLET PO SCH (21:26)
[2019-12-09] MEDS: MONTELUKAST 10 MG TABLET PO SCH (21:27)
[2019-12-10] MEDS: ACETAMINOPHEN 325 MG TABLET PO PRN ×2 (00:20→20:01)
[2019-12-10 06:12] LABS: Basophils # 0.1 10*3/uL (0.0-0.2); Basophils % 0.5 % (0.0-0.8); Eosinophils # 0.5 10*3/uL (0.0-0.87); Eosinophils % 5.4 % (0.00-10.9); Hematocrit 29.7 VOL% (42.0-52.0); Hemoglobin 9.9 GM/DL (14.0-18.0); Immature Granulocytes % 2.5 %; Immature Granulocytes Absolute 0.23 #; Lymphocytes # 1.2 10*3/uL (1.4-4.0); Lymphocytes % 12.9 % (21.2-54.2); Mean Corpuscular HGB Conc 33.3 GM/DL (32-36); Mean Corpuscular Volume 93.4 FL (87-102); Mean Platelet Volume 9.7 FL (9.6-12.0); Monocytes % 9.7 % (1.7-12.7); Platelet Count 250 T/CUMM (130-400); Red Blood Count 3.18 MC/CUMM (3.8-5.5); Red Cell Distribution Width 14.6 % (9.3-17.3); White Blood Count 9.2 T/CUMM (4-12)
[2019-12-10 06:25] LABS: Alanine Aminotransferase 21 U/L (16-61); Albumin 2.1 G/DL (3.4-5.0); Alkaline Phosphatase 97 U/L (45-117); Aspartate Amino Transferase 18 U/L (0-37); Blood Urea Nitrogen 13 MG/DL (7-18); Calcium 8.5 MG/DL (8.5-10.1); Estimated Glom Filtration Rate 97 ML/MIN; Glucose 138 MG/DL (74-106); Osmolality,Calculated 274.8 MOS/KG (273-304); Total Protein 5.6 G/DL (6.4-8.3)
[2019-12-10 06:27] LABS: Troponin I 0.657 NG/ML (0.00-0.045)
[2019-12-10] MEDS: LEVOTHYROXINE 50 MCG TABLET PO SCH (06:27)
[2019-12-10] MEDS: DOCUSATE SODIUM 100 MG CAPSULE PO SCH (10:00)
[2019-12-10] MEDS: RIFAXIMIN 550 MG TABLET PO SCH ×2 (10:00→21:54)
[2019-12-10] MEDS: ALFUZOSIN 10 MG TABLET PO SCH (10:01)
[2019-12-10] MEDS: SIMETHICONE CHEW 80 MG TABLET PO SCH ×4 (10:01→21:54)
[2019-12-10] MEDS: ASPIRIN EC 325 MG TABLET PO SCH (10:02)
[2019-12-10] MEDS: LORATADINE 10 MG TABLET PO SCH (10:03)
[2019-12-10] MEDS: FERROUS SULFATE 325 MG TABLET PO SCH (10:03)
[2019-12-10] MEDS: PANTOPRAZOLE 40 MG TABLET PO SCH (10:03)
[2019-12-10] MEDS: ASCORBIC ACID 500 MG TABLET PO SCH ×2 (10:03→21:53)
[2019-12-10] MEDS: MIDODRINE 5 MG TABLET PO SCH ×3 (10:03→21:54)
[2019-12-10] MEDS: INSULIN REGULAR 100 UNIT/ML SUBCUT SCH ×5 (10:04→21:53)
[2019-12-10] MEDS: GABAPENTIN 300 MG CAPSULE PO SCH ×3 (10:04→21:54)
[2019-12-10] MEDS: METOPROLOL TARTRATE 25 MG TABLET PO SCH ×2 (10:06→21:54)
[2019-12-10] MEDS: CHLORHEXIDINE 0.12% ORAL RINSE 60 ML BOTTLE SWISH/SPIT SCH ×2 (10:13→21:55)
[2019-12-10] MEDS: ROSUVASTATIN 20 MG TABLET PO SCH (21:54)
[2019-12-10] MEDS: MONTELUKAST 10 MG TABLET PO SCH (21:56)
[2019-12-11 05:36] LABS: Basophils # 0.1 10*3/uL (0.0-0.2); Basophils % 0.6 % (0.0-0.8); Eosinophils # 0.5 10*3/uL (0.0-0.87); Eosinophils % 5.3 % (0.00-10.9); Hematocrit 28.9 VOL% (42.0-52.0); Hemoglobin 9.8 GM/DL (14.0-18.0); Immature Granulocytes % 3.9 %; Immature Granulocytes Absolute 0.35 #; Lymphocytes # 1.1 10*3/uL (1.4-4.0); Lymphocytes % 12.7 % (21.2-54.2); Mean Corpuscular HGB Conc 33.9 GM/DL (32-36); Mean Corpuscular Volume 92.6 FL (87-102); Mean Platelet Volume 9.8 FL (9.6-12.0); Monocytes % 9.7 % (1.7-12.7); Neutrophils % 67.8 % (38.7-73.9); Platelet Count 260 T/CUMM (130-400); Red Blood Count 3.12 MC/CUMM (3.8-5.5); Red Cell Distribution Width 14.8 % (9.3-17.3); White Blood Count 8.9 T/CUMM (4-12)
[2019-12-11 05:53] LABS: Calcium 8.1 MG/DL (8.5-10.1); Osmolality,Calculated 277.7 MOS/KG (273-304)
[2019-12-11] MEDS: LEVOTHYROXINE 50 MCG TABLET PO SCH (06:20)
[2019-12-11] MEDS: INSULIN REGULAR 100 UNIT/ML SUBCUT SCH ×4 (08:40→20:58)
[2019-12-11] MEDS: ASCORBIC ACID 500 MG TABLET PO SCH ×2 (10:03→21:05)
[2019-12-11] MEDS: ASPIRIN EC 325 MG TABLET PO SCH (10:04)
[2019-12-11] MEDS: SIMETHICONE CHEW 80 MG TABLET PO SCH ×4 (10:04→21:05)
[2019-12-11] MEDS: MIDODRINE 5 MG TABLET PO SCH ×3 (10:04→21:05)
[2019-12-11] MEDS: PANTOPRAZOLE 40 MG TABLET PO SCH (10:05)
[2019-12-11] MEDS: GABAPENTIN 300 MG CAPSULE PO SCH ×3 (10:05→21:05)
[2019-12-11] MEDS: FERROUS SULFATE 325 MG TABLET PO SCH (10:05)
[2019-12-11] MEDS: RIFAXIMIN 550 MG TABLET PO SCH ×2 (10:05→21:06)
[2019-12-11] MEDS: METOPROLOL TARTRATE 25 MG TABLET PO SCH ×2 (10:06→20:58)
[2019-12-11] MEDS: POTASSIUM CHLORIDE 20 MEQ TABLET PO PRN ×2 (10:06→11:44)
[2019-12-11] MEDS: LORATADINE 10 MG TABLET PO SCH (10:06)
[2019-12-11] MEDS: ALFUZOSIN 10 MG TABLET PO SCH (10:07)
[2019-12-11] MEDS: DOCUSATE SODIUM 100 MG CAPSULE PO SCH (10:12)
[2019-12-11] MEDS: CHLORHEXIDINE 0.12% ORAL RINSE 60 ML BOTTLE SWISH/SPIT SCH ×2 (11:08→21:07)
[2019-12-11] MEDS: buPROPion 75 MG TABLET PO SCH (11:23)
[2019-12-11] MEDS: MONTELUKAST 10 MG TABLET PO SCH (21:05)
[2019-12-11] MEDS: ROSUVASTATIN 20 MG TABLET PO SCH (21:05)
[2019-12-11] MEDS: FINASTERIDE 5 MG TABLET PO SCH (21:06)
[2019-12-12] MEDS: ACETAMINOPHEN 325 MG TABLET PO PRN ×2 (04:01→15:06)
[2019-12-12 05:14] LABS: Basophils % 0.4 % (0.0-0.8); Eosinophils # 0.5 10*3/uL (0.0-0.87); Eosinophils % 5.3 % (0.00-10.9); Hematocrit 29.7 VOL% (42.0-52.0); Hemoglobin 9.8 GM/DL (14.0-18.0); Immature Granulocytes Absolute 0.47 #; Lymphocytes # 1.1 10*3/uL (1.4-4.0); Lymphocytes % 11.3 % (21.2-54.2); Mean Corpuscular Volume 93.4 FL (87-102); Mean Platelet Volume 9.4 FL (9.6-12.0); Monocytes % 9.3 % (1.7-12.7); Neutrophils % 68.7 % (38.7-73.9); Platelet Count 279 T/CUMM (130-400); Red Blood Count 3.18 MC/CUMM (3.8-5.5); Red Cell Distribution Width 14.6 % (9.3-17.3); White Blood Count 9.4 T/CUMM (4-12)
[2019-12-12 05:40] LABS: Alanine Aminotransferase 22 U/L (16-61); Albumin 2.3 G/DL (3.4-5.0); Alkaline Phosphatase 105 U/L (45-117); Aspartate Amino Transferase 21 U/L (0-37); Bilirubin,Direct < 0.100 MG/DL (0.0-0.20); Bilirubin,Indirect 0.4 MG/DL (0.0-1.0); Blood Urea Nitrogen 13 MG/DL (7-18); Calcium 8.2 MG/DL (8.5-10.1); Estimated Glom Filtration Rate 97 ML/MIN; Glucose 140 MG/DL (74-106)
[2019-12-12 05:44] LABS: Troponin I 0.159 NG/ML (0.00-0.045)
[2019-12-12] MEDS: LEVOTHYROXINE 50 MCG TABLET PO SCH (06:07)
[2019-12-12] MEDS: POTASSIUM CHLORIDE 20 MEQ TABLET PO PRN ×2 (08:00→09:19)
[2019-12-12] MEDS: RIFAXIMIN 550 MG TABLET PO SCH ×2 (09:17→22:00)
[2019-12-12] MEDS: ASCORBIC ACID 500 MG TABLET PO SCH ×2 (09:19→22:00)
[2019-12-12] MEDS: SIMETHICONE CHEW 80 MG TABLET PO SCH ×4 (09:19→21:59)
[2019-12-12] MEDS: PANTOPRAZOLE 40 MG TABLET PO SCH (09:19)
[2019-12-12] MEDS: GABAPENTIN 300 MG CAPSULE PO SCH ×3 (09:19→21:59)
[2019-12-12] MEDS: MIDODRINE 5 MG TABLET PO SCH ×3 (09:20→22:00)
[2019-12-12] MEDS: FERROUS SULFATE 325 MG TABLET PO SCH (09:20)
[2019-12-12] MEDS: ASPIRIN EC 325 MG TABLET PO SCH (09:20)
[2019-12-12] MEDS: METOPROLOL TARTRATE 25 MG TABLET PO SCH ×2 (09:20→21:59)
[2019-12-12] MEDS: LORATADINE 10 MG TABLET PO SCH (09:21)
[2019-12-12] MEDS: ALFUZOSIN 10 MG TABLET PO SCH (09:21)
[2019-12-12] MEDS: DOCUSATE SODIUM 100 MG CAPSULE PO SCH (09:23)
[2019-12-12] MEDS: INSULIN REGULAR 100 UNIT/ML SUBCUT SCH ×4 (09:23→22:00)
[2019-12-12] MEDS: CHLORHEXIDINE 0.12% ORAL RINSE 60 ML BOTTLE SWISH/SPIT SCH ×2 (09:24→21:59)
[2019-12-12] MEDS: buPROPion 75 MG TABLET PO SCH (09:46)
[2019-12-12] MEDS: ROSUVASTATIN 20 MG TABLET PO SCH (21:59)
[2019-12-12] MEDS: MONTELUKAST 10 MG TABLET PO SCH (22:00)
[2019-12-12] MEDS: FINASTERIDE 5 MG TABLET PO SCH (22:00)
[2019-12-13] MEDS: ACETAMINOPHEN 325 MG TABLET PO PRN (01:09)
[2019-12-13 05:22] LABS: Basophils # 0.1 10*3/uL (0.0-0.2); Basophils % 0.5 % (0.0-0.8); Eosinophils # 0.5 10*3/uL (0.0-0.87); Eosinophils % 5.3 % (0.00-10.9); Hematocrit 30.7 VOL% (42.0-52.0); Immature Granulocytes Absolute 0.39 #; Lymphocytes # 1.1 10*3/uL (1.4-4.0); Mean Corpuscular HGB Conc 32.6 GM/DL (32-36); Mean Corpuscular Volume 95.6 FL (87-102); Mean Platelet Volume 9.4 FL (9.6-12.0); Monocytes % 8.5 % (1.7-12.7); Neutrophils % 70.7 % (38.7-73.9); Platelet Count 289 T/CUMM (130-400); Red Blood Count 3.21 MC/CUMM (3.8-5.5); Red Cell Distribution Width 14.7 % (9.3-17.3); White Blood Count 9.7 T/CUMM (4-12)
[2019-12-13 06:00] LABS: Alanine Aminotransferase 21 U/L (16-61); Albumin 2.3 G/DL (3.4-5.0); Alkaline Phosphatase 107 U/L (45-117); Aspartate Amino Transferase 24 U/L (0-37); Bilirubin,Indirect 0.4 MG/DL (0.0-1.0); Blood Urea Nitrogen 12 MG/DL (7-18); Calcium 8.6 MG/DL (8.5-10.1); Estimated Glom Filtration Rate 102 ML/MIN; Glucose 115 MG/DL (74-106); Osmolality,Calculated 268.2 MOS/KG (273-304); Total Protein 6.1 G/DL (6.4-8.3)
[2019-12-13 06:08] LABS: Troponin I 0.096 NG/ML (0.00-0.045)
[2019-12-13] MEDS: LEVOTHYROXINE 50 MCG TABLET PO SCH (06:24)
[2019-12-13] MEDS: ALFUZOSIN 10 MG TABLET PO SCH (08:46)
[2019-12-13] MEDS: GABAPENTIN 300 MG CAPSULE PO SCH ×3 (08:47→22:00)
[2019-12-13] MEDS: ASCORBIC ACID 500 MG TABLET PO SCH ×2 (08:47→21:59)
[2019-12-13] MEDS: METOPROLOL TARTRATE 25 MG TABLET PO SCH ×2 (08:47→22:02)
[2019-12-13] MEDS: LORATADINE 10 MG TABLET PO SCH (08:47)
[2019-12-13] MEDS: PANTOPRAZOLE 40 MG TABLET PO SCH (08:47)
[2019-12-13] MEDS: INSULIN REGULAR 100 UNIT/ML SUBCUT SCH ×4 (08:48→22:02)
[2019-12-13] MEDS: RIFAXIMIN 550 MG TABLET PO SCH ×2 (08:48→21:59)
[2019-12-13] MEDS: SIMETHICONE CHEW 80 MG TABLET PO SCH ×4 (08:48→22:00)
[2019-12-13] MEDS: FERROUS SULFATE 325 MG TABLET PO SCH (08:48)
[2019-12-13] MEDS: ASPIRIN EC 325 MG TABLET PO SCH (08:48)
[2019-12-13] MEDS: MIDODRINE 5 MG TABLET PO SCH ×3 (08:49→21:59)
[2019-12-13] MEDS: CHLORHEXIDINE 0.12% ORAL RINSE 60 ML BOTTLE SWISH/SPIT SCH ×2 (08:51→22:02)
[2019-12-13] MEDS: DOCUSATE SODIUM 100 MG CAPSULE PO SCH (08:52)
[2019-12-13] MEDS: buPROPion 75 MG TABLET PO SCH (09:19)
[2019-12-13] MEDS: ROSUVASTATIN 20 MG TABLET PO SCH (21:59)
[2019-12-13] MEDS: MONTELUKAST 10 MG TABLET PO SCH (22:00)
[2019-12-13] MEDS: FINASTERIDE 5 MG TABLET PO SCH (22:00)
[2019-12-14] MEDS: ACETAMINOPHEN 325 MG TABLET PO PRN (01:10)
[2019-12-14] MEDS: LEVOTHYROXINE 50 MCG TABLET PO SCH (06:03)
[2019-12-14 06:06] LABS: Basophils # 0.1 10*3/uL (0.0-0.2); Basophils % 0.7 % (0.0-0.8); Eosinophils # 0.5 10*3/uL (0.0-0.87); Eosinophils % 5.1 % (0.00-10.9); Hematocrit 30.6 VOL% (42.0-52.0); Immature Granulocytes % 3.6 %; Immature Granulocytes Absolute 0.38 #; Lymphocytes # 1.3 10*3/uL (1.4-4.0); Mean Corpuscular HGB Conc 32.7 GM/DL (32-36); Mean Corpuscular Volume 96.5 FL (87-102); Mean Platelet Volume 9.4 FL (9.6-12.0); Monocytes % 9.7 % (1.7-12.7); Neutrophils % 68.9 % (38.7-73.9); Platelet Count 312 T/CUMM (130-400); Red Blood Count 3.17 MC/CUMM (3.8-5.5); Red Cell Distribution Width 14.9 % (9.3-17.3); White Blood Count 10.7 T/CUMM (4-12)
[2019-12-14 06:23] LABS: Calcium 8.3 MG/DL (8.5-10.1); Osmolality,Calculated 274.7 MOS/KG (273-304)
[2019-12-14 08:04] VITALS: BP 118/69
[2019-12-14] MEDS: ASCORBIC ACID 500 MG TABLET PO SCH (09:03)
[2019-12-14] MEDS: FERROUS SULFATE 325 MG TABLET PO SCH (09:03)
[2019-12-14] MEDS: METOPROLOL TARTRATE 25 MG TABLET PO SCH (09:03)
[2019-12-14] MEDS: ASPIRIN EC 325 MG TABLET PO SCH (09:04)
[2019-12-14] MEDS: MIDODRINE 5 MG TABLET PO SCH (09:04)
[2019-12-14] MEDS: RIFAXIMIN 550 MG TABLET PO SCH (09:04)
[2019-12-14] MEDS: PANTOPRAZOLE 40 MG TABLET PO SCH (09:05)
[2019-12-14] MEDS: LORATADINE 10 MG TABLET PO SCH (09:05)
[2019-12-14] MEDS: buPROPion 75 MG TABLET PO SCH (09:05)
[2019-12-14] MEDS: ALFUZOSIN 10 MG TABLET PO SCH (09:07)
[2019-12-14] MEDS: SIMETHICONE CHEW 80 MG TABLET PO SCH ×2 (09:07→12:26)
[2019-12-14] MEDS: GABAPENTIN 300 MG CAPSULE PO SCH (09:07)
[2019-12-14] MEDS: CHLORHEXIDINE 0.12% ORAL RINSE 60 ML BOTTLE SWISH/SPIT SCH (09:10)
[2019-12-14] MEDS: INSULIN REGULAR 100 UNIT/ML SUBCUT SCH ×2 (09:15→12:18)
[2019-12-14] MEDS: DOCUSATE SODIUM 100 MG CAPSULE PO SCH (09:16)
== END 2019-12-14 13:00 | disposition swing bed (61) | DRG 234 ==
LOC: N.EDINP 12:52 → N.ED 12:52 → N.TELES 17:15 → SUATTDRO 12-02 13:14 → N.CVR 12-04 11:51 → N.TELES 12-05 10:39 → N.ICU 12-05 23:50 → N.TELES 12-08 18:28
PROVIDERS: ADMIT Internal Medicine
PROC: CLCCHCL (ICD-10-PCS; 2019-12-02 13:45)

== ENCOUNTER 2020-04-09 22:26 | Observation (INO) ==
[2020-04-09 22:54] LABS: Basophils # 0.1 10*3/uL (0.0-0.2); Basophils % 0.8 % (0.0-0.8); Eosinophils # 0.3 10*3/uL (0.0-0.87); Eosinophils % 4.4 % (0.00-10.9); Hematocrit 42.3 VOL% (42.0-52.0); Hemoglobin 13.3 GM/DL (14.0-18.0); Immature Granulocytes % 0.6 %; Immature Granulocytes Absolute 0.04 #; Lymphocytes # 1.5 10*3/uL (1.4-4.0); Lymphocytes % 22.2 % (21.2-54.2); Mean Corpuscular HGB Conc 31.4 GM/DL (32-36); Mean Corpuscular Volume 92.4 FL (87-102); Monocytes % 8.8 % (1.7-12.7); Neutrophils % 63.2 % (38.7-73.9); Platelet Count 198 T/CUMM (130-400); Red Blood Count 4.58 MC/CUMM (3.8-5.5); Red Cell Distribution Width 15.9 % (9.3-17.3); White Blood Count 6.6 T/CUMM (4-12)
[2020-04-09] MEDS ORDERED: NITROGLYCERIN SL 0.4 MG TABLET SL STA (23:01)
[2020-04-09 23:16] LABS: Alanine Aminotransferase 27 U/L (16-61); Albumin 3.6 G/DL (3.4-5.0); Alkaline Phosphatase 115 U/L (45-117); Aspartate Amino Transferase 35 U/L (0-37); Bilirubin,Total < 0.39 MG/DL (0.2-1.0); Blood Urea Nitrogen 13 MG/DL (7-18); Calcium 8.4 MG/DL (8.5-10.1); Carbon Dioxide 28 MMOL/L (21-32); Estimated Glom Filtration Rate 80 ML/MIN; Glucose 181 MG/DL (74-106); Osmolality,Calculated 287.1 MOS/KG (273-304); Potassium 4.1 MMOL/L (3.5-5.1); Sodium 142 MMOL/L (136-145); Total Protein 7.6 G/DL (6.4-8.3)
[2020-04-09] MEDS ORDERED: SODIUM CHLORIDE 0.9% 500 ML IV STA (23:44)
[2020-04-09] MEDS ORDERED: ENOXAPARIN 30 MG/0.3 ML SYRINGE SUBCUT STA (23:44)
[2020-04-10] MEDS ORDERED: ZALEPLON 5 MG CAPSULE PO PRN (00:10)
[2020-04-10] MEDS ORDERED: ONDANSETRON 4 MG/2 ML VIAL IV PRN (00:10)
[2020-04-10] MEDS ORDERED: GLUCAGON 1 MG VIAL IM PRN (00:10)
[2020-04-10] MEDS ORDERED: DEXTROSE 50% 25 GM/50 ML VIAL IV PRN (00:10)
[2020-04-10] MEDS ORDERED: ENOXAPARIN 80 MG/0.8 ML SYRINGE SUBCUT ONE (00:26)
[2020-04-10] MEDS ORDERED: LORATADINE 10 MG TABLET PO PRN (01:15)
[2020-04-10] MEDS ORDERED: SIMETHICONE CHEW 80 MG TABLET PO PRN (01:15)
[2020-04-10] MEDS: LEVOTHYROXINE 50 MCG TABLET PO SCH (06:40)
[2020-04-10] MEDS ORDERED: NITROGLYCERIN SL 0.4 MG TABLET SL PRN (08:01)
[2020-04-10] MEDS ORDERED: MORPHINE 4 MG/1 ML VIAL IV PRN (08:01)
[2020-04-10 08:45] LABS: Troponin I 0.053 NG/ML (0.00-0.045)
[2020-04-10] MEDS ORDERED: BISOPROLOL 5 MG TABLET PO SCH (09:00)
[2020-04-10] MEDS: GABAPENTIN 300 MG CAPSULE PO SCH ×3 (09:33→20:21)
[2020-04-10] MEDS: ASPIRIN 325 MG TABLET PO SCH (09:33)
[2020-04-10] MEDS: MIDODRINE 5 MG TABLET PO SCH ×3 (09:34→20:20)
[2020-04-10] MEDS: PANTOPRAZOLE 40 MG TABLET PO SCH (09:34)
[2020-04-10] MEDS: FINASTERIDE 5 MG TABLET PO SCH (09:34)
[2020-04-10] MEDS: ALFUZOSIN 10 MG TABLET PO SCH (09:34)
[2020-04-10] MEDS: BISOPROLOL 5 MG TABLET PO SCH (09:34)
[2020-04-10] MEDS: INSULIN REGULAR 100 UNIT/ML SUBCUT SCH ×4 (11:05→20:21)
[2020-04-10] MEDS: ENOXAPARIN 80 MG/0.8 ML SYRINGE SUBCUT SCH (12:30)
[2020-04-10] MEDS ORDERED: ACETAMINOPHEN 325 MG TABLET PO PRN (17:04)
[2020-04-10] MEDS: MONTELUKAST 10 MG TABLET PO SCH (20:21)
[2020-04-10] MEDS: SIMVASTATIN 40 MG TABLET PO SCH (20:21)
[2020-04-11] MEDS: ENOXAPARIN 80 MG/0.8 ML SYRINGE SUBCUT SCH ×2 (00:19→13:03)
[2020-04-11 05:55] LABS: Basophils % 0.5 % (0.0-0.8); Eosinophils # 0.2 10*3/uL (0.0-0.87); Eosinophils % 4.2 % (0.00-10.9); Hematocrit 40.3 VOL% (42.0-52.0); Hemoglobin 13.1 GM/DL (14.0-18.0); Immature Granulocytes % 0.5 %; Immature Granulocytes Absolute 0.03 #; Lymphocytes # 1.5 10*3/uL (1.4-4.0); Lymphocytes % 26.4 % (21.2-54.2); Mean Corpuscular HGB Conc 32.5 GM/DL (32-36); Mean Corpuscular Volume 90.8 FL (87-102); Mean Platelet Volume 10.6 FL (9.6-12.0); Neutrophils % 58.4 % (38.7-73.9); Platelet Count 201 T/CUMM (130-400); Red Blood Count 4.44 MC/CUMM (3.8-5.5); Red Cell Distribution Width 16.1 % (9.3-17.3); White Blood Count 5.5 T/CUMM (4-12)
[2020-04-11 06:15] LABS: Calcium 8.4 MG/DL (8.5-10.1); Potassium 4.2 MMOL/L (3.5-5.1)
[2020-04-11] MEDS: LEVOTHYROXINE 50 MCG TABLET PO SCH (06:36)
[2020-04-11] MEDS: INSULIN REGULAR 100 UNIT/ML SUBCUT SCH ×4 (09:10→20:52)
[2020-04-11] MEDS: ASPIRIN 325 MG TABLET PO SCH (09:15)
[2020-04-11] MEDS: GABAPENTIN 300 MG CAPSULE PO SCH ×3 (09:15→20:51)
[2020-04-11] MEDS: ALFUZOSIN 10 MG TABLET PO SCH (09:16)
[2020-04-11] MEDS: FINASTERIDE 5 MG TABLET PO SCH (09:16)
[2020-04-11] MEDS: MIDODRINE 5 MG TABLET PO SCH ×3 (09:16→20:51)
[2020-04-11] MEDS: PANTOPRAZOLE 40 MG TABLET PO SCH (09:16)
[2020-04-11] MEDS: BISOPROLOL 5 MG TABLET PO SCH (09:18)
[2020-04-11] MEDS: SIMVASTATIN 40 MG TABLET PO SCH (20:51)
[2020-04-11] MEDS: MONTELUKAST 10 MG TABLET PO SCH (20:51)
[2020-04-12 04:37] LABS: Basophils % 0.6 % (0.0-0.8); Eosinophils # 0.2 10*3/uL (0.0-0.87); Eosinophils % 3.3 % (0.00-10.9); Hematocrit 38.9 VOL% (42.0-52.0); Hemoglobin 12.6 GM/DL (14.0-18.0); Immature Granulocytes % 0.5 %; Immature Granulocytes Absolute 0.03 #; Lymphocytes # 1.3 10*3/uL (1.4-4.0); Lymphocytes % 20.3 % (21.2-54.2); Mean Corpuscular HGB Conc 32.4 GM/DL (32-36); Mean Corpuscular Volume 90.5 FL (87-102); Mean Platelet Volume 10.3 FL (9.6-12.0); Monocytes % 11.5 % (1.7-12.7); Neutrophils % 63.8 % (38.7-73.9); Platelet Count 201 T/CUMM (130-400); Red Cell Distribution Width 15.9 % (9.3-17.3); White Blood Count 6.5 T/CUMM (4-12)
[2020-04-12 04:52] LABS: Calcium 8.5 MG/DL (8.5-10.1); Potassium 4.5 MMOL/L (3.5-5.1)
[2020-04-12] MEDS: LEVOTHYROXINE 50 MCG TABLET PO SCH (05:44)
[2020-04-12] MEDS: INSULIN REGULAR 100 UNIT/ML SUBCUT SCH ×3 (09:14→16:49)
[2020-04-12] MEDS: ASPIRIN 325 MG TABLET PO SCH (09:22)
[2020-04-12] MEDS: BISOPROLOL 5 MG TABLET PO SCH (09:23)
[2020-04-12] MEDS: MIDODRINE 5 MG TABLET PO SCH ×2 (09:23→14:28)
[2020-04-12] MEDS: GABAPENTIN 300 MG CAPSULE PO SCH ×2 (09:23→14:28)
[2020-04-12] MEDS: ALFUZOSIN 10 MG TABLET PO SCH (09:23)
[2020-04-12] MEDS: PANTOPRAZOLE 40 MG TABLET PO SCH (09:23)
[2020-04-12] MEDS: FINASTERIDE 5 MG TABLET PO SCH (09:26)
[2020-04-12 18:04] VITALS: BP 121/76
[2020-04-12 19:05] LABS: Lymphocytes,Pleural Fluid 55 %; Monocytes,Pleural Fluid 30 %; Neutrophils,Pleural Fluid 15 %; RBC,Pleural Fluid 31152 T/CUMM
== END 2020-04-12 19:25 | disposition home or self-care (01) ==
LOC: N.EDINP 22:26 → N.ED 22:26 → SUATTDRO 04-10 00:10 → N.EDINP 04-10 01:51 → N.TELES 04-10 05:27
PROVIDERS: ADMIT Internal Medicine; ATTEND Internal Medicine

== ENCOUNTER 2020-06-12 09:09 | Inpatient (IN) ==
[2020-06-12] MEDS ORDERED: SODIUM CHLORIDE 0.9% 2,000 ML IV STA (09:42)
[2020-06-12 10:00] LABS: Basophils % 0.4 % (0.0-0.8); Eosinophils # 0.1 10*3/uL (0.0-0.87); Hematocrit 38.2 VOL% (42.0-52.0); Hemoglobin 13.3 GM/DL (14.0-18.0); Immature Granulocytes % 0.4 %; Immature Granulocytes Absolute 0.03 #; Lymphocytes # 0.7 10*3/uL (1.4-4.0); Lymphocytes % 8.7 % (21.2-54.2); Mean Corpuscular HGB Conc 34.8 GM/DL (32-36); Mean Platelet Volume 11.4 FL (9.6-12.0); Neutrophils % 75.5 % (38.7-73.9); Red Blood Count 4.29 MC/CUMM (3.8-5.5); Red Cell Distribution Width 14.2 % (9.3-17.3); White Blood Count 7.8 T/CUMM (4-12)
[2020-06-12 10:05] LABS: Platelet Count 115 T/CUMM (130-400)
[2020-06-12 10:29] LABS: Hypochromasia Slight; Microcytosis Slight
[2020-06-12 11:38] LABS: Bilirubin,Urine Negative (Negative); Blood, Urine Negative (Negative); Glucose,Urine (UA) Negative (Negative); Hyaline Casts,Urine 32 /LPF (0-3); Ketones,Urine Negative (Negative); Mucus,Urine Many /LPF (Occasional); Nitrite,Urine Negative (Negative); Protein,Urine 30 MG/DL; RBC,Urine 1 /HPF (0-4); Urine Appearance Slightly Hazy (Clear); Urine Color Yellow (Yellow); Urine Specific Gravity 1.024 (1.001-1.035); Urine Urobilinogen < 2.0 EU/DL (0.2-1.0)
[2020-06-12 12:18] LABS: Albumin 3.3 G/DL (3.4-5.0); Bilirubin,Total 0.5 MG/DL (0.2-1.0); Calcium 8.1 MG/DL (8.5-10.1); Osmolality,Calculated 272.2 MOS/KG (273-304); Potassium 3.7 MMOL/L (3.5-5.1); Total Protein 7.6 G/DL (6.4-8.2)
[2020-06-12] MEDS ORDERED: GLUCAGON 1 MG VIAL IM PRN ×2 (13:09)
[2020-06-12] MEDS ORDERED: ONDANSETRON 4 MG/2 ML VIAL IV PRN (13:09)
[2020-06-12] MEDS ORDERED: DEXTROSE 50% 25 GM/50 ML VIAL IV PRN ×2 (13:09)
[2020-06-12] MEDS: SODIUM CHLORIDE 0.9% 1,000 ML IV SCH ×2 (13:50→23:20)
[2020-06-12] MEDS ORDERED: LOPERAMIDE 2 MG CAPSULE PO PRN (14:15)
[2020-06-12] MEDS: PANTOPRAZOLE 40 MG TABLET PO SCH (14:32)
[2020-06-12] MEDS: ENOXAPARIN 40 MG/0.4 ML SYRINGE SUBCUT SCH (14:32)
[2020-06-12] MEDS: INSULIN LISPRO 100 UNIT/ML SUBCUT SCH ×2 (15:41→21:17)
[2020-06-12] MEDS: CEFEPIME 1,000 MG in SODIUM CHLORIDE 0.9% 100 ML IV SCH ×2 (16:08→23:20)
[2020-06-12] MEDS: VANCOMYCIN INJ 1,000 MG in SODIUM CHLORIDE 0.9% 250 ML IV SCH (16:09)
[2020-06-12] MEDS: ACETAMINOPHEN 325 MG TABLET PO PRN (20:45)
[2020-06-12] MEDS: MELATONIN 3 MG TABLET PO PRN (23:45)
[2020-06-13] MEDS: CEFEPIME 1,000 MG in SODIUM CHLORIDE 0.9% 100 ML IV SCH ×3 (03:56→10:23)
[2020-06-13] MEDS: VANCOMYCIN INJ 1,000 MG in SODIUM CHLORIDE 0.9% 250 ML IV SCH (05:15)
[2020-06-13 06:05] LABS: Basophils % 0.6 % (0.0-0.8); Eosinophils # 0.3 10*3/uL (0.0-0.87); Eosinophils % 5.6 % (0.00-10.9); Hematocrit 33.8 VOL% (42.0-52.0); Hemoglobin 11.2 GM/DL (14.0-18.0); Immature Granulocytes % 0.8 %; Immature Granulocytes Absolute 0.04 #; Lymphocytes # 0.8 10*3/uL (1.4-4.0); Lymphocytes % 15.7 % (21.2-54.2); Mean Corpuscular HGB Conc 33.1 GM/DL (32-36); Mean Corpuscular Volume 94.2 FL (87-102); Mean Platelet Volume 9.9 FL (9.6-12.0); Monocytes % 15.7 % (1.7-12.7); Neutrophils % 61.6 % (38.7-73.9); Platelet Count 116 T/CUMM (130-400); Red Blood Count 3.59 MC/CUMM (3.8-5.5); Red Cell Distribution Width 14.1 % (9.3-17.3); White Blood Count 4.8 T/CUMM (4-12)
[2020-06-13 06:26] LABS: Band Neutrophils 2 % (0-10); Eosinophils 3 % (0-10); Lymphocytes 11 % (20-55); Platelet Estimate Normal; Segmented Neutrophils 73 % (50-85); Total Cells Counted 100
[2020-06-13 06:39] LABS: Albumin 2.9 G/DL (3.4-5.0); Bilirubin,Total 0.9 MG/DL (0.2-1.0); Calcium 8.1 MG/DL (8.5-10.1); Osmolality,Calculated 276.8 MOS/KG (273-304); Potassium 4.2 MMOL/L (3.5-5.1); Thyroid Stimulating Hormone 3.96 uIU/ml (0.358-3.74); Total Protein 6.6 G/DL (6.4-8.2)
[2020-06-13] MEDS: PANTOPRAZOLE 40 MG TABLET PO SCH (08:31)
[2020-06-13] MEDS: INSULIN LISPRO 100 UNIT/ML SUBCUT SCH ×4 (08:34→20:15)
[2020-06-13] MEDS: cefTRIAXone 1,000 MG in SODIUM CHLORIDE 0.9% 100 ML IV SCH (12:06)
[2020-06-13] MEDS: ACETAMINOPHEN 325 MG TABLET PO PRN (12:10)
[2020-06-13] MEDS: metroNIDAZOLE INJ 500 MG/100 ML PREMIX IV SCH ×2 (12:41→20:17)
[2020-06-13] MEDS: IPRATROPIUM 0.06% NASAL SPRAY 15 ML BOTTLE BOTH NARES SCH ×2 (12:50→20:22)
[2020-06-13] MEDS: ENOXAPARIN 40 MG/0.4 ML SYRINGE SUBCUT SCH (14:02)
[2020-06-13] MEDS: MIDODRINE 5 MG TABLET PO SCH ×2 (14:03→20:17)
[2020-06-13] MEDS ORDERED: LACTULOSE 20 GM/30 ML UDCUP PO PRN (19:37)
[2020-06-13] MEDS ORDERED: chlorproMAZINE INJ 25 MG in SODIUM CHLORIDE 0.9% 100 ML IV PRN (19:37)
[2020-06-13] MEDS ORDERED: diphenhydrAMINE CAP 25 MG CAPSULE PO PRN (19:37)
[2020-06-13] MEDS ORDERED: MYLANTA/LIDO VISC 2:1 300 ML BOTTLE SWISH/SWAL PRN (19:37)
[2020-06-13] MEDS ORDERED: PROMETHAZINE INJ 25 MG in SODIUM CHLORIDE 0.9% 50 ML IV PRN (19:37)
[2020-06-13] MEDS ORDERED: guaiFENesin 200 MG/10 ML UDCUP PO PRN (19:37)
[2020-06-13] MEDS ORDERED: chlorproMAZINE INJ 50 MG in SODIUM CHLORIDE 0.9% 100 ML IV PRN (19:37)
[2020-06-13] MEDS ORDERED: ALPRAZolam 0.25 MG TABLET PO PRN (19:37)
[2020-06-13] MEDS ORDERED: BENZTROPINE 2 MG/2 ML AMP IV PRN (19:37)
[2020-06-13] MEDS ORDERED: LOPERAMIDE 2 MG CAPSULE PO PRN ×2 (19:37)
[2020-06-13] MEDS ORDERED: chlorproMAZINE 25 MG TABLET PO PRN (19:37)
[2020-06-13] MEDS ORDERED: TEMAZEPAM 7.5 MG CAPSULE PO PRN (19:37)
[2020-06-13] MEDS ORDERED: MAGNESIUM HYDROXIDE SUSP 30 ML UDCUP PO PRN (19:37)
[2020-06-13] MEDS ORDERED: MYLANTA/LIDO VISC 2:1 300 ML BOTTLE SWISH/SPIT PRN (19:37)
[2020-06-13] MEDS ORDERED: ALUMINUM/MAGNES/SIMETH MAX STR 30 ML UDCUP PO PRN (19:37)
[2020-06-13] MEDS ORDERED: ONDANSETRON 4 MG/2 ML VIAL IV PRN (19:37)
[2020-06-13] MEDS: SIMVASTATIN 40 MG TABLET PO SCH (20:16)
[2020-06-13] MEDS: MONTELUKAST 10 MG TABLET PO SCH (20:17)
[2020-06-13] MEDS: SODIUM CHLORIDE 0.9% 1,000 ML IV SCH ×2 (20:20→20:27)
[2020-06-13] MEDS: MELATONIN 3 MG TABLET PO PRN (22:28)
[2020-06-14] MEDS: MELATONIN 3 MG TABLET PO PRN ×2 (00:58→21:02)
[2020-06-14 05:38] LABS: Basophils % 1.2 % (0.0-0.8); Eosinophils # 0.2 10*3/uL (0.0-0.87); Eosinophils % 7.1 % (0.00-10.9); Hematocrit 34.9 VOL% (42.0-52.0); Hemoglobin 11.9 GM/DL (14.0-18.0); Immature Granulocytes % 1.5 %; Immature Granulocytes Absolute 0.05 #; Lymphocytes # 0.5 10*3/uL (1.4-4.0); Lymphocytes % 13.8 % (21.2-54.2); Mean Corpuscular HGB Conc 34.1 GM/DL (32-36); Mean Corpuscular Volume 91.4 FL (87-102); Mean Platelet Volume 9.9 FL (9.6-12.0); Monocytes % 11.8 % (1.7-12.7); Neutrophils % 64.6 % (38.7-73.9); Platelet Count 138 T/CUMM (130-400); Red Blood Count 3.82 MC/CUMM (3.8-5.5); Red Cell Distribution Width 14.2 % (9.3-17.3); White Blood Count 3.4 T/CUMM (4-12)
[2020-06-14] MEDS: metroNIDAZOLE INJ 500 MG/100 ML PREMIX IV SCH ×3 (05:39→21:01)
[2020-06-14] MEDS: LEVOTHYROXINE 50 MCG TABLET PO SCH (05:39)
[2020-06-14 05:56] LABS: Bilirubin,Total 0.5 MG/DL (0.2-1.0); Calcium 8.1 MG/DL (8.5-10.1); Osmolality,Calculated 284.1 MOS/KG (273-304); Potassium 3.4 MMOL/L (3.5-5.1); Total Protein 6.9 G/DL (6.4-8.2)
[2020-06-14] MEDS: INSULIN LISPRO 100 UNIT/ML SUBCUT SCH ×4 (07:08→21:02)
[2020-06-14] MEDS: IPRATROPIUM 0.06% NASAL SPRAY 15 ML BOTTLE BOTH NARES SCH ×3 (09:14→18:21)
[2020-06-14] MEDS: FINASTERIDE 5 MG TABLET PO SCH (09:15)
[2020-06-14] MEDS: ASPIRIN EC 81 MG TABLET PO SCH (09:16)
[2020-06-14] MEDS: MIDODRINE 5 MG TABLET PO SCH ×3 (09:16→21:02)
[2020-06-14] MEDS: PANTOPRAZOLE 40 MG TABLET PO SCH (09:17)
[2020-06-14] MEDS: GABAPENTIN 300 MG CAPSULE PO PRN (09:19)
[2020-06-14] MEDS ORDERED: MAGNESIUM SULF RIDER 2 GM/50 ML PREMIX IV PRN (10:04)
[2020-06-14] MEDS ORDERED: POTASSIUM CHLORIDE 20 MEQ/15 ML UDCUP PO ONE (10:04)
[2020-06-14] MEDS ORDERED: MAGNESIUM SULF RIDER 4 GM/100 ML PREMIX IV PRN (10:04)
[2020-06-14] MEDS: SODIUM CHLORIDE 0.9% 1,000 ML IV SCH (10:19)
[2020-06-14] MEDS: cefTRIAXone 1,000 MG in SODIUM CHLORIDE 0.9% 100 ML IV SCH (12:06)
[2020-06-14] MEDS: ENOXAPARIN 40 MG/0.4 ML SYRINGE SUBCUT SCH (13:22)
[2020-06-14] MEDS ORDERED: ALFUZOSIN 10 MG TABLET PO ONE (16:12)
[2020-06-14 18:46] LABS: Cyclic Citrull Peptide Interp Negative
[2020-06-14] MEDS: MONTELUKAST 10 MG TABLET PO SCH (21:02)
[2020-06-14] MEDS: SIMVASTATIN 40 MG TABLET PO SCH (21:02)
[2020-06-15] MEDS: metroNIDAZOLE INJ 500 MG/100 ML PREMIX IV SCH (04:01)
[2020-06-15] MEDS: IPRATROPIUM 0.06% NASAL SPRAY 15 ML BOTTLE BOTH NARES SCH (07:06)
[2020-06-15] MEDS: LEVOTHYROXINE 50 MCG TABLET PO SCH (07:06)
[2020-06-15] MEDS: INSULIN LISPRO 100 UNIT/ML SUBCUT SCH (07:21)
[2020-06-15 07:49] VITALS: BP 103/66
[2020-06-15] MEDS ORDERED: ALFUZOSIN 10 MG TABLET PO SCH (09:00)
[2020-06-15] MEDS: ASPIRIN EC 81 MG TABLET PO SCH (09:17)
[2020-06-15] MEDS: FINASTERIDE 5 MG TABLET PO SCH (09:17)
[2020-06-15] MEDS: GABAPENTIN 300 MG CAPSULE PO PRN (09:17)
[2020-06-15] MEDS: MIDODRINE 5 MG TABLET PO SCH (09:17)
[2020-06-15] MEDS: PANTOPRAZOLE 40 MG TABLET PO SCH (09:18)
[2020-06-20 09:40] LABS: Anti-Nuclear Antibody Pattern Homogeneous
== END 2020-06-15 11:09 | disposition home health service (06) | DRG 392 ==
LOC: N.ED 09:09 → SUATTDRO 12:36 → N.EDINP 12:36 → N.4E 13:30
PROVIDERS: ADMIT Hospitalist; ATTEND Internal Medicine